=== PATIENT | female | born 1950 | race Caucasian/White ===

== ENCOUNTER → 2017-08-06 | Outpatient (CLI) | payer OTHER ==
--- NOTE | 2017-08-07 09:08 | ECHOF ---
Referral Reason:Tachycardia R00.0 MEASUREMENTS -------- HEIGHT: 165.1 cm WEIGHT: 35.4 kg BP: RVIDd: 1.5 cm (< 3.3) IVSd: 1.0 cm (0.6 - 1.1) LVIDd: 2.8 cm (3.9 - 5.3) LVPWd: 1.1 cm (0.6 - 1.1) IVSs: 1.4 cm LVIDs: 1.8 cm LVPWs: 1.4 cm LAESV Index (A-L): 9.01 ml/m Ao Diam: 2.6 cm (2.0 - 3.7) AV Cusp: 1.4 cm (1.5 - 2.6) LA Diam: 1.8 cm (2.7 - 3.8) MV E Sreekanth: 0.56 m/s MV DecT: 282 ms MV A Sreekanth: 0.84 m/s MV E/A Ratio: 0.67 RAP: 5.00 mmHg RVSP: 8.72 mmHg FINDINGS -------- Resting tachycardia (HR>100bpm). This was a technically adequate study. The left ventricular size is normal. Left ventricular wall thickness is normal. Overall left vent ricular systolic function is normal with, an EF between 55 - 60 %. The right ventricle is normal in size and function. Normal LA size by volume 22+/-6 ml/m2. The right atrium is normal in size. There is mild aortic valve sclerosis. There is no evidence of aortic regurgitation. There is no e vidence of aortic stenosis. The mitral valve leaflets are mildly thickened. There is trace to mild mitral regurgitation. Trace tricuspid regurgitation present. Right ventricular systolic pressure is normal at < 35 mmHg. There is no evidence of pulmonary hypertension. The pulmonic valve was not well visualized. The aortic root size is normal. Normal inferior vena cava with normal inspiratory collapse consistent with estimated right atrial pre ssure of 5 mmHg. There is a small pericardial effusion is located near the right ventricle. CONCLUSIONS -------- 1. Resting tachycardia (HR>100bpm). 2. This was a technically adequate study. 3. The left ventricular size is normal. 4. Left ventricular wall thickness is normal. 5. Overall left ventricular systolic function is normal with, an EF between 55 - 60 %. 6. Normal LA size by volume 22+/-6 ml/m2. 7. There is mild aortic valve sclerosis. 8. The mitral valve leaflets are mildly thickened. 9. There is trace to mild mitral regurgitation. 10. Trace tricuspid regurgitation present. 11. Right ventricular systolic pressure is normal at < 35 mmHg. 12. There is no evidence of pulmonary hypertension. 13. The pulmonic valve was not well visualized. 14. The aortic root size is normal. 15. There is a small pericardial effusion is located near the right ventricle. ROTARY DRIER FEEDER: Matthew Aguiar RDCS
== END ==
LOC: RADECHMAIN 15:23
DX: I35.8 Other nonrheumatic aortic valve disorders (principal)
CPT/HCPCS: 93306

== ENCOUNTER → 2017-08-31 | Outpatient (CLI) | payer OTHER ==
--- NOTE | 2017-09-01 07:14 | MM ---
Reason for exam: screening (asymptomatic). History: Patient is postmenopausal. Took hormonal contraceptives for 15 years. Physical Findings: A clinical breast exam by your physician is recommended on an annual basis and results should be correlated with mammographic findings. MG Screening Mammo w CAD Bilateral CC and MLO view(s) were taken. No prior studies available for comparison. The breast tissue is extremely dense which could obscure a lesion on mammography. Benign appearing bilateral calcifications. No suspicious abnormality. ASSESSMENT: Benign, BI-RAD 2 RECOMMENDATION: Routine screening mammogram of both breasts in 1 year.
== END | disposition home or self-care (01) ==
LOC: RADMAMWWP 08:44
DX: Z12.31 Encounter for screening mammogram for malignant neoplasm of breast (principal)
CPT/HCPCS: 77067

== ENCOUNTER → 2017-09-14 | Outpatient (CLI) | payer OTHER ==
--- NOTE | 2017-09-14 22:19 | MR ---
EXAMINATION TYPE: MR lumbar spine wo con DATE OF EXAM: 09/14/2017 COMPARISON: NONE HISTORY: Low back pain CONTRAST: 0 mL intravenous Gadavist. TECHNIQUE: Multiplanar, multisequence images of the lumbar spine were acquired. FINDINGS: L5-S1: No significant disc bulge or disc herniation. No spinal canal stenosis. No foraminal stenosi s. Mild facet hypertrophy is present without foraminal or spinal canal stenosis. L4-L5: Broad-based central disc bulge has mild to moderate anterior thecal sac compression. Neural fo ramen are patent. There is facet hypertrophy and ligamentum flavum laxity with posterior lateral thec al sac compression. Stenosis is not identified. The superior endplate of L5 has a compression deform ity with approximately 20% loss of mid vertebral body height... L3-L4: Mild disc bulge has anterior thecal sac contact. No spinal canal stenosis. No foraminal sten osis. Facet hypertrophy and ligamentum flavum laxity has posterior lateral thecal sac compression.. L2-L3: Broad-based disc bulge is mild anterior thecal sac compression. No AP spinal canal stenosis pr esent. Neural foramen are patent. Mild ligamentum flavum laxity is posterior lateral thecal sac compr ession. L1-L2: No significant disc bulge or disc herniation. No spinal canal stenosis. No foraminal stenosi s. . T12-L1: No significant disc bulge or disc herniation. No spinal canal stenosis. No foraminal stenos is. There is a superior endplate compression deformity. This may be slightly greater posteriorly. Po sterior wall displacement is evident estimated at 3 mm. This has moderate anterior thecal sac kristen mark. No cord contact is evident. No spinal canal stenosis is present. Neural foramen are patent. Oss eous signal appears normal suggesting the compression deformities are normal. IMPRESSION: 1. Compression deformity superior endplate L1 with posterior superior wall displacement causing moder ate anterior thecal sac compression. No cord contact is evident. 2. Superior endplate compression deformity L5. 3. Broad-based central disc bulging L4-5 with mild to moderate anterior thecal sac compression and mi ld disc bulging at L3-4. Mild disc bulge is present L2-L3
== END | disposition home or self-care (01) ==
LOC: RADMRIMAIN 07:35
DX: M51.26 Other intervertebral disc displacement, lumbar region (principal); M43.8X6 Other specified deforming dorsopathies, lumbar region
CPT/HCPCS: 72148

== ENCOUNTER → 2018-08-23 | Outpatient (CLI) | payer OTHER ==
--- NOTE | 2018-08-29 09:11 | CT ---
EXAMINATION TYPE: CT chest w con DATE OF EXAM: 08/23/2018 COMPARISON: Outside CT 06/25/2017 HISTORY: 68-year-old female Solitary pulmonary nodule TECHNIQUE: Contiguous axial scanning of the chest after the administration of 100 ml mL of Isovue 300 . Coronal/sagittal reconstructions performed. CT DLP: 105.20mGycm. Automatic exposure control utilized for a dose reduction. FINDINGS: Heart normal size without pericardial effusion. Coronary vessel calcifications are present. Aorta normal caliber with conventional arch vessel branching anatomy. No thoracic lymphadenopathy. There is some focal 2.4 x 1.3 cm soft tissue thickening along the anterior margin of the heart near t he level of the aortic root, refer to axial image 31. This density appears increased from prior exam but may represent adjacent atelectasis or scarring. This prominent biapical pleural parenchymal scarring which appears relatively similar. Multiple linear areas of scarring is demonstrated especially in the anterior mid lungs. Some endobron chial opacification within the distal inferior lingular bronchi persists. Some of the [place] cities seen previously show improvement in the interval. There is some dependent mottled density within the trachea and mild bibasilar bronchiectasis. No new consolidation and no pleural effusion. Questionable area of prior small cavitary change at the left apex seems to have resolved. Postsurgical changes at the GE junction few scattered renal hypodensities likely represent cysts sathish uring up to 1.5 cm. Dextroconvex scoliosis centered along the thoracolumbar junction. Mild superior endplate deformity of L1 is unchanged. Slight retropulsion into the ventral spinal canal is unchanged. Inferior endplate deformity of T6 in the interval without surrounding paravertebral hematoma. IMPRESSION: 1. Multifocal scattered tree-in-bud opacities as well as a small cavitary change at the left apex see n on the patient's outside 06/25/2017 CT have improved in the interval. 2. However, COPD with extensive bilateral scarring, some endobronchial mucoid plugging such as in the inferior lingula, and mild bibasilar bronchiectasis persist. There is also some retained secretions/ mucoid debris located dependently within the trachea. 3. Focal 2.4 x 1.3 cm soft tissue thickening within the anterior medial right midlung along the anter ior margin of the heart. This could represent a new area of subpleural atelectasis or scarring. An ar ea of developing pneumonia or early neoplasm are also in the differential. 3 month follow-up to reass ess after any potential treatment. 4. Inferior endplate deformity of T6. The lack of surrounding inflammation suggests a now chronic com pression deformity though new from 06/25/2017.
== END | disposition home or self-care (01) ==
LOC: RADCTMAIN 07:54
PROVIDERS: ATTEND Family Medicine
DX: J44.9 Chronic obstructive pulmonary disease, unspecified (principal); J98.4 Other disorders of lung
CPT/HCPCS: 82565; 84520; 71260; 36415; Q9967

== ENCOUNTER → 2018-09-01 | Outpatient (CLI) | payer OTHER ==
--- NOTE | 2018-09-05 09:25 | MM ---
Reason for exam: screening (asymptomatic). Last mammogram was performed 1 year ago. History: Patient is postmenopausal. Took hormonal contraceptives for 15 years. Physical Findings: A clinical breast exam by your physician is recommended on an annual basis and results should be correlated with mammographic findings. MG Screening Mammo w CAD Bilateral CC, MLO, and XCCL view(s) were taken. Prior study comparison: August 31, 2017, bilateral MG screening mammo w CAD. The breast tissue is extremely dense which could obscure a lesion on mammography. Bilateral vascular calcifications. No significant changes when compared with prior studies. ASSESSMENT: Negative, BI-RAD 1 RECOMMENDATION: Routine screening mammogram of both breasts in 1 year. Patient should continue monthly self breast exams. A negative report should not preclude additional follow up of suspicious palpable abnormalities.
== END | disposition home or self-care (01) ==
LOC: RADMAMWWP 10:44
PROVIDERS: ATTEND Family Medicine
DX: Z12.31 Encounter for screening mammogram for malignant neoplasm of breast (principal)
CPT/HCPCS: 77067

== ENCOUNTER → 2019-04-18 | Outpatient (CLI) | payer OTHER ==
[2019-04-18 11:03] LABS: Basophils # (A) 0.1 k/uL (0-0.2); Basophils % (A) 2 %; Eosinophils # (A) 0.3 k/uL (0-0.7); Eosinophils % (A) 4 %; HGB 16.7 gm/dL (11.4-16.0); Lymphocytes # (A) 1.1 k/uL (1.0-4.8); Lymphocytes % (A) 15 %; MCH 29.3 pg (25.0-35.0); MCHC 30.2 g/dL (31.0-37.0); MCV 97.1 fL (80.0-100.0); Mean Platelet Volume 8.5; Monocytes # (A) 0.2 k/uL (0-1.0); Monocytes % (A) 3 %; Neutrophils # (A) 5.8 k/uL (1.3-7.7); Neutrophils % (A) 73 %; Platelet Count 272 k/uL (150-450); RBC 5.68 m/uL (3.80-5.40); RDW 13.1 % (11.5-15.5); WBC 7.9 k/uL (3.8-10.6)
[2019-04-18 11:04] LABS: HCT 55.1 % (34.0-46.0)
[2019-04-18 11:36] LABS: Albumin 4.5 g/dL (3.5-5.0); Calcium 10.1 mg/dL (8.4-10.2); Potassium 4.2 mmol/L (3.5-5.1); Total Bilirubin 0.5 mg/dL (0.2-1.3); Total Protein 7.9 g/dL (6.3-8.2)
[2019-04-18 11:52] LABS: T4, Free (Free Thyroxine) 0.87 ng/dL (0.78-2.19)
--- NOTE | 2019-04-18 13:37 | CT ---
EXAMINATION TYPE: CT abdomen pelvis wo/w con DATE OF EXAM: 04/18/2019 COMPARISON: None HISTORY: Stomach pains CT DLP: 489.1 mGycm CONTRAST: CT scan of the abdomen and pelvis is performed with Oral Contrast and with IV Contrast, patient injec edgar with 78 mL of Isovue 300. FINDINGS: LUNG BASES-: No visible nodule. No infiltrate. LIVER/GB: No calcified gallstones. No space occupying hepatic lesion. Biliary tree is of normal ca liber. PANCREAS: No inflammation. No distinct mass. SPLEEN: No splenic enlargement. No lesion seen. ADRENALS: No nodule. No thickening. KIDNEYS/BLADDER: No hydronephrosis. Several tiny sub-3 mm calculi left kidney. No distinct renal mas s. Urinary bladder grossly unremarkable. BOWEL: Normal appendix. Normal bowel caliber. No inflammation. GENITAL ORGANS: No gross abnormality. LYMPH NODES: No greater than 1cm abdominal or pelvic lymph nodes are appreciated. AORTA: No significant abnormality. OSSEOUS STRUCTURES: Chronic mild compression fracture superior endplate of L5. OTHER: No significant additional abnormality is seen. IMPRESSION: 1. Nonobstructing nephrolithiasis. 2. Chronic mild superior endplate compression fracture of L5.
[2019-04-18 18:30] LABS: Gliadin AB IgA, Deaminated NEGATIVE (NEGATIVE); Gliadin AB IgA, Unit <0.2 U/mL; Gliadin AB IgG, Deaminated NEGATIVE (NEGATIVE)
== END | disposition home or self-care (01) ==
LOC: RADCTMAIN 10:12
PROVIDERS: ATTEND Internal Medicine
DX: N20.0 Calculus of kidney (principal); R10.9 Unspecified abdominal pain
CPT/HCPCS: 84439; 80053; 82150; 83690; 84443; 85025; 83516 ×4; 74178; Q9967 ×2

== ENCOUNTER → 2019-10-20 | Outpatient (CLI) | payer OTHER ==
--- NOTE | 2019-10-21 13:38 | CT ---
EXAMINATION TYPE: CT ChestAbdPelvis wo con DATE OF EXAM: 10/20/2019 INDICATION: Abnormal weight loss COMPARISON: 04/18/2019 CT DLP: 459 mGycm CONTRAST: Performed with Oral Contrast and no intravenous contrast due to elevated laboratory results. TECHNIQUE: Axial images at 5 mm thick sections. Reconstructed images in the coronal plane. Delayed images through the kidneys. FINDINGS: CT CHEST: Portion of the thyroid visualized is normal. There is a 1.5 x 1.8 cm lobular density at the posterior right apex. Workup for neoplasm is recommend ed. There is a 1.5 x 0.5 cm thickening along the superior left apex. Series 3 image 7. There is some mild thickening along the right major fissure. Small peripheral nodule is in the right middle lobe measuring 0.6 cm. Series 4 image 26. No enlarged mediastinal or hilar adenopathy is evident. The ascending aorta diameter at the level of the main pulmonary artery is 3.2 cm. The main pulmonary artery diameter at the bifurcation is 2.4 cm. Coronary artery calcification is present. CT ABDOMEN: Liver: Normal Spleen: Normal Pancreas: Normal Adrenal glands: The adrenal glands are normal. Gallbladder: Normal Kidneys: No masses are evident. No hydronephrosis is present. There is a 1.2 cm cyst measuring 6 Ho unsfield units at superior pole left kidney. There is a 0.6 cm cortical renal cyst within the anterio r right mid kidney measuring 8 Hounsfield units. Nonobstructing punctate renal stones are present wit hin the left kidney. The largest in the upper pole measures 0.2 cm. Series 3 image 58. A posterior la teral calcification measures 0.2 cm. Series image 60 inferior pole there is a 0.5 cm calcification. S eries 3 image 66. A punctate calcification superior pole right kidney is nonobstructing. Aorta: Vascular calcification is within the aorta. Inferior vena cava: Normal. CT PELVIS: Loops of bowel within the abdomen and pelvis are normal. There are loops of bowel which are incom pletely distended or lack oral contrast limiting their evaluation. Appendix: Not identified. No dilated tubular structures or inflammatory changes are evident. This is limited given lack of abdominal fat. Urinary bladder: Decompressed limiting evaluation. Genitourinary structures: Uterus appears unremarkable. Adnexal regions are clear. Osseous structures: No suspicious lytic or sclerotic lesions. IMPRESSIONS: 1. Apical lung masses larger on the posterior right. Additional workup for lung neoplasm is recommend ed. 2. Nonobstructing bilateral renal stones. A Yellow level critical message alert has been initiated for Arias Silva DO via the [employer] Critical Results System on 10/21/2019 1:36 PM. This message alert has been sent to Arias mcbride DO via the preferences provided by the clinician for the receipt of Radiology Critical Findings. Message ID [id number].
== END | disposition home or self-care (01) ==
LOC: RADCTMAIN 10:33
PROVIDERS: ATTEND Family Medicine
DX: N20.0 Calculus of kidney (principal); R91.8 Other nonspecific abnormal finding of lung field; R63.4 Abnormal weight loss
CPT/HCPCS: 71250; 74176; 82565; 84520

== ENCOUNTER 2019-12-28 12:30 | Day surgery (SDC) | payer MEDICARE, OTHER ==
[2019-12-26 16:16] VITALS: BMI 11.8
[~2019-12-28 12:30] MED LIST: LACTATED RINGERS 1,000 ML IV SCH; LIDOCAINE 1% (10MG/ML) FOR IV START INTRADERMA PRN
[2019-12-28 13:00] VITALS: TEMP 97.7
[2019-12-28] MEDS ORDERED: fentaNYL (PF) 50 MCG/ML 2 ML AMP IV ONE (13:28)
[2019-12-28] MEDS ORDERED: LIDOCAINE 1% INJ 10MG/ML (20 ML MDV) ONE (14:05)
[2019-12-28] MEDS ORDERED: PROPOFOL 10 MG/ML 20 ML VIAL IV ONE (14:05)
[2019-12-28 15:06] VITALS: RESP 16
--- NOTE | 2019-12-28 15:16 | P.PCN ---
Date of Procedure: 12/28/19 Description of Procedure: Brief history: Patient is a pleasant 69-year-old female presenting for outpatient EGD and colonoscopy for evaluation of GERD and rectal hemorrhage. Patient has been seen in the office reporting abdominal pain, reflux, and intermittent blood per rectum. Last EGD and colonoscopy in 2015. Patient had approximately 10 pounds of weight loss unintentionally. Procedure performed: Esophagogastroduodenoscopy with biopsy Colonoscopy Estimated blood loss: Minimal. Preoperative diagnosis: GERD, rectal hemorrhage, last colonoscopy 2015 Anesthesia: MAC Procedure: After informed consent was obtained from the patient was brought into the endoscopy unit and IV sedation was administered by anesthesia under continuous monitoring. Initially upper endoscopy was done. The Olympus GF 190 video endoscope was inserted into the mouth and esophagus intubated without any diffi culty and was gradually advanced into the gastric remnant and then into the small bowel. The patient's anatomy was consistent with prior gastric bypass surgery with anastomosis intact. Mild erythema in the gastric remnant with biopsies taken. The small bowel appeared normal with biopsies taken. The scope was then withdrawn back through the small bowel into the gastric remnant and into the esophagus which appeared normal with the GE junction located at 40 cm from the incisors. At this time the patient continued to remain sedation. Initial digital rectal examination was normal. Olympus CF 190 video colonoscope was then inserted into the rectum and gradually advanced to the cecum without any difficulty. Careful examination was performed as the scope was gradually being withdrawn. The prep was excellent. The cecum, ascending colon, transverse colon, descending colon, sigmoid colon and rectum appeared normal. Retroflexion was performed in the rectum and no lesions were noted, low-grade internal hemorrhoids seen. A few scattered diverticula noted in the left colon.. Patient tolerated the procedure well. Impression: 1. Mild gastritis. Prior gastric bypass noted. Biopsies taken of the small bowel and gastric remnant. 2. Mild left colonic diverticulosis. Low-grade internal hemorrhoids. Otherwise normal-appearing colon from rectum to cecum. Recommendations: Findings of this examination were discussed with the patient as well as her sister. Okay to resume diet. Okay to resume medications. Follow-up in [facility] as scheduled.
[2019-12-28 15:18] VITALS: BP 175/95; PULSE 97
== END 2019-12-28 15:38 | disposition home or self-care (01) ==
LOC: ORWHC2ENDO 12:30
PROVIDERS: ATTEND Internal Medicine
DX: K57.30 Diverticulosis of large intestine without perforation or abscess without bleeding (principal); K64.8 Other hemorrhoids; K21.9 Gastro-esophageal reflux disease without esophagitis; K62.5 Hemorrhage of anus and rectum; K29.70 Gastritis, unspecified, without bleeding; I10 Essential (primary) hypertension; E78.5 Hyperlipidemia, unspecified; J44.9 Chronic obstructive pulmonary disease, unspecified; Z98.49 Cataract extraction status, unspecified eye; Z98.84 Bariatric surgery status; Z98.890 Other specified postprocedural states; Z97.2 Presence of dental prosthetic device (complete) (partial); F17.210 Nicotine dependence, cigarettes, uncomplicated; Z79.82 Long term (current) use of aspirin; Z79.899 Other long term (current) drug therapy
CPT/HCPCS: 45378; 43239; J2001; J3010; J2704

== ENCOUNTER 2020-07-03 21:54 | Emergency (ER) | payer OTHER ==
[2020-07-03 22:51] LABS: Anisocytosis Slight; Basophils # (A) 0.1 k/uL (0-0.2); Basophils % (A) 1 %; Eosinophils # (A) 0.2 k/uL (0-0.7); Eosinophils % (A) 2 %; HCT 51.9 % (34.0-46.0); HGB 16.6 gm/dL (11.4-16.0); Hypochromasia Slight; Lymphocytes # (A) 0.8 k/uL (1.0-4.8); Lymphocytes % (A) 8 %; MCH 27.6 pg (25.0-35.0); MCHC 31.9 g/dL (31.0-37.0); MCV 86.6 fL (80.0-100.0); Mean Platelet Volume 8.2; Monocytes # (A) 0.4 k/uL (0-1.0); Monocytes % (A) 4 %; Neutrophils # (A) 7.3 k/uL (1.3-7.7); Neutrophils % (A) 82 %; Platelet Count 241 k/uL (150-450); RBC 5.99 m/uL (3.80-5.40); WBC 8.9 k/uL (3.8-10.6)
[2020-07-03 23:05] LABS: INR 1.1 (<1.2); Partial Thromboplastin Time 22.6 sec (22.0-30.0); Prothrombin Time 11.1 sec (9.0-12.0)
[2020-07-03 23:06] LABS: Albumin 4.1 g/dL (3.5-5.0); Magnesium 1.5 mg/dL (1.6-2.3); Total Bilirubin 0.5 mg/dL (0.2-1.3); Total Protein 7.2 g/dL (6.3-8.2)
[2020-07-03 23:14] LABS: D-Dimer 0.83 mg/L FEU (<0.60)
--- NOTE | 2020-07-03 23:31 | XR ---
EXAMINATION TYPE: XR chest 2V DATE OF EXAM: 07/03/2020 COMPARISON: 04/12/2020 HISTORY: Short of breath TECHNIQUE: FINDINGS: There is no heart failure nor confluent pneumonic infiltrate. There is pulmonary hyperinfla tion and flattening of the diaphragm. Thoracic aorta is atheromatous. There are no hilar masses. Ther e is some linear density in the left upper lobe consistent with pleural scarring and atelectasis karla g the major fissure. There is osteopenia. There is mild thoracic kyphosis and anterior wedging thoracic vertebra up to 35% . IMPRESSION: COPD. There is some linear density along the left major fissure consistent with scarring that is increased compared to old exam. No heart failure.
[2020-07-03] MEDS ORDERED: POTASSIUM CHLORIDE ER 20 MEQ TAB.ER PO STA (23:46)
[2020-07-03] MEDS ORDERED: MAGNESIUM SULFATE-D5W PMX 1 GM in DEXTROSE/WATER 1 100ML.BAG IVPB ONE (23:47)
[2020-07-04] MEDS: POTASSIUM CHLORIDE 10 MEQ in WATER FOR INJECTION 1 100ML.BAG IVPB SCH ×2 (00:16→01:21)
--- NOTE | 2020-07-04 00:31 | CT ---
EXAM: CT Angiography Chest With Intravenous Contrast CLINICAL HISTORY: ITS.REASON CT Reason: leg swelling, hypoxia TECHNIQUE: Axial computed tomographic angiography images of the chest with intravenous contrast. CTDI is 8.47 mGy and DLP is 161.2 mGy-cm. This CT exam was performed using one or more of the following dose reduction techniques: automated exposure control, adjustment of the mA and/or kV according to patient size, and/or use of iterative reconstruction technique. MIP reconstructed images were created and reviewed. COMPARISON: No relevant prior studies available. FINDINGS: Pulmonary arteries: Unremarkable. No pulmonary embolism. Aorta: No acute findings. No thoracic aortic aneurysm. Lungs: Mild right middle lobe and lingular bronchiectasis and tiny pulmonary nodules, to a lesser extent in the right base. Biapical scarring, right greater than left, unchanged from 10/20/2019. Pleural space: Unremarkable. No significant effusion. No pneumothorax. Heart: Unremarkable. No cardiomegaly. No significant pericardial effusion. No evidence of RV dysfunction. Bones/joints: No acute fracture. No dislocation. Soft tissues: Surgical clips in the epigastrium. Lymph nodes: Unremarkable. No enlarged lymph nodes. IMPRESSION: 1. No acute pulmonary embolism. 2. Mild right middle lobe and lingular bronchiectasis and tiny pulmonary nodules, to a lesser extent in the right base, which may be seen in the setting of chronic or recurrent infection. 3. Biapical scarring, right greater than left, unchanged from 10/20/2019.
[2020-07-04 00:57] VITALS: RESP 16
[2020-07-04] MEDS ORDERED: methylPREDNISolone SOD SUCCI 125 MG/2 ML VIAL IV STA (01:07)
[2020-07-04] MEDS ORDERED: IPRATROPIUM-ALBUTEROL 3 ML NEB INHALATION STA (01:07)
[2020-07-04 02:05] VITALS: BP 155/81; PULSE 111; TEMP 97.7
--- NOTE | 2020-07-04 02:33 | ED ---
General Adult HPI - General Chief complaint: Recheck/Abnormal Lab/Rx Stated complaint: low potassium Source: patient Mode of arrival: wheelchair Limitations: no limitations - History of Present Illness Initial comments: 69-year-old female with past medical history of chronic back pain, COPD who presents emergency room with reported low potassium levels. The patient is seen at the [place] clinic. Reports that she had laboratory studies done yesterday for routine blood work. She was called this evening to be notified that her potassium was 2.8 and she needed to go to the emergency department for replacement. She was recently placed on Lasix 2 weeks ago for lower extremity swelling. States that she was not placed on a potassium supplement. The patient does arrive tachycardic, hypoxic. She has no complaints at this time. She denies palpitations or shortness of breath. No fevers, chills or cough. She does not wear home oxygen. States she's been using her inhalers without difficulty. She denies any chest pain. No history of heart failure. No history of DVT or PE. 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 - Related Data Home Medications Medication Instructions Recorded Confirmed Albuterol Inhaler [Ventolin Hfa 2 puff INHALATION RT-Q4H PRN 12/27/19 07/03/20 Inhaler] Dicyclomine [Bentyl] 10 mg PO TID PRN 12/27/19 07/03/20 Famotidine [Pepcid] 20 mg PO BID PRN 12/27/19 07/03/20 Gabapentin [Neurontin] 100 mg PO DIRECTED 12/27/19 07/03/20 Metoprolol Tartrate [Lopressor] 25 mg PO BID 12/27/19 07/03/20 Mirtazapine 45 mg PO HS 12/27/19 07/03/20 Omeprazole 20 mg PO DAILY PRN 12/27/19 07/03/20 Verapamil [Isoptin] 40 mg PO BID 12/27/19 07/03/20 hydrOXYzine pamoate [hydrOXYzine 25 mg PO BID PRN 12/27/19 07/03/20 PAMOATE] traMADol HCL 50 mg PO BID PRN 12/27/19 07/03/20 Atorvastatin Calcium [Lipitor] 10 mg PO HS 07/03/20 07/03/20 Budesonide/Formoterol Fumarate 2 puff INHALATION RT-BID 07/03/20 07/03/20 [Symbicort 160-4.5 Mcg Inhaler] Cetirizine HCl 10 mg PO DAILY 07/03/20 07/03/20 Cholecalciferol [Vitamin D3 (25 50 mcg PO DAILY 07/03/20 07/03/20 Mcg = 1000 Iu)] Fluticasone Nasal [place] [Flonase 1 spray EA NOSTRIL BID PRN 07/03/20 07/03/20 Nasal [place]] Tiotropium 2.5 Mcg/Puff [Spiriva 1 puff INHALATION RT-DAILY 07/03/20 07/03/20 Respimat 2.5 Mcg] Previous Rx's Medication Instructions Recorded predniSONE [Deltasone] 20 mg PO BID #10 tab 07/04/20 Allergies Allergy/AdvReac Type Severity Reaction Status Date / Time No Known Allergies Allergy Verified 07/03/20 22:59 Review of Systems ROS Statement: Those systems with pertinent positive or pertinent negative responses have been documented in the HPI. ROS Other: All systems not noted in ROS Statement are negative. Past Medical History Past Medical History: COPD Additional Past Medical History / Comment(s): Recent weight loss, back pain, irreg heart rate, History of Any Multi-Drug Resistant Organisms: None Reported Past Surgical History: Tonsillectomy Additional Past Surgical History / Comment(s): Gastric bypass for an ulcer, cataract surgery both eyes. Past Anesthesia/Blood Transfusion Reactions: No Reported Reaction Past Psychological History: Depression Smoking Status: Current every day smoker Past Alcohol Use History: Rare Past Drug Use History: None Reported - Past Family History Mother Family Medical History: No Reported History Father Additional Family Medical History / Comment(s): Brain aneurysm General Exam Limitations: no limitations Course Vital Signs 07/03/20 07/03/20 07/04/20 22:01 23:21 00:56 Temperature 97.5 F L Pulse Rate 130 H 115 H 112 H Respiratory 26 H 18 16 Rate Blood Pressure 160/82 181/88 O2 Sat by Pulse 87 L 95 96 Oximetry 07/04/20 07/04/20 07/04/20 01:29 01:45 01:55 Temperature Pulse Rate 98 111 H 108 H Respiratory 16 Rate Blood Pressure 150/78 O2 Sat by Pulse 97 Oximetry 07/04/20 02:04 Temperature 97.7 F Pulse Rate 111 H Respiratory 16 Rate Blood Pressure 155/81 O2 Sat by Pulse 92 L Oximetry EKG Findings - EKG Comments: EKG Findings:: EKG demonstrates sinus tachycardia with PACs. Rate of 125. OR interval 124. QRS 68. QTC of 438. No acute ST segment elevations or depressions Medical Decision Making - Medical Decision Making Upon arrival the patient was placed into room 7. There are history and physical exam was performed. Patient does arrive and is saturating 87% on room air. She is placed on 3 L nasal cannula. I did recommend workup for her hypoxia even though she is asymptomatic for which the patient did agree to. Laboratory studies were conducted. Demonstrates a d-dimer 0.83. Lactic acid 4.1. Covid not detected. Potassium is 3. Magnesium is 1.5. I did replace the patient's magnesium and potassium. Chest x-ray was performed which demonstrates COPD. A linear density along the left major fissure consistent with scarring. Due to the elevated d-dimer, I did recommend CT of the chest which the patient did agree to. CT is performed which demonstrates no signs of pulmonary embolism. The results are discussed the patient. Did recommend admission for her hypoxia however the patient refused. She is requesting to go home. The patient is notified of the risks of leaving against my advice for which she understood and is able to recite these risks on her own. The patient was given a DuoNeb breathing treatment and 125 mg of Solu-Medrol. I did monitor her in the emergency department and she does have improvement in her oxygenation. Patient is titrated off the oxygen and does continue to maintain saturations of 92%. Heart rate did improve. I did request a place the patient on steroids for the next 5 days for which she did agree to. She is to use her nebulizer every 4 hours. Return to the emergency department for any new or worsening symptoms. She must see her primary care physician and have repeat magnesium and potassium levels drawn. If the patient's continues on Lasix she may require potassium replacement daily. Patient understood this. Given written and verbal discharge instructions and discharged home in stable condition - Lab Data Result diagrams: 07/03/20 22:34 07/03/20 22:34 Lab Results 07/03/20 07/03/20 07/03/20 Range/Units 22:34 22:34 22:34 WBC 8.9 (3.8-10.6) k/uL RBC 5.99 H (3.80-5.40) m/uL Hgb 16.6 H (11.4-16.0) gm/dL Hct 51.9 H (34.0-46.0) % MCV 86.6 (80.0-100.0) fL MCH 27.6 (25.0-35.0) pg MCHC 31.9 (31.0-37.0) g/dL RDW 17.0 H (11.5-15.5) % Plt Count 241 (150-450) k/uL MPV 8.2 Neutrophils % 82 % Lymphocytes % 8 % Monocytes % 4 % Eosinophils % 2 % Basophils % 1 % Neutrophils # 7.3 (1.3-7.7) k/uL Lymphocytes # 0.8 L (1.0-4.8) k/uL Monocytes # 0.4 (0-1.0) k/uL Eosinophils # 0.2 (0-0.7) k/uL Basophils # 0.1 (0-0.2) k/uL Hypochromasia Slight Anisocytosis Slight PT 11.1 (9.0-12.0) sec INR 1.1 (<1.2) APTT 22.6 (22.0-30.0) sec D-Dimer 0.83 H (<0.60) mg/L FEU Sodium (137-145) mmol/L Potassium (3.5-5.1) mmol/L Chloride (98-107) mmol/L Carbon Dioxide (22-30) mmol/L Anion Gap mmol/L BUN (7-17) mg/dL Creatinine (0.52-1.04) mg/dL Est GFR (CKD-EPI)AfAm (>60 ml/min/1.73 sqM) Est GFR (CKD-EPI)NonAf (>60 ml/min/1.73 sqM) Glucose (74-99) mg/dL Lactic Ac Sepsis Rflx Plasma Lactic Acid Shaw (0.7-2.0) mmol/L Calcium (8.4-10.2) mg/dL Magnesium (1.6-2.3) mg/dL Total Bilirubin (0.2-1.3) mg/dL AST (14-36) U/L ALT (4-34) U/L Alkaline Phosphatase (38-126) U/L Troponin I (0.000-0.034) ng/mL NT-Pro-B Natriuret Pep pg/mL Total Protein (6.3-8.2) g/dL Albumin (3.5-5.0) g/dL Coronavirus (PCR) Not Detected (Not Detectd) 07/03/20 07/03/20 07/03/20 Range/Units 22:34 22:34 22:34 WBC (3.8-10.6) k/uL RBC (3.80-5.40) m/uL Hgb (11.4-16.0) gm/dL Hct (34.0-46.0) % MCV (80.0-100.0) fL MCH (25.0-35.0) pg MCHC (31.0-37.0) g/dL RDW (11.5-15.5) % Plt Count (150-450) k/uL MPV Neutrophils % % Lymphocytes % % Monocytes % % Eosinophils % % Basophils % % Neutrophils # (1.3-7.7) k/uL Lymphocytes # (1.0-4.8) k/uL Monocytes # (0-1.0) k/uL Eosinophils # (0-0.7) k/uL Basophils # (0-0.2) k/uL Hypochromasia Anisocytosis PT (9.0-12.0) sec INR (<1.2) APTT (22.0-30.0) sec D-Dimer (<0.60) mg/L FEU Sodium 142 (137-145) mmol/L Potassium 3.0 L (3.5-5.1) mmol/L Chloride 99 (98-107) mmol/L Carbon Dioxide 31 H (22-30) mmol/L Anion Gap 12 mmol/L BUN 25 H (7-17) mg/dL Creatinine 0.92 (0.52-1.04) mg/dL Est GFR (CKD-EPI)AfAm 73 (>60 ml/min/1.73 sqM) Est GFR (CKD-EPI)NonAf 64 (>60 ml/min/1.73 sqM) Glucose 147 H (74-99) mg/dL Lactic Ac Sepsis Rflx Plasma Lactic Acid Shaw 4.1 H* (0.7-2.0) mmol/L Calcium 10.0 (8.4-10.2) mg/dL Magnesium 1.5 L (1.6-2.3) mg/dL Total Bilirubin 0.5 (0.2-1.3) mg/dL AST 27 (14-36) U/L ALT 16 (4-34) U/L Alkaline Phosphatase 181 H (38-126) U/L Troponin I 0.014 (0.000-0.034) ng/mL NT-Pro-B Natriuret Pep pg/mL Total Protein 7.2 (6.3-8.2) g/dL Albumin 4.1 (3.5-5.0) g/dL Coronavirus (PCR) (Not Detectd) 07/03/20 07/03/20 Range/Units 22:34 23:51 WBC (3.8-10.6) k/uL RBC (3.80-5.40) m/uL Hgb (11.4-16.0) gm/dL Hct (34.0-46.0) % MCV (80.0-100.0) fL MCH (25.0-35.0) pg MCHC (31.0-37.0) g/dL RDW (11.5-15.5) % Plt Count (150-450) k/uL MPV Neutrophils % % Lymphocytes % % Monocytes % % Eosinophils % % Basophils % % Neutrophils # (1.3-7.7) k/uL Lymphocytes # (1.0-4.8) k/uL Monocytes # (0-1.0) k/uL Eosinophils # (0-0.7) k/uL Basophils # (0-0.2) k/uL Hypochromasia Anisocytosis PT (9.0-12.0) sec INR (<1.2) APTT (22.0-30.0) sec D-Dimer (<0.60) mg/L FEU Sodium (137-145) mmol/L Potassium (3.5-5.1) mmol/L Chloride (98-107) mmol/L Carbon Dioxide (22-30) mmol/L Anion Gap mmol/L BUN (7-17) mg/dL Creatinine (0.52-1.04) mg/dL Est GFR (CKD-EPI)AfAm (>60 ml/min/1.73 sqM) Est GFR (CKD-EPI)NonAf (>60 ml/min/1.73 sqM) Glucose (74-99) mg/dL Lactic Ac Sepsis Rflx Y Plasma Lactic Acid Shaw (0.7-2.0) mmol/L Calcium (8.4-10.2) mg/dL Magnesium (1.6-2.3) mg/dL Total Bilirubin (0.2-1.3) mg/dL AST (14-36) U/L ALT (4-34) U/L Alkaline Phosphatase (38-126) U/L Troponin I (0.000-0.034) ng/mL NT-Pro-B Natriuret Pep 2920 pg/mL Total Protein (6.3-8.2) g/dL Albumin (3.5-5.0) g/dL Coronavirus (PCR) (Not Detectd) Disposition Clinical Impression: Hypokalemia, Hypoxia, Hypomagnesemia, COPD (chronic obstructive pulmonary disease) Disposition: HOME SELF-CARE Condition: Stable Instructions (If sedation given, give patient instructions): Hypokalemia (ED), COPD (Chronic Obstructive Pulmonary Disease) (ED) Additional Instructions: Please follow up with your PCP in 2-4 days. You need to have your magnesium and potassium levels redrawn. If you continue on the water pill, you may need to take potassium supplements daily. Talk to your doctor about this. Return to the ED for any new or worsening symptoms. Prescriptions: predniSONE [Deltasone] 20 mg PO BID #10 tab Is patient prescribed a controlled substance at d/c from ED?: No Referrals: [facility],Clinic [Primary Care Provider] - 1-2 days Time of Disposition: 02:33
== END 2020-07-04 02:50 | disposition home or self-care (01) ==
LOC: EC 21:54
DX: J44.9 Chronic obstructive pulmonary disease, unspecified (principal); E87.6 Hypokalemia; E83.42 Hypomagnesemia; Z20.822 Contact with and (suspected) exposure to COVID-19; F32.9 Major depressive disorder, single episode, unspecified; F17.200 Nicotine dependence, unspecified, uncomplicated
CPT/HCPCS: 36415; 94640; 93005; 85379; 83880; 80053; 83605; 83735; 84484; 85025; 85610; 85730; 87635; 71046; 71275; 99285; 96365; 96375; 96376; J2930; J3475; J3480; Q9967

== ENCOUNTER → 2020-08-07 | Outpatient (CLI) | payer OTHER ==
--- NOTE | 2020-08-07 11:52 | MR ---
EXAMINATION TYPE: MR tspine/lspine wo con DATE OF EXAM: 08/07/2020 COMPARISON: CT 07/04/2020, 10/20/2019 HISTORY: Low back pain, wedge compression fx T7-8 TECHNIQUE: Multiplanar, multisequence imaging of the thoracic and lumbar spine is performed without I V contrast. FINDINGS: Thoracic spine MRI: Thoracic vertebral bodies show multiple compression deformities to include superior endplate of T5, T 6, and T7, T8, T9 show more dramatic loss of vertebral body height. T7, T8, T9 shows intermediate sig nal on T1-weighted sequences, increased signal on T2-weighted sequences consistent with subacute comp ression fractures. Loss of height is approximately 50% at T9, between 25 and 50% at the superior endp late of T8 and T7, minimal at T5 and T6. Disc spaces are relatively maintained. Mild retropulsion present at T7-8, T8-9 causing minimal anterior mass effect on the thecal sac, suspe ct some neural foraminal encroachment present at T6-7, T7-8, T8-9 and T9-10 bilaterally. Graph impres mark: Osteoporotic compression fractures. Facet arthropathy changes are present at the lower thoracic spine. No sizable disc herniation. There may be some atelectatic changes within the lungs, probable scarring. Thoracic cord signal is maintained. Impression: Subacute osteoporotic compression fractures as described. Lumbar spine MRI: L1 shows a loss of height of approximately 50%. There is retropulsion of the superior endplate by salma roximately 5 to 6 mm. There is some increased signal on T2-weighted sequences along the inferior christy in of the vertebral body, intermediate signal on T1 suggesting subacute fracture. Inferior margin of L4 also shows similar findings, there is superior extension of the inferior endplate, depression of t he superior endplate of L5 with associated Schmorl's node formation. There is a spinal curvature. Loss of disc height signal is greatest at L2-3, minimal retrolisthesis grade 1 L2 on L3. The conus is at L1-2 and is unremarkable. L5-S1 shows a broad-based posterior disc bulge possibly contacting the proximal S1 nerve roots, circu mferential extension of broad-based disc bulge encroaches upon the foramina greater on the right. No significant spinal stenosis. L4-5: There is some posterior extension of superior endplate of L5, retropulsion with circumferential posterior extension endplate disc complex present causing anterior mass effect on the thecal sac. La teral extension endplate disc complex encroaches on the neural foramina. There is a trefoil appearanc e of the thecal sac. There is facet arthropathy with hypertrophy ligamentum flavum. Suspect some encr oachment on the lateral recesses greater on the left. L3-4: Posterior disc bulge causes mild anterior mass effect on the thecal sac. There is facet arthrop athy with hypertrophy ligamentum flavum causing some posterior lateral mass effect on the thecal sac. No significant spinal stenosis. L2-3: Posterior disc bulge causes mild anterior mass effect on the thecal sac. There is some facet ar thropathy change. No significant spinal stenosis or foraminal encroachment. L1-2: Posterior disc bulge causes minimal mass effect on the anterior thecal sac. No significant spin al stenosis or foraminal encroachment. T12-L1: Mild retropulsion of the superior endplate of L1. No significant spinal stenosis. IMPRESSION: Osteoporotic compression deformity inferior L4, inferior L1, acute on chronic at L1 suspe cted, superior aspect L5 appears chronic. There is degenerative disc disease, facet arthropathy as de scribed.
== END | disposition home or self-care (01) ==
LOC: RADMRIMAIN 08:24
PROVIDERS: ATTEND Nurse Practitioner Acute Care
DX: M48.54XA Collapsed vertebra, not elsewhere classified, thoracic region, initial encounter for fracture (principal); M51.36 Other intervertebral disc degeneration, lumbar region; M12.88 Other specific arthropathies, not elsewhere classified, other specified site; M51.26 Other intervertebral disc displacement, lumbar region
CPT/HCPCS: 72146; 72148

== ENCOUNTER 2020-08-21 17:20 | Inpatient (IN) | payer OTHER, MEDICARE ==
[2020-08-21] MEDS ORDERED: DILTIAZEM DRIP BOLUS FROM BAG 1 MG SOLN IV ONE (17:50)
[2020-08-21] MEDS ORDERED: SODIUM CHLORIDE 0.9% 500 ML 500 ML IV STA (17:50)
--- NOTE | 2020-08-21 17:50 | ED ---
Chest Pain HPI - General Chief Complaint: Chest Pain Stated Complaint: chest pain Time Seen by Provider: 08/21/20 17:43 Source: patient Mode of arrival: wheelchair Limitations: no limitations - History of Present Illness Initial Comments: This patient is a 70-year-old woman who presents with complaint of not feeling well. Also having intermittent chest pains and shortness of breath. She states that the pain is in the left side of her chest, aching, and intermittent. She is not having pain during the history and physical. MD Complaint: chest pain -: days(s) Pain Location: left chest Pain Radiation: none Severity scale (1-10): 0 Quality: aching Consistency: intermittent, now resolved Improves With: nothing Worsens With: exertion Anginal Symptoms: dyspnea Treatments Prior to Arrival: none - Related Data Home Medications Medication Instructions Recorded Confirmed Albuterol Inhaler [Ventolin Hfa 1 puff INHALATION RT-QID PRN 12/27/19 08/21/20 Inhaler] Famotidine [Pepcid] 20 mg PO BID PRN 12/27/19 08/21/20 Metoprolol Tartrate [Lopressor] 25 mg PO BID 12/27/19 08/21/20 Mirtazapine 45 mg PO HS 12/27/19 08/21/20 Omeprazole 20 mg PO DAILY PRN 12/27/19 08/21/20 Verapamil [Isoptin] 40 mg PO BID 12/27/19 08/21/20 hydrOXYzine pamoate [hydrOXYzine 25 mg PO BID PRN 12/27/19 08/21/20 PAMOATE] traMADol HCL 50 mg PO BID PRN 12/27/19 08/21/20 Budesonide/Formoterol Fumarate 2 puff INHALATION RT-BID 07/03/20 08/21/20 [Symbicort 160-4.5 Mcg Inhaler] Cetirizine HCl 10 mg PO DAILY PRN 07/03/20 08/21/20 Fluticasone Nasal [place] [Flonase 1 spray EA NOSTRIL BID PRN 07/03/20 08/21/20 Nasal [place]] Tiotropium 2.5 Mcg/Puff [Spiriva 2 puff INHALATION RT-DAILY 07/03/20 08/21/20 Respimat 2.5 Mcg] [id number] 1 tab PO Q4HR PRN 08/21/20 08/21/20 [Excedrin] Calcium Carbonate/Vitamin D3 3 tab PO DAILY 08/21/20 08/21/20 [Calcium 500 mg-Vit D3 5 mcg (200 Unit)] Cyclobenzaprine [Flexeril] 5 mg PO BID PRN 08/21/20 08/21/20 Lactose-Reduced Food [Ensure 1 dose PO TID 08/21/20 08/21/20 Original] Levothyroxine Sodium 25 mcg PO DAILY 08/21/20 08/21/20 Lidocaine 5% Patch [Lidoderm] 1 patch TOPICAL DAILY PRN 08/21/20 08/21/20 Potassium Chloride ER [K-Dur 10] 10 meq PO DIRECTED PRN 08/21/20 08/21/20 Allergies Allergy/AdvReac Type Severity Reaction Status Date / Time alendronate sodium Allergy Rash/Hives Verified 08/21/20 19:53 bupropion [From Wellbutrin] Allergy Unknown Verified 08/21/20 19:53 Review of Systems ROS Statement: Those systems with pertinent positive or pertinent negative responses have been documented in the HPI. ROS Other: All systems not noted in ROS Statement are negative. Constitutional: Denies: fever, chills Respiratory: Reports: as per HPI, dyspnea. Denies: cough, wheezes Cardiovascular: Reports: as per HPI, chest pain, palpitations, dyspnea on e xertion, orthopnea, edema. Denies: syncope Gastrointestinal: Reports: nausea. Denies: abdominal pain, vomiting, diarrhea Genitourinary: Denies: dysuria, hematuria Musculoskeletal: Denies: back pain Skin: Denies: rash Neurological: Denies: headache, weakness, numbness EKG Findings - EKG Results: EKG: sinus rhythm (With Jamilah cc) EKG shows: tachycardia (Rate 156) Past Medical History Past Medical History: COPD Additional Past Medical History / Comment(s): Recent weight loss, back pain, irreg heart rate, History of Any Multi-Drug Resistant Organisms: None Reported Past Surgical History: Tonsillectomy Additional Past Surgical History / Comment(s): Gastric bypass for an ulcer, cataract surgery both eyes. Past Anesthesia/Blood Transfusion Reactions: No Reported Reaction Past Psychological History: Depression Smoking Status: Current every day smoker Past Alcohol Use History: Rare Past Drug Use History: None Reported - Past Family History Mother Family Medical History: No Reported History Father Additional Family Medical History / Comment(s): Brain aneurysm General Exam Limitations: no limitations General appearance: alert, in no apparent distress, cachectic Head exam: Present: atraumatic, normocephalic Eye exam: Present: normal appearance. Absent: scleral icterus, conjunctival injection ENT exam: Present: normal oropharynx Neck exam: Present: normal inspection Respiratory exam: Present: wheezes. Absent: respiratory distress, rales, rhonchi, stridor, chest wall tenderness, accessory muscle use, decreased breath sounds Cardiovascular Exam: Present: normal rhythm, tachycardia, systolic murmur. Abs ent: diastolic murmur, rubs, gallop GI/Abdominal exam: Present: soft. Absent: distended, tenderness, guarding, rebound, rigid, mass Extremities exam: Present: normal inspection, normal capillary refill, pedal edema (Mild edema at the ankles bilaterally). Absent: calf tenderness Back exam: Present: normal inspection. Absent: CVA tenderness (R), CVA tenderness (L) Neurological exam: Present: alert Skin exam: Present: warm, dry, intact, normal color. Absent: rash Course Vital Signs 08/21/20 08/21/20 08/21/20 17:31 17:57 18:00 Temperature 98 F Pulse Rate 69 138 H Pulse Rate [ 144 H Pulse Oximetery ] Respiratory 18 20 Rate Blood Pressure 129/62 O2 Sat by Pulse 90 L 94 L Oximetry 08/21/20 08/21/20 20:00 21:48 Temperature Pulse Rate 140 H 125 H Pulse Rate [ Pulse Oximetery ] Respiratory 18 24 Rate Blood Pressure 112/84 O2 Sat by Pulse 91 L Oximetry Disposition Referrals: [facility],Clinic [Primary Care Provider] - 1-2 days
[2020-08-21] MEDS ORDERED: DILTIAZEM 125 MG in SODIUM CHLORIDE 0.9% 100 ML IV SCH (18:00)
[2020-08-21 18:34] LABS: Anisocytosis Slight; Basophils # (A) 0.1 k/uL (0-0.2); Basophils % (A) 1 %; Eosinophils % (A) 0 %; HCT 52.2 % (34.0-46.0); HGB 16.2 gm/dL (11.4-16.0); Hypochromasia Slight; Lymphocytes # (A) 0.7 k/uL (1.0-4.8); Lymphocytes % (A) 7 %; MCH 27.8 pg (25.0-35.0); MCV 89.6 fL (80.0-100.0); Mean Platelet Volume 8.1; Monocytes # (A) 0.6 k/uL (0-1.0); Monocytes % (A) 7 %; Neutrophils # (A) 7.3 k/uL (1.3-7.7); Neutrophils % (A) 83 %; Platelet Count 281 k/uL (150-450); RBC 5.83 m/uL (3.80-5.40); RDW 18.9 % (11.5-15.5); WBC 8.9 k/uL (3.8-10.6)
[2020-08-21 18:44] LABS: Albumin 3.9 g/dL (3.5-5.0); Calcium 10.1 mg/dL (8.4-10.2); Magnesium 1.5 mg/dL (1.6-2.3); Potassium 4.1 mmol/L (3.5-5.1); Total Bilirubin 0.5 mg/dL (0.2-1.3); Total Protein 6.7 g/dL (6.3-8.2)
--- NOTE | 2020-08-21 18:45 | XR ---
EXAMINATION TYPE: XR chest 1V portable DATE OF EXAM: 08/21/2020 Comparison: 07/03/2020 Clinical History: 70-year-old female dysrhythmia Findings: Heart is mildly moderately enlarged. Interstitial and vascular prominence. Trace left pleural effusio n. Hyperinflation. Impression: COPD with cardiomegaly and interstitial changes. Possible trace left effusion. Consider superimposed CHF with pulmonary vascular congestion.
[2020-08-21 18:52] LABS: INR 1.1 (<1.2); Prothrombin Time 11.6 sec (9.0-12.0)
[2020-08-21 18:57] LABS: Partial Thromboplastin Time 21.5 sec (22.0-30.0)
[2020-08-21] MEDS ORDERED: MORPHINE SULFATE 2 MG/ML SYRINGE IV STA (19:42)
[2020-08-21] MEDS ORDERED: MAGNESIUM SULFATE-D5W PMX 1 GM in DEXTROSE/WATER 1 100ML.BAG IVPB ONE (19:42)
[2020-08-21] MEDS ORDERED: ASPIRIN 81 MG PO STA (19:42)
[2020-08-21] MEDS ORDERED: NITROGLYCERIN OINT 1 INCH/GM PACKET TOPICAL STA (20:19)
[2020-08-21] MEDS ORDERED: FUROSEMIDE 10 MG/ML 2 ML VIAL IV STA (20:19)
[2020-08-21] MEDS ORDERED: CYCLOBENZAPRINE 5 MG TAB PO PRN (20:52)
[2020-08-21] MEDS ORDERED: FAMOTIDINE 20 MG TAB PO PRN (20:52)
[2020-08-21] MEDS ORDERED: traMADol 50 MG TAB PO PRN (20:52)
[2020-08-21] MEDS ORDERED: PANTOPRAZOLE 40 MG TABLET PO PRN (20:52)
[2020-08-21] MEDS ORDERED: ASPIRIN-ACET-CAFF 250-250-65MG 1 EACH TAB PO PRN (20:52)
[2020-08-21] MEDS ORDERED: POTASSIUM CHLORIDE ER 10 MEQ TAB.ER.PRT PO PRN (20:52)
[2020-08-21] MEDS ORDERED: FLUTICASONE 50MCG/SPRAY NASAL 16GM EA NOSTRIL PRN (20:52)
[2020-08-21] MEDS ORDERED: ALBUTEROL NEBULIZED 2.5 MG/3 ML INHALATION PRN (20:52)
[2020-08-21] MEDS ORDERED: hydrOXYzine pamoate 25 MG CAP PO PRN (20:52)
[2020-08-21] MEDS ORDERED: LIDOCAINE 5% PATCH TOPICAL PRN (20:52)
[2020-08-21] MEDS ORDERED: ENOXAPARIN 30 MG/0.3 ML SYRINGE SQ SCH (21:00)
[2020-08-21] MEDS: VERAPAMIL 40 MG TAB PO SCH ×2 (21:57→21:58)
[2020-08-21] MEDS: METOPROLOL TARTRATE 25 MG TAB PO SCH (21:58)
[2020-08-21] MEDS: MIRTAZAPINE 45 MG TABLET PO SCH (23:17)
[2020-08-22] MEDS: LEVOTHYROXINE 25 MCG TAB PO SCH (06:13)
[2020-08-22 06:53] LABS: Albumin 3.4 g/dL (3.5-5.0); Calcium 9.1 mg/dL (8.4-10.2); Magnesium 1.8 mg/dL (1.6-2.3); Total Bilirubin 0.6 mg/dL (0.2-1.3); Total Protein 6.2 g/dL (6.3-8.2)
[2020-08-22 07:00] LABS: Potassium 4.5 mmol/L (3.5-5.1)
[2020-08-22] MEDS: IPRATROPIUM 0.5 MG/2.5 ML NEBU INHALATION SCH ×4 (08:08→19:54)
[2020-08-22] MEDS: SYMBICORT 160-4.5 MCG INHALER INHALATION SCH ×2 (08:08→20:18)
--- NOTE | 2020-08-22 08:59 | P.CRDCN ---
History of Present Illness History of present illness: HISTORY OF PRESENTING ILLNESS This is a pleasant 70-year-old female past medical history significant for COPD, hypertension, nicotine dependence. She follows in the office with Dr. Andrews. We have been asked to see in consultation for chest pain. Patient is seen and examined in the emergency department. Patient states she started having midsternal chest pain yesterday. Pain is nonradiating. However she does endorse some back pain. She is unable to tell me the pain isn't exertional. She does not describe anything that makes the pain better or worse. She does endorse lower extremity edema. Associated symptoms include dizziness, shortness of breath, slight non-productive cough. She denies lightheadedness or syncope or palpitations. Patient smokes daily, when asked how much she states "enough". She denies orthopnea or PND symptoms. She is lying flat on her side, appears short of breath. Denies history of Diabetes, Stroke, [place], or coronary artery disease. She denies family history of heart disease. She denies alcohol use. She denies any weight loss. Current home medications include Excedrin when necessary, levothyroxine 25 g daily, potassium chloride 10 mEq when necessary, spur reviewed the daily, citrate to seen 10 mg daily, omeprazole 20 mg daily, verapamil 40 mg twice a day, metoprolol titrate 25 mg twice a day, Symbicort twice a day, albuterol when necessary, Flonase when necessary. On admission patient's blood pressure 120/62, 90% on room air, requiring BiPAP overnight, HR in the 140s, afebrile DIAGNOSTICS EKG reveals sinus tachycardia with PACs, HR 132, right axis deviation, no significant ST-T wave abnormalities Prior EKG in the office in 2019 sinus tachycardia HR 102, left ventricular hypertrophy Most recent Lexiscan 04/12/2019 in the office - Negative stress induced ischemia Most recent echocardiogram 04/12/2019 in the office- 60%, mild/regurgitation, mild tricuspid regurgitation, small circumflex in potential pericardial effusion 08/07/2020- Thoracic and Lumbar Spine MRI- ostial porotic compression deformity. L4,. Following acute chronic L1, superior aspect of L5 appears chronic. Degenerative disc disease Telemetry tracings indicate sinus tachycardia, atrial tachycardia Chest xray hyperinflation consistent with COPD with cardiomegaly interstitial changes. Trace left pleural effusion Laboratory reviewed, WBC 8.9, hemoglobin 16.2, platelets 281, sodium 142, potassium 4.5, serum creatinine 0.91, BUN/creatinine 23, magnesium 1.5 (replaced), repeat 1.8, Troponin trend 0.14-->0.14-->0.18, Pro-BNP 10,000, TSH within normal limits, Covid-19 negative, total protein 6.2, albumin 3.4 REVIEW OF SYSTEMS At the time of my exam: CONSTITUTIONAL: Denies fever or chills. CARDIOVASCULAR: + chest pain,+ shortness of breath, orthopnea, Denies PND or palpitations. RESPIRATORY: + cough. GASTROINTESTINAL: Denies abdominal pain, diarrhea, constipation, nausea or vomiting. MUSCULOSKELETAL: +back pain Denies myalgias. NEUROLOGIC: Denies numbness, tingling, headacbe or weakness. ENDOCRINE: Denies fatigue, weight change, polydipsia or polyurina. GENITOURINARY: Denies burning, hematuria or urgency with micturation. HEMATOLOGIC: Denies history of anemia or bleeding. PHYSICAL EXAMINATION Blood pressure 140/89 heart rate 121 afebrile and maintaining oxygen saturation 92% on 4 L nasal cannula CONSTITUTIONAL: Appears short of breath, frail. HEENT: Head is normocephalic. Pupils are equal, round. Sclerae anicteric. Mucous membranes of the mouth are moist. +JVD. No carotid bruit. CHEST EXAMINATION: Lungs with poor air exchange bilaterally. No chest wall tenderness is noted on palpation or with deep breathing. HEART EXAMINATION: Regular, tacyhcardic rate and rhythm. S1, S2 heard. ABDOMEN: Soft, nontender. Positive bowel sounds. EXTREMITIES: 2+ peripheral pulses, mild bilateral non-pitting lower extremity edema and no calf tenderness. SKIN: intact NEUROLOGIC EXAMINATION: Patient is awake, alert and oriented x3. ASSESSMENT Chest pain, atypical, no EKG evidence of ischemia Shortness of breath, with history of COPD, elevation of her proBNP 10,000. Possibly an element of heart failure Elevated troponin- possibly related to patient's COPD Sinus tachycardia COPD History of Hypertension Chronic Nicotine dependence Hypomagnesemia - replaced PLAN Obtain 2D echocardiogram and doppler study to assess cardiac structure and function. Start heparin drip Start statin, continue aspirin Continue Diuresis- Lasix 20mg IV BID Continue metoprolol tartrate 25mg BID and Verapamil 40mg BID Recommend pulmonary consult I/Os, daily weights Monitor renal function and electrolytes Smoking cessation discussed and highly recommended. Further recommendations to follow pending clinical course Nurse Practitioner note has been reviewed, I agree with a documented findings and plan of care. Patient was seen and examined. Past Medical History Past Medical History: COPD Additional Past Medical History / Comment(s): Recent weight loss, back pain, irreg heart rate, History of Any Multi-Drug Resistant Organisms: None Reported Past Surgical History: Tonsillectomy Additional Past Surgical History / Comment(s): Gastric bypass for an ulcer, cataract surgery both eyes. Past Anesthesia/Blood Transfusion Reactions: No Reported Reaction Past Psychological History: Depression Smoking Status: Current every day smoker Past Alcohol Use History: Rare Past Drug Use History: None Reported - Past Family History Mother Family Medical History: No Reported History Father Additional Family Medical History / Comment(s): Brain aneurysm Medications and Allergies Home Medications Medication Instructions Recorded Confirmed Type Albuterol Inhaler [Ventolin Hfa 1 puff INHALATION RT-QID PRN 12/27/19 08/21/20 History Inhaler] Famotidine [Pepcid] 20 mg PO BID PRN 12/27/19 08/21/20 History Metoprolol Tartrate [Lopressor] 25 mg PO BID 12/27/19 08/21/20 History Mirtazapine 45 mg PO HS 12/27/19 08/21/20 History Omeprazole 20 mg PO DAILY PRN 12/27/19 08/21/20 History Verapamil [Isoptin] 40 mg PO BID 12/27/19 08/21/20 History hydrOXYzine pamoate [hydrOXYzine 25 mg PO BID PRN 12/27/19 08/21/20 History PAMOATE] traMADol HCL 50 mg PO BID PRN 12/27/19 08/21/20 History Budesonide/Formoterol Fumarate 2 puff INHALATION RT-BID 07/03/20 08/21/20 History [Symbicort 160-4.5 Mcg Inhaler] Cetirizine HCl 10 mg PO DAILY PRN 07/03/20 08/21/20 History Fluticasone Nasal [place] [Flonase 1 spray EA NOSTRIL BID PRN 07/03/20 08/21/20 History Nasal [place]] Tiotropium 2.5 Mcg/Puff [Spiriva 2 puff INHALATION RT-DAILY 07/03/20 08/21/20 History Respimat 2.5 Mcg] [id number] 1 tab PO Q4HR PRN 08/21/20 08/21/20 History [Excedrin] Calcium Carbonate/Vitamin D3 3 tab PO DAILY 08/21/20 08/21/20 History [Calcium 500 mg-Vit D3 5 mcg (200 Unit)] Cyclobenzaprine [Flexeril] 5 mg PO BID PRN 08/21/20 08/21/20 History Lactose-Reduced Food [Ensure 1 dose PO TID 08/21/20 08/21/20 History Original] Levothyroxine Sodium 25 mcg PO DAILY 08/21/20 08/21/20 History Lidocaine 5% Patch [Lidoderm] 1 patch TOPICAL DAILY PRN 08/21/20 08/21/20 History Potassium Chloride ER [K-Dur 10] 10 meq PO DIRECTED PRN 08/21/20 08/21/20 History Allergies Allergy/AdvReac Type Severity Reaction Status Date / Time alendronate sodium Allergy Rash/Hives Verified 08/21/20 19:53 bupropion [From Wellbutrin] Allergy Unknown Verified 08/21/20 19:53 Physical Exam Vitals: Vital Signs Temp Pulse Pulse Resp BP Pulse Ox 08/22/20 08:18 136 H 08/22/20 08:12 140 H 08/22/20 06:21 92 L 08/22/20 06:00 121 H 14 140/89 08/22/20 04:00 98 F 84 14 122/60 08/22/20 02:00 89 20 08/21/20 23:18 66 22 125/88 08/21/20 21:48 125 H 24 112/84 91 L 08/21/20 20:00 140 H 18 08/21/20 18:00 138 H 20 94 L 08/21/20 17:57 144 H 08/21/20 17:31 98 F 69 18 129/62 90 L Intake and Output 08/21/20 08/22/20 08/22/20 22:59 06:59 14:59 Other: Weight 33.112 kg Results 08/21/20 17:57 08/22/20 06:14 Cardiac Enzymes 08/21/20 08/21/20 08/21/20 Range/Units 17:57 17:57 21:38 AST 36 (14-36) U/L Troponin I 0.144 H* 0.147 H* (0.000-0.034) ng/mL 08/22/20 08/22/20 Range/Units 00:57 06:14 AST 35 (14-36) U/L Troponin I 0.182 H* (0.000-0.034) ng/mL Coagulation 08/21/20 Range/Units 17:57 PT 11.6 (9.0-12.0) sec APTT 21.5 L (22.0-30.0) sec CBC 08/21/20 Range/Units 17:57 WBC 8.9 (3.8-10.6) k/uL RBC 5.83 H (3.80-5.40) m/uL Hgb 16.2 H (11.4-16.0) gm/dL Hct 52.2 H (34.0-46.0) % Plt Count 281 (150-450) k/uL Comprehensive Metabolic Panel 08/21/20 08/22/20 Range/Units 17:57 06:14 Sodium 142 142 (137-145) mmol/L Potassium 4.1 4.5 (3.5-5.1) mmol/L Chloride 107 109 H (98-107) mmol/L Carbon Dioxide 25 31 H (22-30) mmol/L BUN 26 H 23 H (7-17) mg/dL Creatinine 0.95 0.91 (0.52-1.04) mg/dL Glucose 138 H 98 (74-99) mg/dL Calcium 10.1 9.1 (8.4-10.2) mg/dL AST 36 35 (14-36) U/L ALT 21 19 (4-34) U/L Alkaline Phosphatase 196 H 157 H (38-126) U/L Total Protein 6.7 6.2 L (6.3-8.2) g/dL Albumin 3.9 3.4 L (3.5-5.0) g/dL Current Medications Generic Name Dose Route Start Last Admin Trade Name Freq PRN Reason Stop Dose Admin Acetaminophen/Aspirin/Caffeine 1 each 08/21/20 20:52 [id number] 1 Each Tab PO Q4HR PRN Pain Albuterol Sulfate 1 mg 08/21/20 20:52 Albuterol Nebulized 2.5 Mg/3 Ml INHALATION RT-QID PRN Shortness Of Breath Or Wheezing Aspirin 81 mg 08/23/20 09:00 Aspirin 81 Mg PO DAILY [facility] Atorvastatin Calcium 80 mg 08/22/20 09:00 Atorvastatin 80 Mg Tab PO DAILY [facility] Budesonide/Formoterol Fumarate 2 puff 08/22/20 08:00 08/22/20 08:08 Symbicort 160-4.5 Mcg Inhaler INHALATION 2 puff RT-BID [facility] Administration Cyclobenzaprine HCl 5 mg 08/21/20 20:52 Cyclobenzaprine 5 Mg Tab PO BID PRN Muscle Spasm Famotidine 20 mg 08/21/20 20:52 Famotidine 20 Mg Tab PO BID PRN Heartburn Fluticasone Propionate 1 spray 08/21/20 20:52 Fluticasone 50mcg/[place] Nasal 16gm EA NOSTRIL BID PRN Allergy Symptoms Furosemide 20 mg 08/22/20 09:00 Furosemide 10 Mg/Ml 2 Ml Vial IV Q12HR [facility] Heparin Sodium (Porcine) 0 unit 08/22/20 08:15 Heparin Sodium 1,000 Un/Ml (10ml Vl) IV PER PROTOCOL PRN Low PTT Protocol Hydroxyzine Pamoate 25 mg 08/21/20 20:52 Hydroxyzine Pamoate 25 Mg Cap PO BID PRN ANXIETY/SLEEP Heparin Sodium/Sodium Chloride 250 mls @ 3.973 mls/hr 08/22/20 08:15 25,000 unit/ Sodium Chloride IV .Q24H [facility] Protocol 12 UNITS/KG/HR Ipratropium [place] 0.5 mg 08/22/20 08:00 08/22/20 08:08 Ipratropium 0.5 Mg/2.5 Ml Nebu INHALATION 0.5 mg RT-QID [facility] Administration Levothyroxine Sodium 25 mcg 08/22/20 06:30 08/22/20 06:13 Levothyroxine 25 Mcg Tab PO 25 mcg DAILY@0630 [facility] Administration Lidocaine 1 patch 08/21/20 20:52 Lidocaine 5% Patch TOPICAL DAILY PRN Pain Metoprolol Tartrate 25 mg 08/21/20 21:30 08/21/20 21:58 Metoprolol Tartrate 25 Mg Tab PO 25 mg BID [facility] Administration Mirtazapine 45 mg 08/21/20 21:30 08/21/20 23:17 Mirtazapine 45 Mg Tablet PO 45 mg HS [facility] Administration Nitroglycerin 0.5 inch 08/22/20 09:00 Nitroglycerin Oint 1 Inch/Gm Packet TOPICAL QID [facility] Pantoprazole Sodium 40 mg 08/21/20 20:52 Pantoprazole 40 Mg Tablet PO DAILY PRN GERD Potassium Chloride 10 meq 08/21/20 20:52 Potassium Chloride Er 10 Meq Tab.Er.Prt PO DAILY PRN when taking lasix Sodium Chloride 10 ml 08/21/20 21:00 08/21/20 21:53 Sodium Chloride 0.9% Flush 10 Ml Syringe IV 10 ml BID [facility] Administration Tramadol HCl 50 mg 08/21/20 20:52 Tramadol 50 Mg Tab PO BID PRN Pain Verapamil HCl 40 mg 08/21/20 21:30 08/21/20 21:58 Verapamil 40 Mg Tab PO Not Given BID [facility] Intake and Output 08/21/20 08/22/20 08/22/20 22:59 06:59 14:59 Other: Weight 33.112 kg 08/21/20 17:57 08/22/20 06:14
[2020-08-22 09:37] LABS: Anisocytosis Slight; Basophils # (A) 0.1 k/uL (0-0.2); Basophils % (A) 1 %; Eosinophils # (A) 0.1 k/uL (0-0.7); Eosinophils % (A) 1 %; HCT 54.3 % (34.0-46.0); HGB 15.7 gm/dL (11.4-16.0); Hypochromasia Marked; Lymphocytes # (A) 0.5 k/uL (1.0-4.8); Lymphocytes % (A) 7 %; MCHC 28.8 g/dL (31.0-37.0); MCV 93.7 fL (80.0-100.0); Mean Platelet Volume 8.1; Monocytes # (A) 0.4 k/uL (0-1.0); Monocytes % (A) 5 %; Neutrophils % (A) 83 %; Platelet Count 243 k/uL (150-450); RDW 18.6 % (11.5-15.5); WBC 7.2 k/uL (3.8-10.6)
[2020-08-22] MEDS: FUROSEMIDE 10 MG/ML 2 ML VIAL IV SCH ×2 (09:47→20:29)
[2020-08-22] MEDS: NITROGLYCERIN OINT 1 INCH/GM PACKET TOPICAL SCH ×4 (09:48→20:30)
[2020-08-22 09:49] LABS: Partial Thromboplastin Time 23.7 sec (22.0-30.0)
[2020-08-22] MEDS: METOPROLOL TARTRATE 25 MG TAB PO SCH ×2 (09:49→20:29)
[2020-08-22] MEDS: VERAPAMIL 40 MG TAB PO SCH ×2 (09:50→21:04)
[2020-08-22] MEDS: ATORVASTATIN 80 MG TAB PO SCH (09:50)
[2020-08-22] MEDS: HEPARIN SOD,PORK IN 0.45% NACL 25,000 UNIT in 0.45% NACL 1 250ML.BAG IV SCH (09:50)
[2020-08-22] MEDS: methylPREDNISolone SOD SUCCI 40 MG/ML 1 ML VIAL IV SCH ×2 (12:35→17:59)
--- NOTE | 2020-08-22 12:51 | ECHOF ---
Referral Reason:Heart Failure MEASUREMENTS -------- HEIGHT: 165.1 cm WEIGHT: 33.1 kg BP: RVIDd: 3.0 cm (< 3.3) IVSd: 1.1 cm (0.6 - 1.1) LVIDd: 3.3 cm (3.9 - 5.3) LVPWd: 1.2 cm (0.6 - 1.1) IVSs: 1.2 cm LVIDs: 2.8 cm LVPWs: 1.4 cm LA Diam: 4.2 cm (2.7 - 3.8) Ao Diam: 2.3 cm (2.0 - 3.7) AV Cusp: 1.6 cm (1.5 - 2.6) MV EXCURSION: 12.690 mm (> 18.000) MV EF SLOPE: 51 mm/s (70 - 150) EPSS: 0.3 cm RAP: 10.00 mmHg RVSP: 49.75 mmHg FINDINGS -------- Atrial fibrillation. This was a technically good study. Overall left ventricular systolic function is low-normal with, an EF between 50 - 55 %. The right ventricle is normal in size. The left atrium is mildly dilated. LA is midly dilated 29-33ml/m2. The right atrial size is normal. There is mild aortic valve sclerosis. There is no evidence of aortic regurgitation. Mild mitral regurgitation is present. Mild tricuspid regurgitation present. There is moderate pulmonary hypertension. The right ventric ular systolic pressure, as measured by Doppler, is 49.75mmHg. Trace/mild (physiologic) pulmonic regurgitation. The aortic root size is normal. There is a small, generalized pericardial effusion present. Small Pleural Effusion. CONCLUSIONS -------- 1. Overall left ventricular systolic function is low-normal with, an EF between 50 - 55 %. 2. The right ventricle is normal in size. 3. The left atrium is mildly dilated. 4. The right atrial size is normal. 5. There is mild aortic valve sclerosis. 6. Mild mitral regurgitation is present. 7. Mild tricuspid regurgitation present. 8. There is moderate pulmonary hypertension. 9. The right ventricular systolic pressure, as measured by Doppler, is 49.75mmHg. 10. Trace/mild (physiologic) pulmonic regurgitation. 11. The aortic root size is normal. 12. There is a small, generalized pericardial effusion present. 13. Small Pleural Effusion. PIPED [employer]TON[employer] MACHINE OPERATOR: Parul Lubin RDCS
--- NOTE | 2020-08-22 13:09 | CT ---
CT CHEST FOR PULMONARY EMBOLISM. EXAMINATION TYPE: CT chest angio for PE DATE OF EXAM: 08/22/2020 INDICATION: difficulty breathing, elevated dimer CT DLP: 155 mGycm, Automated exposure control for dose reduction was used. CONTRAST: Patient injected with 80 mL of Isovue 370. COMPARISON: 07/04/2020 TECHNIQUE: CT of the chest is performed on a spiral scan at 2 mm thick sections. Study is performed with intravenous contrast timed for evaluation for pulmonary embolism. This will limit additional po rtions of the evaluation. 3-D MIP images reconstructed by the technologist are reviewed on the compu ter in the coronal and sagittal planes. FINDINGS: No persistent filling defects are evident to suggest an acute pulmonary embolism. No mediastinal or hilar adenopathy enlarged by CT criteria is evident. The ascending aorta diameter at the level of the main pulmonary artery is 3.0 cm. The main pulmonary artery diameter at the bifur cation is 3.1 cm. Minimal bilateral pleural effusions are present. There is some right apical thickening which appears stable. Thickening is along the right major fissure which is nonspecific. This is present previously. Some pleural-based thickening adjacent to the major fissure within the right midlung periphery was p resent previously. There is a 1.2 cm rounded area within the posterior left lung base could be some rounded atelectasis or infiltrate. Mass is not excluded. This is an interval finding. Follow-up is recommended. Limited CT section through the upper abdomen are unremarkable. IMPRESSIONS: 1. No acute pulmonary embolism. 2. New 1.2 cm density posterior left lung base adjacent to the pleural margin. This is nonspecific. M ass, pneumonia, round atelectasis could be considered. Follow-up is recommended. 3. Additional stable appearing lung findings discussed above
[2020-08-22] MEDS ORDERED: FAMOTIDINE 20 MG TAB PO PRN (13:39)
--- NOTE | 2020-08-22 14:41 | P.CNPUL ---
History of Present Illness Consult date: 08/22/20 Reason for consult: dyspnea, chest pain Chief complaint: Shortness of breath, intermittent chest pains History of present illness: This is a 70-year-old white female patient with past medical history of COPD, not on home oxygen usually, chronic and ongoing history of smoking, patient carries [id number] smoking history, hypertension, chronic dysphagia, malnutrition, depression. She follows with Dr. Levine in the pulmonary clinic. Her outpatient PFT showed FEV1 of 0.67 L or 20% of predicted, FEV1/FVC is 54%, consistent with stage IV COPD. She is being monitored on an outpatient basis in regards to nodular changes in her lungs bilaterally especially in the apices of both lungs mostly in the right posterior aspect of the right lung. Her most recent CT of the chest with IV contrast was completed on 07/04/2020 showing no acute pulmonary embolism, mild right middle lobe and lingular bronchiectasis, tiny pulmonary nodules and to a lesser degree at the right base, possibly related to chronic or recurrent infection. There was biapical scarring in the right lung greater than left, which was unchanged compared to her previous computed tomography scan from 10/20/2019. The patient was not a candidate for any intervention or for any surgery or a CT-guided needle biopsy considering her severe COPD and overall clinical status. Patient has had no hemoptysis, no fever, she is extremely frail and underweight, her BMI is only 12.1 kg/m. Patient continues to smoke despite her poor lung function. On 08/21/2020 patient presents emergency department for evaluation of intermittent chest pain, shortness of breath, not feeling well. She states her and her sister had not been feeling well for last several days and she was having increased difficulty breathing. Denies any fever or chills, only occasional cough, no hemoptysis, she does report chest discomfort in the left side of her chest, which is achy and intermittent in nature. Chest x-ray shows COPD with cardiomegaly, and interstitial changes, possible trace left pleural effusion, with consideration for superimposed CHF and pulmonary vascular con gestion. EKG showed sinus tachycardia with PACs, and nonspecific ST abnormality. Patient did have troponin elevation of 0.147, and 0.182, and cardiology consultation was requested and patient was seen by cardiology and placed on heparin infusion. She was tested for COVID-19 and was negative, she states she has completed her Covid vaccination. Her proBNP was elevated at 10,000, the patient has been started on IV diuretics by cardiology, she does report some mild swelling in her lower extremities, and there is positive JVD on physical exam. Her white blood cell count is 8.9, hemoglobin is 16.2, electrolytes and renal profile were unremarkable. Magnesium level is 1.5, alkaline phosphatase is 196, AST and ALT were within normal limits, TSH was within normal limits. Doing our evaluation patient is still being in bed on selective care unit, she is currently in the emergency department, she is awake and alert, appears to be in no acute distress, she is currently on 3 L of oxygen pulse ox is 92%, however she is still tachycardic, and she is and what appears to be sinus tachycardia, blood pressure stable, she is afebrile. Review of Systems All systems: negative Constitutional: Denies chills, Denies fever Eyes: denies blurred vision, denies pain Ears, nose, mouth and throat: Denies headache, Denies sore throat Cardiovascular: Denies chest pain, Denies shortness of breath Respiratory: Reports dyspnea, Denies cough Gastrointestinal: Denies abdominal pain, Denies diarrhea, Denies nausea, Denies vomiting Genitourinary: Denies dysuria, Denies hematuria Musculoskeletal: Denies myalgias Integumentary: Denies pruritus, Denies rash Neurological: Denies numbness, Denies weakness Psychiatric: Denies anxiety, Denies depression Endocrine: Denies fatigue, Denies weight change Past Medical History Past Medical History: COPD Additional Past Medical History / Comment(s): back pain, irreg heart rate, History of Any Multi-Drug Resistant Organisms: None Reported Past Surgical History: Tonsillectomy Additional Past Surgical History / Comment(s): Gastric bypass for an ulcer, cataract surgery both eyes. Past Anesthesia/Blood Transfusion Reactions: No Reported Reaction Past Psychological History: Depression Smoking Status: Current every day smoker Past Alcohol Use History: Rare Additional Past Alcohol Use History / Comment(s): Smokes less than a pack per day. Has recently smoked more in the last 2 weeks. Past Drug Use History: None Reported - Past Family History Mother Family Medical History: No Reported History Father Additional Family Medical History / Comment(s): Brain aneurysm Medications and Allergies Home Medications Medication Instructions Recorded Confirmed Type Albuterol Inhaler [Ventolin Hfa 1 puff INHALATION RT-QID PRN 12/27/19 08/21/20 History Inhaler] Famotidine [Pepcid] 20 mg PO BID PRN 12/27/19 08/21/20 History Metoprolol Tartrate [Lopressor] 25 mg PO BID 12/27/19 08/21/20 History Mirtazapine 45 mg PO HS 12/27/19 08/21/20 History Omeprazole 20 mg PO DAILY PRN 12/27/19 08/21/20 History Verapamil [Isoptin] 40 mg PO BID 12/27/19 08/21/20 History hydrOXYzine pamoate [hydrOXYzine 25 mg PO BID PRN 12/27/19 08/21/20 History PAMOATE] traMADol HCL 50 mg PO BID PRN 12/27/19 08/21/20 History Budesonide/Formoterol Fumarate 2 puff INHALATION RT-BID 07/03/20 08/21/20 His tory [Symbicort 160-4.5 Mcg Inhaler] Cetirizine HCl 10 mg PO DAILY PRN 07/03/20 08/21/20 History Fluticasone Nasal [place] [Flonase 1 spray EA NOSTRIL BID PRN 07/03/20 08/21/20 History Nasal [place]] Tiotropium 2.5 Mcg/Puff [Spiriva 2 puff INHALATION RT-DAILY 07/03/20 08/21/20 History Respimat 2.5 Mcg] [id number] 1 tab PO Q4HR PRN 08/21/20 08/21/20 History [Excedrin] Calcium Carbonate/Vitamin D3 3 tab PO DAILY 08/21/20 08/21/20 History [Calcium 500 mg-Vit D3 5 mcg (200 Unit)] Cyclobenzaprine [Flexeril] 5 mg PO BID PRN 08/21/20 08/21/20 History Lactose-Reduced Food [Ensure 1 dose PO TID 08/21/20 08/21/20 History Original] Levothyroxine Sodium 25 mcg PO DAILY 08/21/20 08/21/20 History Lidocaine 5% Patch [Lidoderm] 1 patch TOPICAL DAILY PRN 08/21/20 08/21/20 History Potassium Chloride ER [K-Dur 10] 10 meq PO DIRECTED PRN 08/21/20 08/21/20 History Allergies Allergy/AdvReac Type Severity Reaction Status Date / Time alendronate sodium Allergy Rash/Hives Verified 08/21/20 19:53 bupropion [From Wellbutrin] Allergy Unknown Verified 08/21/20 19:53 Physical Exam Vitals: Vital Signs Temp Pulse Pulse Resp BP BP Pulse Ox 08/22/20 13:00 97.7 F 87 20 146/80 95 08/22/20 12:41 98 F 102 H 20 144/88 98 08/22/20 12:03 97.9 F 101 H 16 112/91 95 08/22/20 08:18 136 H 08/22/20 08:12 140 H 08/22/20 06:21 92 L 08/22/20 06:00 121 H 14 140/89 08/22/20 04:00 98 F 84 14 122/60 08/22/20 02:00 89 20 08/21/20 23:18 66 22 125/88 08/21/20 21:48 125 H 24 112/84 91 L 08/21/20 20:00 140 H 18 08/21/20 18:00 138 H 20 94 L 08/21/20 17:57 144 H 08/21/20 17:31 98 F 69 18 129/62 90 L Intake and Output 08/21/20 08/22/20 08/22/20 22:59 06:59 14:59 Other: Weight 33.112 kg 33.112 kg GENERAL EXAM: Alert, very frail looking, 70-year-old white female on 3 L of ox ygen, resting on the gurney in the emergency department, with a pulse ox of 92%, comfortable in no apparent distress. HEAD: Normocephalic/atraumatic. EYES: Normal reaction of pupils, equal size. Conjunctiva pink, sclera white. NOSE: Clear with pink turbinates. THROAT: No erythema or exudates. NECK: No masses, +JVD, no thyroid enlargement, no adenopathy. CHEST: No chest wall deformity. Symmetrical expansion. LUNGS: Equal air entry with no crackles, wheeze, rhonchi or dullness. CVS: Regular rate and rhythm, normal S1 and S2, no gallops, no murmurs, no rubs, patient is currently tachycardic with a heart rate between 120-140 BPM, in sinus mechanism ABDOMEN: Soft, nontender. No hepatosplenomegaly, normal bowel sounds, no guarding or rigidity. EXTREMITIES: No clubbing, mild 1+ lower extremity pretibial edema, no cyanosis, 2+ pulses and upper and lower extremities. MUSCULOSKELETAL: Muscle strength and tone normal. SPINE: No scoliosis or deformity SKIN: No rashes CENTRAL NERVOUS SYSTEM: Alert and oriented -3. No focal deficits, tone is normal in all 4 extremities. PSYCHIATRIC: Alert and oriented -3. Appropriate affect. Intact judgment and insight. Results - Laboratory Findings CBC and BMP: 08/22/20 09:06 08/22/20 06:14 PT/INR, D-dimer PT 11.0 sec (9.0-12.0) 08/22/20 09:06 INR 1.0 (<1.2) 08/22/20 09:06 D-Dimer 1.07 mg/L FEU (<0.60) H 08/22/20 09:06 Abnormal lab findings: Abnormal Labs 08/21/20 08/21/20 08/21/20 17:57 17:57 17:57 RBC 5.83 H Hgb 16.2 H Hct 52.2 H MCHC RDW 18.9 H Lymphocytes # 0.7 L APTT 21.5 L D-Dimer Chloride Carbon Dioxide BUN 26 H Glucose 138 H Magnesium 1.5 L Alkaline Phosphatase 196 H Troponin I Total Protein Albumin 08/21/20 08/21/20 08/22/20 17:57 21:38 00:57 RBC Hgb Hct MCHC RDW Lymphocytes # APTT D-Dimer Chloride Carbon Dioxide BUN Glucose Magnesium Alkaline Phosphatase Troponin I 0.144 H* 0.147 H* 0.182 H* Total Protein Albumin 08/22/20 08/22/20 08/22/20 06:14 09:06 09:06 RBC 5.80 H Hgb Hct 54.3 H MCHC 28.8 L RDW 18.6 H Lymphocytes # 0.5 L APTT D-Dimer 1.07 H Chloride 109 H Carbon Dioxide 31 H BUN 23 H Glucose Magnesium Alkaline Phosphatase 157 H Troponin I Total Protein 6.2 L Albumin 3.4 L - Diagnostic Findings Chest x-ray: report reviewed, image reviewed CT scan - chest: report reviewed, image reviewed Assessment and Plan Plan: Assessment: #1. Intermittent chest pain, atypical, mildly elevated troponins, cardiology is following #2. Acute exacerbation of COPD #3. Acute CHF with diastolic dysfunction, echocardiogram showed EF of 50-55%, mild MR, mild TR, moderate pulmonary hypertension with right-sided pressure of 49.7 mmHg #4. Elevated d-dimer with no CT evidence of pulmonary embolism #5. Severe COPD, with baseline FEV1 of 0.67 L or 28% of predicted consistent with stage IV COPD. Not oxygen or prednisone dependent at baseline #6. [id number] smoking history, and patient continues to smoke #7. Poor nutritional status, patient is underweight, her BMI is 12.1 kg/m #8. Chronic dysphagia #9. Depression #10. Lung nodules that are being followed on an outpatient basis by Dr. Levine #11. Osteoporosis Plan: We'll add IV steroids CT chest did not show evidence of pulmonary embolism There was a new 1.2 cm density in the posterior left lung base, which is nonspecific Chest x-ray echocardiogram have been reviewed Continue bronchodilators, continue steroids, patient is also on diuretics No need for antibiotics right now Rate control medications cardiology Continue to follow and make further recommendations based on the clinical course Patient was strongly encouraged to quit smoking I performed a history & physical examination of the patient and discussed their management with my nurse practitioner, Kristine Teixeira. I reviewed the nurse practitioner's note and agree with the documented findings and plan of care. Lung sounds are positive for diminished breath sounds. The findings and the impression was discussed with the patient. I attest to the documentation by the nurse practitioner. Time with Patient: Greater than 30
--- NOTE | 2020-08-22 14:53 | P.HPIM ---
History of Present Illness 70-year-old the female has seen the her primary care physician for not feeling well and generalized tiredness and weakness in the a chest x-ray was obtained which showed findings consistent with CHF because of which patient was sent to ER. Does have history of COPD continues to smoke thin built with the significant emphysema on the chest x-ray. Patient did admit to increased the shortness of breath. Occasional cough. Patient any significant orthopnea or paroxysmal nocturnal dyspnea although chest x-ray did show some pulmonary vascular congestion and elevated BNP and can't clearly appreciate JVD troponin is minimally elevated to 0.147 0.182 cardiology evaluated the patient and patient was started on IV heparin infusion patient's Covid 19 is negative patient was also started on IV diuretics patient's magnesium level is only 1.5 which will be replaced patient has mildly elevated d-dimer and pulmonology is obtaining a CT angios the chest to rule out any pulmonary embolism. Patient is significantly tachycardic which is sinus tachycardia patient is on hydroxyzine which may be contributing to her tachycardia this will be held. Patient is on verapamil and metoprolol which will be continued. Patient was also apparently complaining of intermittent chest pain Review of Systems REVIEW OF SYSTEMS: CONSTITUTIONAL: As mentioned in HPI HEENT: No recent visual problems or hearing problems. Denied any sore throat. CARDIOVASCULAR: No chest pain, orthopnea, PND, no palpitations, no syncope. PULMONARY: As mentioned in HPI GASTROINTESTINAL: No diarrhea, no nausea, no vomiting, no abdominal pain. NEUROLOGICAL: No headaches, no weakness, no numbness. HEMATOLOGICAL: Denies any bleeding or petechiae. GENITOURINARY: Denies any burning micturition, frequency, or urgency. MUSCULOSKELETAL/RHEUMATOLOGICAL: Denies any joint pain, swelling, or any muscle pain. ENDOCRINE: Denies any polyuria or polydipsia. The rest of the 14-point review of systems is negative. Past Medical History Past Medical History: COPD Additional Past Medical History / Comment(s): back pain, irreg heart rate, History of Any Multi-Drug Resistant Organisms: None Reported Past Surgical History: Tonsillectomy Additional Past Surgical History / Comment(s): Gastric bypass for an ulcer, cataract surgery both eyes. Past Anesthesia/Blood Transfusion Reactions: No Reported Reaction Past Psychological History: Depression Smoking Status: Current every day smoker Past Alcohol Use History: Rare Additional Past Alcohol Use History / Comment(s): Smokes less than a pack per day. Has recently smoked more in the last 2 weeks. Past Drug Use History: None Reported - Past Family History Mother Family Medical History: No Reported History Father Additional Family Medical History / Comment(s): Brain aneurysm Medications and Allergies Home Medications Medication Instructions Recorded Confirmed Type Albuterol Inhaler [Ventolin Hfa 1 puff INHALATION RT-QID PRN 12/27/19 08/21/20 History Inhaler] Famotidine [Pepcid] 20 mg PO BID PRN 12/27/19 08/21/20 History Metoprolol Tartrate [Lopressor] 25 mg PO BID 12/27/19 08/21/20 History Mirtazapine 45 mg PO HS 12/27/19 08/21/20 History Omeprazole 20 mg PO DAILY PRN 12/27/19 08/21/20 History Verapamil [Isoptin] 40 mg PO BID 12/27/19 08/21/20 History hydrOXYzine pamoate [hydrOXYzine 25 mg PO BID PRN 12/27/19 08/21/20 History PAMOATE] traMADol HCL 50 mg PO BID PRN 12/27/19 08/21/20 History Budesonide/Formoterol Fumarate 2 puff INHALATION RT-BID 07/03/20 08/21/20 History [Symbicort 160-4.5 Mcg Inhaler] Cetirizine HCl 10 mg PO DAILY PRN 07/03/20 08/21/20 History Fluticasone Nasal [place] [Flonase 1 spray EA NOSTRIL BID PRN 07/03/20 08/21/20 History Nasal [place]] Tiotropium 2.5 Mcg/Puff [Spiriva 2 puff INHALATION RT-DAILY 07/03/20 08/21/20 History Respimat 2.5 Mcg] [id number]-Xoue-Pjot [id number] 1 tab PO Q4HR PRN 08/21/20 08/21/20 History [Excedrin] Calcium Carbonate/Vitamin D3 3 tab PO DAILY 08/21/20 08/21/20 History [Calcium 500 mg-Vit D3 5 mcg (200 Unit)] Cyclobenzaprine [Flexeril] 5 mg PO BID PRN 08/21/20 08/21/20 History Lactose-Reduced Food [Ensure 1 dose PO TID 08/21/20 08/21/20 History Original] Levothyroxine Sodium 25 mcg PO DAILY 08/21/20 08/21/20 History Lidocaine 5% Patch [Lidoderm] 1 patch TOPICAL DAILY PRN 08/21/20 08/21/20 History Potassium Chloride ER [K-Dur 10] 10 meq PO DIRECTED PRN 08/21/20 08/21/20 History Allergies Allergy/AdvReac Type Severity Reaction Status Date / Time alendronate sodium Allergy Rash/Hives Verified 08/21/20 19:53 bupropion [From Wellbutrin] Allergy Unknown Verified 08/21/20 19:53 Physical Exam Vitals: Vital Signs Temp Pulse Pulse Resp BP BP Pulse Ox 08/22/20 13:00 97.7 F 87 20 146/80 95 08/22/20 12:41 98 F 102 H 20 144/88 98 08/22/20 12:03 97.9 F 101 H 16 112/91 95 08/22/20 08:18 136 H 08/22/20 08:12 140 H 08/22/20 06:21 92 L 08/22/20 06:00 121 H 14 140/89 08/22/20 04:00 98 F 84 14 122/60 08/22/20 02:00 89 20 08/21/20 23:18 66 22 125/88 08/21/20 21:48 125 H 24 112/84 91 L 08/21/20 20:00 140 H 18 08/21/20 18:00 138 H 20 94 L 08/21/20 17:57 144 H 08/21/20 17:31 98 F 69 18 129/62 90 L Intake and Output 08/21/20 08/22/20 08/22/20 22:59 06:59 14:59 Other: Voiding Method Bedside Commode Weight 33.112 kg 33.112 kg PHYSICAL EXAMINATION: GENERAL: The patient is alert and oriented x3, not in any acute distress. Thin built female cachectic is not in respiratory distress on 3 L of oxygen HEENT: Pupils are round and equally reacting to light. EOMI. No scleral icterus. No conjunctival pallor. Normocephalic, atraumatic. No pharyngeal erythema. No thyromegaly. CARDIOVASCULAR: S1 and S2 present. No murmurs, rubs, or gallops. PULMONARY: Decreased air entry did not appreciate any wheeze or crackles ABDOMEN: Soft, nontender, nondistended, normoactive bowel sounds. No palpable organomegaly. MUSCULOSKELETAL: No joint swelling or deformity. EXTREMITIES: No cyanosis, clubbing, does have 1+ pitting pedal edema in bilateral lower extremities NEUROLOGICAL: Gross neurological examination did not reveal any focal deficits. SKIN: No rashes. Results CBC & Chem 7: 08/22/20 09:06 08/22/20 06:14 Labs: Abnormal Lab Results - Last 24 Hours (Table) 08/21/20 08/21/20 08/21/20 Range/Units 17:57 17:57 17:57 RBC 5.83 H (3.80-5.40) m/uL Hgb 16.2 H (11.4-16.0) gm/dL Hct 52.2 H (34.0-46.0) % MCHC (31.0-37.0) g/dL RDW 18.9 H (11.5-15.5) % Lymphocytes # 0.7 L (1.0-4.8) k/uL APTT 21.5 L (22.0-30.0) sec D-Dimer (<0.60) mg/L FEU Chloride (98-107) mmol/L Carbon Dioxide (22-30) mmol/L BUN 26 H (7-17) mg/dL Glucose 138 H (74-99) mg/dL Magnesium 1.5 L (1.6-2.3) mg/dL Alkaline Phosphatase 196 H (38-126) U/L Troponin I (0.000-0.034) ng/mL Total Protein (6.3-8.2) g/dL Albumin (3.5-5.0) g/dL 08/21/20 08/21/20 08/22/20 Range/Units 17:57 21:38 00:57 RBC (3.80-5.40) m/uL Hgb (11.4-16.0) gm/dL Hct (34.0-46.0) % MCHC (31.0-37.0) g/dL RDW (11.5-15.5) % Lymphocytes # (1.0-4.8) k/uL APTT (22.0-30.0) sec D-Dimer (<0.60) mg/L FEU Chloride (98-107) mmol/L Carbon Dioxide (22-30) mmol/L BUN (7-17) mg/dL Glucose (74-99) mg/dL Magnesium (1.6-2.3) mg/dL Alkaline Phosphatase (38-126) U/L Troponin I 0.144 H* 0.147 H* 0.182 H* (0.000-0.034) ng/mL Total Protein (6.3-8.2) g/dL Albumin (3.5-5.0) g/dL 08/22/20 08/22/20 08/22/20 Range/Units 06:14 09:06 09:06 RBC 5.80 H (3.80-5.40) m/uL Hgb (11.4-16.0) gm/dL Hct 54.3 H (34.0-46.0) % MCHC 28.8 L (31.0-37.0) g/dL RDW 18.6 H (11.5-15.5) % Lymphocytes # 0.5 L (1.0-4.8) k/uL APTT (22.0-30.0) sec D-Dimer 1.07 H (<0.60) mg/L FEU Chloride 109 H (98-107) mmol/L Carbon Dioxide 31 H (22-30) mmol/L BUN 23 H (7-17) mg/dL Glucose (74-99) mg/dL Magnesium (1.6-2.3) mg/dL Alkaline Phosphatase 157 H (38-126) U/L Troponin I (0.000-0.034) ng/mL Total Protein 6.2 L (6.3-8.2) g/dL Albumin 3.4 L (3.5-5.0) g/dL Thrombosis Risk Factor Assmnt - Choose All That Apply Any of the Below Risk Factors Present?: No Each Risk Factor Represents 2 Points: Age 61-74 years Other congenital or acquired thrombophilia - If yes, enter type in comment: No Thrombosis Risk Factor Assessment Total Risk Factor Score: 2 Thrombosis Risk Factor Assessment Level: Low Risk Assessment and Plan Plan: -Shortness of breath and hypoxemia: Secondary to COPD exacerbation as well as a competent of congestive heart failure, patient had normal ejection fraction the past patient is being treated for diastolic dysfunction is and he is on IV Lasix patient has moderate pulmonary hypertension which is only contributing to her shortness of breath and peripheral edema -COPD with acute exacerbation: Patient is on inhalational treatments and inhaled steroids as well as systemic steroids Congestive heart failure chronic diastolic dysfunction with acute exacerbation -Elevated d-dimer for which CT angios the chest is being obtained -Elevated troponins as acute non-ST elevation myocardial infarction cannot be ruled out patient was started on IV heparin by cardiology -Patient is underweight with very low BMI, due to chronic smoking and COPD -Depression -sinus tachycardia but is secondary to hypoxemia and anticholinergic medications anticholinergic medications are being held and resumed on metoprolol and verapamil -Depression -Pulmonary nodules for which patient will follow as an outpatient -Dvt to prophylaxis patient is on IV heparin for possibility of non-ST elevation myocardial infarction
[2020-08-22] MEDS: HEPARIN SODIUM 1,000 UN/ML (10ML VL) IV PRN (17:59)
[2020-08-22] MEDS ORDERED: IPRATROPIUM-ALBUTEROL 3 ML NEB INHALATION PRN (19:54)
[2020-08-22] MEDS: MIRTAZAPINE 45 MG TABLET PO SCH (21:04)
[2020-08-23] MEDS: methylPREDNISolone SOD SUCCI 40 MG/ML 1 ML VIAL IV SCH ×5 (00:08→22:37)
[2020-08-23] MEDS: HEPARIN SODIUM 1,000 UN/ML (10ML VL) IV PRN ×2 (01:23→09:53)
[2020-08-23] MEDS: LEVOTHYROXINE 25 MCG TAB PO SCH (06:12)
[2020-08-23 06:32] LABS: Chol/HDL Ratio 3.95; LDL Cholesterol,Calculated 155.8 mg/dL (0.0-131.0); VLDL Calculation 33.2 mg/dL (5.00-40.00)
[2020-08-23 08:04] LABS: Anisocytosis Slight; Basophils % (A) 0 %; Eosinophils % (A) 0 %; HCT 51.4 % (34.0-46.0); HGB 15.7 gm/dL (11.4-16.0); Hypochromasia Moderate; Lymphocytes # (A) 0.3 k/uL (1.0-4.8); Lymphocytes % (A) 4 %; MCHC 30.6 g/dL (31.0-37.0); MCV 91.6 fL (80.0-100.0); Mean Platelet Volume 7.8; Monocytes # (A) 0.4 k/uL (0-1.0); Monocytes % (A) 4 %; Neutrophils # (A) 8.1 k/uL (1.3-7.7); Neutrophils % (A) 92 %; Platelet Count 292 k/uL (150-450); RBC 5.61 m/uL (3.80-5.40); RDW 18.7 % (11.5-15.5); WBC 8.8 k/uL (3.8-10.6)
[2020-08-23 08:15] LABS: Partial Thromboplastin Time 30.3 sec (22.0-30.0)
[2020-08-23 08:22] LABS: Calcium 9.4 mg/dL (8.4-10.2); Magnesium 1.8 mg/dL (1.6-2.3); Potassium 4.3 mmol/L (3.5-5.1)
[2020-08-23] MEDS: SYMBICORT 160-4.5 MCG INHALER INHALATION SCH ×2 (08:22→20:03)
[2020-08-23] MEDS: IPRATROPIUM-ALBUTEROL 3 ML NEB INHALATION SCH ×4 (08:22→20:03)
[2020-08-23] MEDS ORDERED: ASPIRIN 325 MG TAB PO SCH (09:00)
[2020-08-23] MEDS: ATORVASTATIN 80 MG TAB PO SCH (09:29)
[2020-08-23] MEDS: ASPIRIN 81 MG PO SCH (09:29)
[2020-08-23] MEDS: FUROSEMIDE 10 MG/ML 2 ML VIAL IV SCH (09:30)
[2020-08-23] MEDS: NITROGLYCERIN OINT 1 INCH/GM PACKET TOPICAL SCH ×2 (09:30→16:48)
[2020-08-23] MEDS: VERAPAMIL 40 MG TAB PO SCH ×2 (09:32→20:28)
[2020-08-23] MEDS: METOPROLOL TARTRATE 25 MG TAB PO SCH ×2 (09:35→20:29)
[2020-08-23] MEDS: HEPARIN SOD,PORK IN 0.45% NACL 25,000 UNIT in 0.45% NACL 1 250ML.BAG IV SCH (11:42)
--- NOTE | 2020-08-23 12:38 | P.PN ---
Subjective Progress Note Date: 08/23/20 Principal diagnosis: Shortness of breath, acute exacerbation of COPD, chest pain This is a 70-year-old white female patient with past medical history of COPD, not on home oxygen usually, chronic and ongoing history of smoking, patient carries [id number] smoking history, hypertension, chronic dysphagia, malnutrition, depression. She follows with Dr. Levine in the pulmonary clinic. Her outpatient PFT showed FEV1 of 0.67 L or 20% of predicted, FEV1/FVC is 54%, consistent with stage IV COPD. She is being monitored on an outpatient basis in regards to nodular changes in her lungs bilaterally especially in the apices of both lungs mostly in the right posterior aspect of the right lung. Her most recent CT of the chest with IV contrast was completed on 07/04/2020 showing no acute pulmonary embolism, mild right middle lobe and lingular bronchiectasis, tiny pulmonary nodules and to a lesser degree at the right base, possibly related to chronic or recurrent infection. There was biapical scarring in the right lung greater than left, which was unchanged compared to her previous computed tomography scan from 10/20/2019. The patient was not a candidate for any intervention or for any surgery or a CT-guided needle biopsy considering her severe COPD and overall clinical status. Patient has had no hemoptysis, no fever, she is extremely frail and underweight, her BMI is only 12.1 kg/m. Patient continues to smoke despite her poor lung function. On 08/21/2020 patient presents emergency department for evaluation of intermittent chest pain, shortness of breath, not feeling well. She states her and her sister had not been feeling well for last several days and she was having increased difficulty breathing. Denies any fever or chills, only occasional cough, no hemoptysis, she does report chest discomfort in the left side of her chest, which is achy and intermittent in nature. Chest x-ray shows COPD with cardiomegaly, and interstitial changes, possible trace left pleural effusion, with consideration for superimposed CHF and pulmonary vascular congestion. EKG showed sinus tachycardia with PACs, and nonspecific ST abnormality. Patient did have troponin elevation of 0.147, and 0.182, and cardiology consultation was requested and patient was seen by cardiology and placed on heparin infusion. She was tested for COVID-19 and was negative, she states she has completed her Covid vaccination. Her proBNP was elevated at 10,000, the patient has been started on IV diuretics by cardiology, she does report some mild swelling in her lower extremities, and there is positive JVD on physical exam. Her white blood cell count is 8.9, hemoglobin is 16.2, darron ctrolytes and renal profile were unremarkable. Magnesium level is 1.5, alkaline phosphatase is 196, AST and ALT were within normal limits, TSH was within normal limits. Doing our evaluation patient is still being in bed on selective care unit, she is currently in the emergency department, she is awake and alert, appears to be in no acute distress, she is currently on 3 L of oxygen pulse ox is 92%, however she is still tachycardic, and she is and what appears to be sinus tachycardia, blood pressure stable, she is afebrile. On 08/23/2020 patient seen in follow-up on selective care unit. She states her breathing has improved, denies any chest pain right now, she is on 2 L of oxygen pulse ox is 91%, she is afebrile, hemodynamically she has been stable, she remains on heparin infusion for elevated troponins, cardiology following the patient, echocardiogram showed low normal EF of 50-55%, moderate pulmonary hypertension. We obtained CTA chest which showed no evidence of acute pulmonary embolism, and a new 1.2 cm density in the posterior left lung base adjacent to the pleural margin which was felt to be nonspecific. This could be related to a rounded atelectasis. Patient's denies any chest discomfort, no cough, lung sounds are diminished, she is on IV steroids, breathing treatments, and IV Lasix 20 mg every 12 hours. She is mildly in negative net fluid balance, -228 over the last 24 hours, lower extremity edema improved. Objective - Vital Signs Vital signs: Vital Signs Temp 97.4 F L 08/23/20 11:18 Pulse 99 08/23/20 11:32 Resp 20 08/23/20 11:18 BP 117/60 08/23/20 11:18 Pulse Ox 91 L 08/23/20 11:18 Intake & Output 08/22/20 08/23/20 08/23/20 18:59 06:59 18:59 Intake Total 32.38 256.342 271.653 Output Total 800 500 Balance 32.38 -543.658 -228.347 Weight 33.112 kg 33.7 kg Intake: Intake, IV Titration 32.38 36.342 51.653 Amount Heparin Sod,Pork in 0.45% 32.38 36.342 51.653 NaCl 25,000 unit In 0.45 % NaCl 1 250ml.bag @ 12 UNITS/KG/HR 3.973 mls/hr IV .Q24H [facility] Rx#: [id number] Oral 220 220 Output: Urine 800 500 Other: Voiding Method Bedside Commode Bedside Commode # Voids 1 # Bowel Movements 1 - Exam GENERAL EXAM: Alert, very frail looking, 70-year-old white female on 2 L of oxygen, resting on the gurney in the emergency department, with a pulse ox of 92%, comfortable in no apparent distress. HEAD: Normocephalic/atraumatic. EYES: Normal reaction of pupils, equal size. Conjunctiva pink, sclera white. NOSE: Clear with pink turbinates. THROAT: No erythema or exudates. NECK: No masses, +JVD, no thyroid enlargement, no adenopathy. CHEST: No chest wall deformity. Symmetrical expansion. LUNGS: Equal air entry with no crackles, wheeze, rhonchi or dullness. CVS: Regular rate and rhythm, normal S1 and S2, no gallops, no murmurs, no rubs, patient is currently tachycardic with a heart rate between 120-140 BPM, in sinus mechanism ABDOMEN: Soft, nontender. No hepatosplenomegaly, normal bowel sounds, no guarding or rigidity. EXTREMITIES: No clubbing, mild 1+ lower extremity pretibial edema, no cyanosis, 2+ pulses and upper and lower extremities. MUSCULOSKELETAL: Muscle strength and tone normal. SPINE: No scoliosis or deformity SKIN: No rashes CENTRAL NERVOUS SYSTEM: Alert and oriented -3. No focal deficits, tone is norm al in all 4 extremities. PSYCHIATRIC: Alert and oriented -3. Appropriate affect. Intact judgment and insight. - Labs CBC & Chem 7: 08/23/20 07:49 08/23/20 07:49 Labs: Abnormal Lab Results - Last 24 Hours (Table) 08/22/20 08/23/20 08/23/20 Range/Units 09:06 07:49 07:49 RBC 5.61 H (3.80-5.40) m/uL Hct 51.4 H (34.0-46.0) % MCHC 30.6 L (31.0-37.0) g/dL RDW 18.7 H (11.5-15.5) % Neutrophils # 8.1 H (1.3-7.7) k/uL Lymphocytes # 0.3 L (1.0-4.8) k/uL APTT (22.0-30.0) sec Carbon Dioxide 34 H (22-30) mmol/L BUN 32 H (7-17) mg/dL Glucose 170 H (74-99) mg/dL Triglycerides 166.0 H (0.0-149.0) mg/dL Cholesterol 253 H (0-200) mg/dL LDL Cholesterol, Calc 155.8 H (0.0-131.0) mg/dL HDL Cholesterol 64.0 H (40.0-60.0) mg/dL 08/23/20 Range/Units 07:49 RBC (3.80-5.40) m/uL Hct (34.0-46.0) % MCHC (31.0-37.0) g/dL RDW (11.5-15.5) % Neutrophils # (1.3-7.7) k/uL Lymphocytes # (1.0-4.8) k/uL APTT 30.3 H (22.0-30.0) sec Carbon Dioxide (22-30) mmol/L BUN (7-17) mg/dL Glucose (74-99) mg/dL Triglycerides (0.0-149.0) mg/dL Cholesterol (0-200) mg/dL LDL Cholesterol, Calc (0.0-131.0) mg/dL HDL Cholesterol (40.0-60.0) mg/dL Assessment and Plan Plan: Assessment: #1. Intermittent chest pain, atypical, mildly elevated troponins, cardiology is following #2. Acute exacerbation of COPD #3. Acute CHF with diastolic dysfunction, echocardiogram showed EF of 50-55%, mild MR, mild TR, moderate pulmonary hypertension with right-sided pressure of 49.7 mmHg #4. Elevated d-dimer with no CT evidence of pulmonary embolism #5. Severe COPD, with baseline FEV1 of 0.67 L or 28% of predicted consistent with stage IV COPD. Not oxygen or prednisone dependent at baseline #6. [id number] smoking history, and patient continues to smoke #7. Poor nutritional status, patient is underweight, her BMI is 12.1 kg/m #8. Chronic dysphagia #9. Depression #10. Lung nodules that are being followed on an outpatient basis by Dr. Levine #11. Osteoporosis Plan: Continue IV steroids History of ischemic switched to oral prednisone upon discharge No complaints of chest pain, no worsening dyspnea CTA chest showed no pulmonary embolism, Cardiology is following the patient in regards to positive troponins and chest pain From pulmonary perspective she can be considered for discharge home if cleared by cardiology She can follow up with Dr. Levine in the office in 7-10 days I performed a history & physical examination of the patient and discussed their management with my nurse practitioner, Kristine Teixeira. I reviewed the nurse practitioner's note and agree with the documented findings and plan of care. Lacy ng sounds are positive for diminished breath sounds. The findings and the impression was discussed with the patient. I attest to the documentation by the nurse practitioner. Time with Patient: Less than 30
--- NOTE | 2020-08-23 14:31 | P.PN ---
Subjective Progress Note Date: 08/23/20 HISTORY OF PRESENT ILLNESS: This is a pleasant 70-year-old female past medical history significant for COPD, hypertension, nicotine dependence. She follows in the office with Dr. Andrews. We have been asked to see in consultation for chest pain. Patient is seen and examined in the emergency department. Patient states she started having midsternal chest pain yesterday. Pain is nonradiating. However she does endorse some back pain. She is unable to tell me the pain isn't exertional. She does not describe anything that makes the pain better or worse. She does endorse lower extremity edema. Associated symptoms include dizziness, shortness of breath, slight non-productive cough. She denies lightheadedness or syncope or palpitations. Patient smokes daily, when asked how much she states "enough". She denies orthopnea or PND symptoms. She is lying flat on her side, appears short of breath. Denies history of Diabetes, Stroke, ID, or coronary artery disease. She denies family history of heart disease. She denies alcohol use. She denies any weight loss. Current home medications include Excedrin when necessary, levothyroxine 25 g daily, potassium chloride 10 mEq when necessary, spur reviewed the daily, citrate to seen 10 mg daily, omeprazole 20 mg daily, v erapamil 40 mg twice a day, metoprolol titrate 25 mg twice a day, Symbicort twice a day, albuterol when necessary, Flonase when necessary. On admission patient's blood pressure 120/62, 90% on room air, requiring BiPAP overnight, HR in the 140s, afebrile DIAGNOSTICS EKG reveals sinus tachycardia with PACs, HR 132, right axis deviation, no significant ST-T wave abnormalities Prior EKG in the office in 2019 sinus tachycardia HR 102, left ventricular hypertrophy Most recent Lexiscan 04/12/2019 in the office - Negative stress induced ischemia Most recent echocardiogram 04/12/2019 in the office- 60%, mild/regurgitation, mild tricuspid regurgitation, small circumflex in potential pericardial effusion 08/07/2020- Thoracic and Lumbar Spine MRI- ostial porotic compression deformity. L4,. Following acute chronic L1, superior aspect of L5 appears chronic. Degenerative disc disease Telemetry tracings indicate sinus tachycardia, atrial tachycardia Chest xray hyperinflation consistent with COPD with cardiomegaly interstitial changes. Trace left pleural effusion Laboratory reviewed, WBC 8.9, hemoglobin 16.2, platelets 281, sodium 142, potassium 4.5, serum creatinine 0.91, BUN/creatinine 23, magnesium 1.5 (replaced), repeat 1.8, Troponin trend 0.14-->0.14-->0.18, Pro-BNP 10,000, TSH within normal limits, Covid-19 negative, total protein 6.2, albumin 3.4 08/23/2020 Patient examined this morning at the bedside. Patient states she is feeling well this morning. She denies chest pain or pressure. She denies shortness of breath. She remains on IV lasix. BUN 32. Creatinine 0.93. Fluid balance over the last 24 hours is -511cc. echocardiogram completed reveals ejection fraction 50-55%, mild mitral regurgitation, mild tricuspid regurgitation, moderate pulmonary hypertension, small generalized pericardial effusion, and small pleural effusion. PHYSICAL EXAM: VITAL SIGNS: Reviewed. GENERAL: Well-developed in no acute distress. NECK: Supple. No JVD or thyromegaly LUNGS: Respirations even and unlabored. Lungs diminished bilaterally. HEART: Regular rate and rhythm. S1 and S2 heard. EXTREMITIES: Normal range of motion. No clubbing or cyanosis. Peripheral pulses intact. No lower extremity edema ASSESSMENT: Chest pain, atypical, no EKG evidence of ischemia Shortness of breath, with history of COPD Acute diastolic heart failure Elevated troponin- possibly related to patient's COPD Sinus tachycardia COPD History of Hypertension Chronic Nicotine dependence Hypomagnesemia PLAN: Discontinue IV heparin Discontinue IV Lasix. Begin oral Lasix 20 mg twice a day Continue additional cardiac medications Further recommendations pending patient course Nurse practitioner note has been reviewed by physician. Signing provider agrees with the documented findings, assessment, and plan of care. Objective - Vital Signs Vital signs: Vital Signs Temp 97.4 F L 08/23/20 11:18 Pulse 99 08/23/20 11:32 Resp 20 08/23/20 11:18 BP 117/60 08/23/20 11:18 Pulse Ox 91 L 08/23/20 11:18 Intake & Output 08/22/20 08/23/20 08/23/20 18:59 06:59 18:59 Intake Total 32.38 256.342 271.653 Output Total 800 500 Balance 32.38 -543.658 -228.347 Weight 33.112 kg 33.7 kg Intake: Intake, IV Titration 32.38 36.342 51.653 Amount Heparin Sod,Pork in 0.45% 32.38 36.342 51.653 NaCl 25,000 unit In 0.45 % NaCl 1 250ml.bag @ 12 UNITS/KG/HR 3.973 mls/hr IV .Q24H [facility] Rx#: [id number] Oral 220 220 Output: Urine 800 500 Other: Voiding Method Bedside Commode Bedside Commode # Voids 1 # Bowel Movements 1 - Labs CBC & Chem 7: 08/23/20 07:49 08/23/20 07:49 Labs: Abnormal Lab Results - Last 24 Hours (Table) 08/22/20 08/23/20 08/23/20 Range/Units 09:06 07:49 07:49 RBC 5.61 H (3.80-5.40) m/uL Hct 51.4 H (34.0-46.0) % MCHC 30.6 L (31.0-37.0) g/dL RDW 18.7 H (11.5-15.5) % Neutrophils # 8.1 H (1.3-7.7) k/uL Lymphocytes # 0.3 L (1.0-4.8) k/uL APTT (22.0-30.0) sec Carbon Dioxide 34 H (22-30) mmol/L BUN 32 H (7-17) mg/dL Glucose 170 H (74-99) mg/dL Triglycerides 166.0 H (0.0-149.0) mg/dL Cholesterol 253 H (0-200) mg/dL LDL Cholesterol, Calc 155.8 H (0.0-131.0) mg/dL HDL Cholesterol 64.0 H (40.0-60.0) mg/dL 08/23/20 Range/Units 07:49 RBC (3.80-5.40) m/uL Hct (34.0-46.0) % MCHC (31.0-37.0) g/dL RDW (11.5-15.5) % Neutrophils # (1.3-7.7) k/uL Lymphocytes # (1.0-4.8) k/uL APTT 30.3 H (22.0-30.0) sec Carbon Dioxide (22-30) mmol/L BUN (7-17) mg/dL Glucose (74-99) mg/dL Triglycerides (0.0-149.0) mg/dL Cholesterol (0-200) mg/dL LDL Cholesterol, Calc (0.0-131.0) mg/dL HDL Cholesterol (40.0-60.0) mg/dL
--- NOTE | 2020-08-23 15:31 | P.PN ---
Subjective 70-year-old the female has seen the her primary care physician for not feeling well and generalized tiredness and weakness in the a chest x-ray was obtained which showed findings consistent with CHF because of which patient was sent to ER. Does have history of COPD continues to smoke thin built with the significant emphysema on the chest x-ray. Patient did admit to increased the shortness of breath. Occasional cough. Patient any significant orthopnea or paroxysmal nocturnal dyspnea although chest x-ray did show some pulmonary vascular congestion and elevated BNP and can't clearly appreciate JVD troponin is minimally elevated to 0.147 0.182 cardiology evaluated the patient and patient was started on IV heparin infusion patient's Covid 19 is negative patient was also started on IV diuretics patient's magnesium level is only 1.5 which will be replaced patient has mildly elevated d-dimer and pulmonology is obtaining a CT angios the chest to rule out any pulmonary embolism. Patient is significantly tachycardic which is sinus tachycardia patient is on hydroxyzine which may be contributing to her tachycardia this will be held. Patient is on verapamil and metoprolol which will be continued. Patient was also apparently complaining of intermittent chest pain 08/23/2020 and patient feels much better her pedal edema improved patient had a CT angios the chest which showed 1.0 cm density in the posterior left lung. Pulmonology is following the patient. Patient still has bibasilar crackles was evaluated by cardiology patient remains on Lasix but was transitioned to oral Lasix. Patient had normal ejection fraction has moderate to pulmonary hypertension on the echocardiogram which is probably secondary to COPD. Objective - Vital Signs Vital signs: Vital Signs Temp 97.4 F L 08/23/20 11:18 Pulse 99 08/23/20 11:32 Resp 20 08/23/20 11:18 BP 117/60 08/23/20 11:18 Pulse Ox 91 L 08/23/20 11:18 Intake & Output 08/22/20 08/23/20 08/23/20 18:59 06:59 18:59 Intake Total 32.38 256.342 545.496 Output Total 800 800 Balance 32.38 -543.658 -254.504 Weight 33.112 kg 33.7 kg Intake: Intake, IV Titration 32.38 36.342 85.496 Amount Heparin Sod,Pork in 0.45% 32.38 36.342 85.496 NaCl 25,000 unit In 0.45 % NaCl 1 250ml.bag @ 12 UNITS/KG/HR 3.973 mls/hr IV .Q24H [facility] Rx#: [id number] Oral 220 460 Output: Urine 800 800 Other: Voiding Method Bedside Commode Bedside Commode # Voids 1 # Bowel Movements 1 - Exam PHYSICAL EXAMINATION: GENERAL: The patient is alert and oriented x3, not in any acute distress. Thin built female cachectic is not in respiratory distress on 2 L of oxygen HEENT: Pupils are round and equally reacting to light. EOMI. No scleral icterus. No conjunctival pallor. Normocephalic, atraumatic. No pharyngeal erythema. No thyromegaly. CARDIOVASCULAR: S1 and S2 present. No murmurs, rubs, or gallops. PULMONARY: Bibasilar crackles are appreciated good air entry bilateral lung f ields ABDOMEN: Soft, nontender, nondistended, normoactive bowel sounds. No palpable organomegaly. MUSCULOSKELETAL: No joint swelling or deformity. EXTREMITIES: No cyanosis, clubbing, or pedal edema resolved NEUROLOGICAL: Gross neurological examination did not reveal any focal deficits. SKIN: No rashes. - Labs CBC & Chem 7: 08/23/20 07:49 08/23/20 07:49 Labs: Abnormal Lab Results - Last 24 Hours (Table) 08/22/20 08/23/20 08/23/20 Range/Units 09:06 07:49 07:49 RBC 5.61 H (3.80-5.40) m/uL Hct 51.4 H (34.0-46.0) % MCHC 30.6 L (31.0-37.0) g/dL RDW 18.7 H (11.5-15.5) % Neutrophils # 8.1 H (1.3-7.7) k/uL Lymphocytes # 0.3 L (1.0-4.8) k/uL APTT (22.0-30.0) sec Carbon Dioxide 34 H (22-30) mmol/L BUN 32 H (7-17) mg/dL Glucose 170 H (74-99) mg/dL Triglycerides 166.0 H (0.0-149.0) mg/dL Cholesterol 253 H (0-200) mg/dL LDL Cholesterol, Calc 155.8 H (0.0-131.0) mg/dL HDL Cholesterol 64.0 H (40.0-60.0) mg/dL 08/23/20 Range/Units 07:49 RBC (3.80-5.40) m/uL Hct (34.0-46.0) % MCHC (31.0-37.0) g/dL RDW (11.5-15.5) % Neutrophils # (1.3-7.7) k/uL Lymphocytes # (1.0-4.8) k/uL APTT 30.3 H (22.0-30.0) sec Carbon Dioxide (22-30) mmol/L BUN (7-17) mg/dL Glucose (74-99) mg/dL Triglycerides (0.0-149.0) mg/dL Cholesterol (0-200) mg/dL LDL Cholesterol, Calc (0.0-131.0) mg/dL HDL Cholesterol (40.0-60.0) mg/dL Assessment and Plan Plan: -Shortness of breath and hypoxemia: Secondary to COPD exacerbation as well as a competent of congestive heart failure, patient had normal ejection fraction the past patient is being treated for diastolic dysfunction .patient has moderate pulmonary hypertension which is probably contributing to her shortness of breath and peripheral edema -COPD with acute exacerbation: Patient is on inhalational treatments and inhaled steroids as well as systemic steroids -Masslike consolidation in the lung management as per pulmonary Congestive heart failure chronic diastolic dysfunction with acute exacerbation, patient is presently on oral Lasix -Elevated d-dimer for which CT angios the chest is being obtained -Elevated troponins as acute non-ST elevation myocardial infarction cannot be ruled out cardiology evaluated the patient IV heparin is being discontinued -Patient is underweight with very low BMI, due to chronic smoking and COPD -Depression -sinus tachycardia but is secondary to hypoxemia and anticholinergic medications anticholinergic medications are being held and resumed on metoprolol and verapamil. Heart rate is well controlled -Depression -Pulmonary nodules for which patient will follow as an outpatient -Dvt to prophylaxis patient is on IV heparin for possibility of non-ST elevation myocardial infarction
[2020-08-23] MEDS: FUROSEMIDE 20 MG TAB PO SCH (18:08)
[2020-08-23] MEDS: MIRTAZAPINE 45 MG TABLET PO SCH (20:28)
[2020-08-24] MEDS: methylPREDNISolone SOD SUCCI 40 MG/ML 1 ML VIAL IV SCH ×3 (06:25→18:18)
[2020-08-24] MEDS: LEVOTHYROXINE 25 MCG TAB PO SCH (06:25)
[2020-08-24] MEDS: IPRATROPIUM-ALBUTEROL 3 ML NEB INHALATION SCH ×4 (07:37→19:06)
[2020-08-24] MEDS: SYMBICORT 160-4.5 MCG INHALER INHALATION SCH ×2 (07:37→19:06)
[2020-08-24] MEDS: VERAPAMIL 40 MG TAB PO SCH ×2 (08:42→20:11)
[2020-08-24] MEDS: ASPIRIN 81 MG PO SCH (08:42)
[2020-08-24] MEDS: FUROSEMIDE 20 MG TAB PO SCH (08:42)
[2020-08-24] MEDS: ATORVASTATIN 80 MG TAB PO SCH (08:42)
[2020-08-24] MEDS: METOPROLOL TARTRATE 25 MG TAB PO SCH ×2 (08:42→20:11)
[2020-08-24 10:29] LABS: Calcium 8.8 mg/dL (8.4-10.2); Potassium 4.7 mmol/L (3.5-5.1)
--- NOTE | 2020-08-24 13:13 | PN ---
PROGRESS NOTE HISTORY: Ms. Arauz is a 70-year-old female who presented with symptoms of progressive dyspnea and symptoms of chest discomfort, not activity related. She is feeling better today. Her breathing is better. She denies any dizziness. She denies any palpitations. No nausea. She continues to be at this time on aspirin once a day, Lipitor 80 mg daily, furosemide 20 mg twice a day, methyl prednisolone, metoprolol tartrate 25 mg twice a day, and verapamil 40 mg twice a day. PHYSICAL EXAMINATION: Blood pressure running in the 140s with a heart rate in the 70s. Lungs with decreased air exchange no wheezes. Heart regular rhythm S1, S2. No S3 with a systolic murmur no diastolic murmur. Abdomen is soft nontender. Extremities trace to 1+ edema. IMPRESSION: 1. Progressive dyspnea with exacerbation of chronic obstructive pulmonary disease. 2. Chest discomfort atypical for ischemic heart disease with troponin elevation with no evidence to suggest acute ischemic event. 3. History of diastolic dysfunction heart failure. 4. History of chronic tobacco use. RECOMMENDATIONS: From the cardiac standpoint, will continue present therapy. Continue to follow her renal function. Increase her level activity gradually. I will cut down the dose of her diuretic at this time. Her BUN and creatinine are increasing. Her edema has improved. Some of the elevation could be related to the steroids. Depending on her progress, further recommendation will be made. MMODL / IJN: [id number] /
--- NOTE | 2020-08-24 14:09 | P.DS ---
Providers Date of admission: 08/21/20 20:49 Attending physician: Joseluis Nichole Consults: 08/21/20 20:49 Consult Physician Routine Consulting Provider: Brian Nicolas Consult Reason/Comments: NSTEMI Do you want consulting provider notified?: Yes 08/22/20 08:27 Consult Physician Routine Consulting Provider: Kacey Armenta Consult Reason/Comments: COPD, hypoxia requiring BiPAP Do you want consulting provider notified?: Yes Primary care physician: [facility] Hospital Course: 70-year-old the female has seen the her primary care physician for not feeling well and generalized tiredness and weakness in the a chest x-ray was obtained which showed findings consistent with CHF because of which patient was sent to ER. Does have history of COPD continues to smoke thin built with the significant emphysema on the chest x-ray. Patient did admit to increased the shortness of breath. Occasional cough. Patient any significant orthopnea or paroxysmal nocturnal dyspnea although chest x-ray did show some pulmonary vascular congestion and elevated BNP and can't clearly appreciate JVD troponin is minimally elevated to 0.147 0.182 cardiology evaluated the patient and patient was started on IV heparin infusion patient's Covid 19 is negative patient was also started on IV diuretics patient's magnesium level is only 1.5 which will be replaced patient has mildly elevated d-dimer and pulmonology is obtaining a CT angios the chest to rule out any pulmonary embolism. Patient is significantly tachycardic which is sinus tachycardia patient is on hydroxyzine which may be contributing to her tachycardia this will be held. Patient is on verapamil and metoprolol which will be continued. Patient was also apparently complaining of intermittent chest pain 08/23/2020 and patient feels much better her pedal edema improved patient had a CT angios the chest which showed 1.0 cm density in the posterior left lung. Pulmonology is following the patient. Patient still has bibasilar crackles was evaluated by cardiology patient remains on Lasix but was transitioned to oral Lasix. Patient had normal ejection fraction has moderate to pulmonary hypertension on the echocardiogram which is probably secondary to COPD. 08/24/2020 Patient was extensive counseling regarding smoking cessation. She continues to smoke patient will get readmitted. Same thing was counseled to the patient. Patient respiratory status improved and patient doesn't have any crackles today patient will be discharged on oral Lasix 20 mg daily patient will need basic metabolic profile tested in about 3 days when she follows up with her primary care physician. Patient probably will not need any potassium supplementation as her potassium remained stable despite of IV Lasix here. Patient creatinine is worsened a bit. PHYSICAL EXAMINATION: GENERAL: The patient is alert and oriented x3, not in any acute distress. Thin built female cachectic is not in respiratory distress on 2 L of oxygen HEENT: Pupils are round and equally reacting to light. EOMI. No scleral icterus. No conjunctival pallor. Normocephalic, atraumatic. No pharyngeal erythema. No thyromegaly. CARDIOVASCULAR: S1 and S2 present. No murmurs, rubs, or gallops. PULMONARY: Good air entry into bilateral lung gordon, no crackles today. ABDOMEN: Soft, nontender, nondistended, normoactive bowel sounds. No palpable organomegaly. MUSCULOSKELETAL: No joint swelling or deformity. EXTREMITIES: No cyanosis, clubbing, or pedal edema resolved NEUROLOGICAL: Gross neurological examination did not reveal any focal deficits. SKIN: No rashes. Assessment and Plan Plan: -Shortness of breath and hypoxemia: Secondary to COPD exacerbation as well as a competent of congestive heart failure, patient had normal ejection fraction the past patient is being treated for diastolic dysfunction .patient has moderate pulmonary hypertension which is probably contributing to her shortness of breath and peripheral edema -COPD with acute exacerbation: Patient is on inhalational treatments and inhaled steroids as well as systemic steroids -Masslike consolidation in the lung management as per pulmonary as outpatient Congestive heart failure chronic diastolic dysfunction with acute exacerbation. -Elevated d-dimer for which CT angios did not show any pulmonary embolism -Elevated troponins as acute non-ST elevation myocardial infarction cannot be ruled out cardiology evaluated the patient IV heparin is being discontinued -Patient is underweight with very low BMI, due to chronic smoking and COPD -Depression -sinus tachycardia but is secondary to hypoxemia and anticholinergic medications anticholinergic medications are being held and resumed on metoprolol and verapamil. Heart rate is well controlled now -Depression -Pulmonary nodules for which patient will follow as an outpatient Plan - Discharge Summary Discharge Rx Participant: No New Discharge Prescriptions: New Furosemide [Lasix] 20 mg PO DAILY #30 tab predniSONE 10 mg PO DAILY #30 tab Atorvastatin [Lipitor] 80 mg PO DAILY #30 tab Continue Albuterol Inhaler [Ventolin Hfa Inhaler] 1 puff INHALATION RT-QID PRN PRN Reason: Shortness Of Breath Or Wheezing Metoprolol Tartrate [Lopressor] 25 mg PO BID Mirtazapine 45 mg PO HS Omeprazole 20 mg PO DAILY PRN PRN Reason: GERD traMADol HCL 50 mg PO BID PRN PRN Reason: Pain Verapamil [Isoptin] 40 mg PO BID Tiotropium 2.5 Mcg/Puff [Spiriva Respimat 2.5 Mcg] 2 puff INHALATION RT-DAILY Fluticasone Nasal [place] [Flonase Nasal [place]] 1 spray EA NOSTRIL BID PRN PRN Reason: Allergy Symptoms Cetirizine HCl 10 mg PO DAILY PRN PRN Reason: Allergy Symptoms Calcium Carbonate/Vitamin D3 [Calcium 500 mg-Vit D3 5 mcg (200 Unit)] 3 tab PO DAILY Lactose-Reduced Food [Ensure Original] 1 dose PO TID Budesonide/Formoterol Fumarate [Symbicort 160-4.5 Mcg Inhaler] 2 puff INHALATION RT-BID Cyclobenzaprine [Flexeril] 5 mg PO BID PRN PRN Reason: Muscle Spasm Lidocaine 5% Patch [Lidoderm 5% Patch] 1 patch TOPICAL DAILY PRN PRN Reason: Pain Levothyroxine Sodium 25 mcg PO DAILY [id number] [Excedrin] 1 tab PO Q4HR PRN PRN Reason: Pain Discontinued Famotidine [Pepcid] 20 mg PO BID PRN PRN Reason: Heartburn hydrOXYzine pamoate [hydrOXYzine PAMOATE] 25 mg PO BID PRN PRN Reason: ANXIETY/SLEEP Potassium Chloride ER [K-Dur 10] 10 meq PO DIRECTED PRN PRN Reason: when taking lasix Discharge Medication List Albuterol Inhaler [Ventolin Hfa Inhaler] 1 puff INHALATION RT-QID PRN 12/27/19 [History] Metoprolol Tartrate [Lopressor] 25 mg PO BID 12/27/19 [History] Mirtazapine 45 mg PO HS 12/27/19 [History] Omeprazole 20 mg PO DAILY PRN 12/27/19 [History] Verapamil [Isoptin] 40 mg PO BID 12/27/19 [History] traMADol HCL 50 mg PO BID PRN 12/27/19 [History] Budesonide/Formoterol Fumarate [Symbicort 160-4.5 Mcg Inhaler] 2 puff INHALATION RT-BID 07/03/20 [History] Cetirizine HCl 10 mg PO DAILY PRN 07/03/20 [History] Fluticasone Nasal [place] [Flonase Nasal [place]] 1 spray EA NOSTRIL BID PRN 07/03/20 [History] Tiotropium 2.5 Mcg/Puff [Spiriva Respimat 2.5 Mcg] 2 puff INHALATION RT-DAILY 07/03/20 [History] Hulzhez-Oaaq-Ppzs [id number] [Excedrin] 1 tab PO Q4HR PRN 08/21/20 [History] Calcium Carbonate/Vitamin D3 [Calcium 500 mg-Vit D3 5 mcg (200 Unit)] 3 tab PO DAILY 08/21/20 [History] Cyclobenzaprine [Flexeril] 5 mg PO BID PRN 08/21/20 [History] Lactose-Reduced Food [Ensure Original] 1 dose PO TID 08/21/20 [History] Levothyroxine Sodium 25 mcg PO DAILY 08/21/20 [History] Lidocaine 5% Patch [Lidoderm 5% Patch] 1 patch TOPICAL DAILY PRN 08/21/20 [ History] Atorvastatin [Lipitor] 80 mg PO DAILY #30 tab 08/24/20 [Rx] Furosemide [Lasix] 20 mg PO DAILY #30 tab 08/24/20 [Rx] predniSONE 10 mg PO DAILY #30 tab 08/24/20 [Rx] Follow up Appointment(s)/Referral(s): Nurse,[facility] [NON-STAFF] - 3 Days [facility],Clinic [Primary Care Provider] - 3 Days
[2020-08-24 20:03] LABS: Glucose,Whole Blood 147 mg/dL (75-99)
[2020-08-24] MEDS: INSULIN ASPART (NovoLOG) 100 UNIT/ML VIAL SQ SCH (20:07)
[2020-08-24] MEDS: MIRTAZAPINE 45 MG TABLET PO SCH (20:11)
[2020-08-25] MEDS: methylPREDNISolone SOD SUCCI 40 MG/ML 1 ML VIAL IV SCH ×2 (00:01→06:16)
[2020-08-25 06:06] LABS: Glucose,Whole Blood 113 mg/dL (75-99)
[2020-08-25] MEDS: INSULIN ASPART (NovoLOG) 100 UNIT/ML VIAL SQ SCH ×4 (06:11→20:26)
[2020-08-25] MEDS: LEVOTHYROXINE 25 MCG TAB PO SCH (06:16)
[2020-08-25] MEDS: SYMBICORT 160-4.5 MCG INHALER INHALATION SCH ×2 (07:36→21:04)
[2020-08-25] MEDS: IPRATROPIUM-ALBUTEROL 3 ML NEB INHALATION SCH ×4 (07:36→21:04)
[2020-08-25] MEDS: METOPROLOL TARTRATE 25 MG TAB PO SCH ×2 (08:21→20:25)
[2020-08-25] MEDS: FUROSEMIDE 20 MG TAB PO SCH (08:21)
[2020-08-25] MEDS: ATORVASTATIN 80 MG TAB PO SCH (08:21)
[2020-08-25] MEDS: ASPIRIN 81 MG PO SCH (08:21)
[2020-08-25] MEDS: VERAPAMIL 40 MG TAB PO SCH ×2 (08:21→20:25)
[2020-08-25 09:25] LABS: Calcium 9.5 mg/dL (8.4-10.2); Potassium 4.7 mmol/L (3.5-5.1)
--- NOTE | 2020-08-25 10:40 | P.PN ---
Subjective 70-year-old the female has seen the her primary care physician for not feeling well and generalized tiredness and weakness in the a chest x-ray was obtained which showed findings consistent with CHF because of which patient was sent to ER. Does have history of COPD continues to smoke thin built with the significant emphysema on the chest x-ray. Patient did admit to increased the shortness of breath. Occasional cough. Patient any significant orthopnea or paroxysmal nocturnal dyspnea although chest x-ray did show some pulmonary vascular congestion and elevated BNP and can't clearly appreciate JVD troponin is minimally elevated to 0.147 0.182 cardiology evaluated the patient and patient was started on IV heparin infusion patient's Covid 19 is negative patient was also started on IV diuretics patient's magnesium level is only 1.5 which will be replaced patient has mildly elevated d-dimer and pulmonology is obtaining a CT angios the chest to rule out any pulmonary embolism. Patient is significantly tachycardic which is sinus tachycardia patient is on hydroxyzine which may be contributing to her tachycardia this will be held. Patient is on verapamil and metoprolol which will be continued. Patient was also apparently complaining of intermittent chest pain 08/23/2020 and patient feels much better her pedal edema improved patient had a CT angios the chest which showed 1.0 cm density in the posterior left lung. Pulmonology is following the patient. Patient still has bibasilar crackles was evaluated by cardiology patient remains on Lasix but was transitioned to oral Lasix. Patient had normal ejection fraction has moderate to pulmonary hypertension on the echocardiogram which is probably secondary to COPD. 08/24/2020 Patient was extensive counseling regarding smoking cessation. She continues to smoke patient will get readmitted. Same thing was counseled to the patient. Patient respiratory status improved and patient doesn't have any crackles today patient will be discharged on oral Lasix 20 mg daily patient will need basic metabolic profile tested in about 3 days when she follows up with her primary care physician. Patient probably will not need any potassium supplementation as her potassium remained stable despite of IV Lasix here. Patient creatinine is worsened a bit. 08/25/2020 Patient remained hypoxic unable to arrange oxygen because of her insurance. Patient probably can be discharged tomorrow once we're able to get her on home O2. Patient has mildly diminished air entry with mild bibasilar crackles. Patient was transitioned to oral prednisone Constitutional: Denied any fatigue denied any fever. Cardio vascular: denied any chest pain, palpitations Gastrointestinal denied any nausea vomiting Pulmonary: Denied any shortness of breath cough Neurologic denied any new focal deficits All inpatient medications were reviewed and appropriate changes in these medications as dictated in the interval history and assessment and plan. Objective - Vital Signs Vital signs: Vital Signs Temp 97.5 F L 08/25/20 08:00 Pulse 78 08/25/20 08:00 Resp 16 08/25/20 08:00 BP 158/80 08/25/20 08:00 Pulse Ox 94 L 08/25/20 08:00 Intake & Output 08/24/20 08/25/20 08/25/20 18:59 06:59 18:59 Intake Total 720 Output Total 1050 293 800 Balance -330 -293 -800 Weight 40.5 kg 39.5 kg 39.5 kg Intake: Oral 720 Output: Urine 1050 293 800 Other: Voiding Method Bedside Commode # Voids 2 1 - Exam PHYSICAL EXAMINATION: GENERAL: The patient is alert and oriented x3, not in any acute distress. Thin built female cachectic is not in respiratory distress on 2 L of oxygen HEENT: Pupils are round and equally reacting to light. EOMI. No scleral icterus. No conjunctival pallor. Normocephalic, atraumatic. No pharyngeal erythema. No thyromegaly. CARDIOVASCULAR: S1 and S2 present. No murmurs, rubs, or gallops. PULMONARY: Bibasilar crackles are appreciated good air entry bilateral lung gordon ABDOMEN: Soft, nontender, nondistended, normoactive bowel sounds. No palpable organomegaly. MUSCULOSKELETAL: No joint swelling or deformity. EXTREMITIES: No cyanosis, clubbing, or pedal edema resolved NEUROLOGICAL: Gross neurological examination did not reveal any focal deficits. SKIN: No rashes. - Labs CBC & Chem 7: 08/23/20 07:49 08/25/20 08:24 Labs: Abnormal Lab Results - Last 24 Hours (Table) 08/24/20 08/25/20 08/25/20 Range/Units 20:02 06:05 08:24 Carbon Dioxide 32 H (22-30) mmol/L BUN 54 H (7-17) mg/dL Glucose 148 H (74-99) mg/dL POC Glucose (mg/dL) 147 H 113 H (75-99) mg/dL Assessment and Plan Plan: -Shortness of breath and hypoxemia: Secondary to COPD exacerbation as well as a competent of congestive heart failure, patient had normal ejection fraction the past patient is being treated for diastolic dysfunction .patient has moderate pulmonary hypertension which is probably contributing to her shortness of breath and peripheral edema. Patient is desaturating will require home oxygen at room air patient is saturating only at 80% -COPD with acute exacerbation: Patient is on inhalational treatments and inhaled steroids as well as systemic steroids -Masslike consolidation in the lung management as per pulmonary Congestive heart failure chronic diastolic dysfunction with acute exacerbation, patient is presently on oral Lasix -Elevated d-dimer for which CT angios the chest is being obtained -Elevated troponins as acute non-ST elevation myocardial infarction cannot be ruled out cardiology evaluated the patient IV heparin is being discontinued -Patient is underweight with very low BMI, due to chronic smoking and COPD -Depression -sinus tachycardia but is secondary to hypoxemia and anticholinergic medications anticholinergic medications are being held and resumed on metoprolol and verapamil. Heart rate is well controlled -Depression -Pulmonary nodules for which patient will follow as an outpatient -Dvt to prophylaxis patient is on IV heparin for possibility of non-ST elevation myocardial infarction
[2020-08-25 11:29] LABS: Glucose,Whole Blood 102 mg/dL (75-99)
[2020-08-25 16:59] LABS: Glucose,Whole Blood 124 mg/dL (75-99)
[2020-08-25 20:19] LABS: Glucose,Whole Blood 139 mg/dL (75-99)
[2020-08-25] MEDS: MIRTAZAPINE 45 MG TABLET PO SCH (20:36)
[2020-08-26] MEDS: LEVOTHYROXINE 25 MCG TAB PO SCH (05:44)
[2020-08-26 06:56] LABS: Glucose,Whole Blood 95 mg/dL (75-99)
[2020-08-26] MEDS: INSULIN ASPART (NovoLOG) 100 UNIT/ML VIAL SQ SCH (07:04)
[2020-08-26] MEDS: METOPROLOL TARTRATE 25 MG TAB PO SCH (08:19)
[2020-08-26] MEDS: VERAPAMIL 40 MG TAB PO SCH (08:19)
[2020-08-26] MEDS: ASPIRIN 81 MG PO SCH (08:19)
[2020-08-26] MEDS: ATORVASTATIN 80 MG TAB PO SCH (08:19)
[2020-08-26] MEDS: FUROSEMIDE 20 MG TAB PO SCH (08:19)
[2020-08-26] MEDS ORDERED: predniSONE 20 MG TAB PO SCH (09:00)
[2020-08-26 09:01] VITALS: BP 132/86; RESP 18; TEMP 98.3
[2020-08-26] MEDS: SYMBICORT 160-4.5 MCG INHALER INHALATION SCH (09:07)
[2020-08-26] MEDS: IPRATROPIUM-ALBUTEROL 3 ML NEB INHALATION SCH ×3 (09:07→16:34)
[2020-08-26 09:22] VITALS: PULSE 74
[2020-08-26 10:22] LABS: African American GFR (CKD) 64 (>60 ml/min/1.73 sqM); Anion Gap 3 mmol/L; Blood Urea Nitrogen 60 mg/dL (7-17); Calcium 9.5 mg/dL (8.4-10.2); Carbon Dioxide 37 mmol/L (22-30); Chloride 99 mmol/L (98-107); Glucose 94 mg/dL (74-99); Non-African American GFR(CKD) 56 (>60 ml/min/1.73 sqM); Potassium 5.1 mmol/L (3.5-5.1); Sodium 139 mmol/L (137-145)
--- NOTE | 2020-08-26 10:50 | P.PN ---
Progress Note - Text Progress Note Date: 08/26/20 This is a very pleasant 70-year-old female patient with a past medical history significant for COPD as well as hypertension who was admitted to the hospital with shortness of breath and we consulted for chest discomfort we felt to be atypical and medical treatment only was advised. The patient was seen this morning which is chest pain-free beach she stated that the shortness of breath has improved. From a cardiovascular standpoint of view, the patient can be discharged home. No need for any further cardiac workup at this point. Please note that the patient underwent an echocardiogram and that revealed normal left ventricular systolic function.
[2020-08-26 14:39] VITALS: BMI 12.7
--- NOTE | 2020-08-27 14:20 | P.DS ---
Providers Date of admission: 08/21/20 20:49 Expected date of discharge: 08/26/20 Attending physician: Joseluis Nichole Consults: 08/21/20 20:49 Consult Physician Routine Consulting Provider: Brian Nicolas Consult Reason/Comments: NSTEMI Do you want consulting provider notified?: Yes 08/22/20 08:27 Consult Physician Routine Consulting Provider: Kacey Armenta Reason/Comments: COPD, hypoxia requiring BiPAP Do you want consulting provider notified?: Yes Primary care physician: [facility] Hospital Course: Final diagnosis -Shortness of breath and hypoxemia: Secondary to COPD exacerbation as well as a component of acute on chronic congestive heart failure with diastolic dysfunction -COPD with acute exacerbation -Mass-like consolidation in the lung management as per pulmonary -Congestive heart failure chronic diastolic dysfunction with acute exacerbation -Elevated d-dimer negative for pulmonary embolism on CT angiogram -Elevated troponins as acute non-ST elevation myocardial infarction cannot be ruled out -Patient is underweight with very low BMI, due to chronic smoking and COPD -Depression -sinus tachycardia secondary to hypoxemia and anticholinergic medications -Depression -Pulmonary nodules for which patient will follow as an outpatient -Dvt prophylaxis Discharge disposition Patient is being discharged in a stable condition with guarded prognosis to home. Patient will follow-up with Dr. [facility] in the outpatient setting upon discharge. Patient will also follow-up with pulmonary Dr. Armenta or along with cardiology Dr. Gonzalez. Patient to continue with the prednisone taper upon discharge. Total time taken is greater than 35 minutes. Hospital course This is a 70-year-old female who was recently admitted with generalized weakness and fatigue along with some increasing shortness of breath and COPD acute exacerbation and was being closely monitored. Pulmonary along with cardiology following the patient. She was treated with IV Lasix and diuresed well and has been transitioned oral Lasix and will continue in the outpatient setting. Patient instructed to follow-up with Dr. Armenta pulmonary along with Dr. Gonzalez cardiology as discussed and scheduled. Patient will require oxygen secondary to COPD upon discharge. Case management was unable to arrange for delivery of oxygen and supplies on Wednesday and is being discharged today. Patient is requesting to go home today. Currently no reports of chest pain, worsening shortness of breath, or palpitations. Patient is afebrile. No reports of nausea or vomiting and patient is tolerating diet. Patient will be discharged home today. On exam vital signs are stable. Cardio S1, S2 are muffled. Respiratory system shows diminished breath sounds at the bases with no wheezing or rhonchi noted. Abdomen is soft and nontender. Nervous system shows focal deficits. Please refer to medication reconciliation sheet for a list of medications. Patient Condition at Discharge: Fair Plan - Discharge Summary Discharge Rx Participant: No New Discharge Prescriptions: New Furosemide [Lasix] 20 mg PO DAILY #30 tab predniSONE 10 mg PO DAILY #30 tab Ipratropium-Albuterol Nebulize [Duoneb 0.5 mg-3 mg/3 ml Soln] 3 ml INHALATION RT-QID 30 Days #120 ml Multivitamins, Thera [Multivitamin] 1 tab PO DAILY #30 tablet Magic Cup 1 each PO TID BETWEEN MEALS #30 dose Atorvastatin [Lipitor] 80 mg PO DAILY #30 tab Aspirin 81 mg PO DAILY 30 Days #30 chew Ipratropium-Albuterol Nebulize [Duoneb 0.5 mg-3 mg/3 ml Soln] 3 ml INHALATION RT-Q2H PRN ml PRN Reason: Shortness Of Breath Or Wheezing Continue Albuterol Inhaler [Ventolin Hfa Inhaler] 1 puff INHALATION RT-QID PRN PRN Reason: Shortness Of Breath Or Wheezing Metoprolol Tartrate [Lopressor] 25 mg PO BID Mirtazapine 45 mg PO HS Omeprazole 20 mg PO DAILY PRN PRN Reason: GERD traMADol HCL 50 mg PO BID PRN PRN Reason: Pain Verapamil [Isoptin] 40 mg PO BID Tiotropium 2.5 Mcg/Puff [Spiriva Respimat 2.5 Mcg] 2 puff INHALATION RT-DAILY Fluticasone Nasal [place] [Flonase Nasal [place]] 1 spray EA NOSTRIL BID PRN PRN Reason: Allergy Symptoms Cetirizine HCl 10 mg PO DAILY PRN PRN Reason: Allergy Symptoms Calcium Carbonate/Vitamin D3 [Calcium 500 mg-Vit D3 5 mcg (200 Unit)] 3 tab PO DAILY Lactose-Reduced Food [Ensure Original] 1 dose PO TID Budesonide/Formoterol Fumarate [Symbicort 160-4.5 Mcg Inhaler] 2 puff INHALATION RT-BID Cyclobenzaprine [Flexeril] 5 mg PO BID PRN PRN Reason: Muscle Spasm Lidocaine 5% Patch [Lidoderm 5% Patch] 1 patch TOPICAL DAILY PRN PRN Reason: Pain Levothyroxine Sodium 25 mcg PO DAILY [id number]-[id number] [phone] [Excedrin] 1 tab PO Q4HR PRN PRN Reason: Pain Discontinued Famotidine [Pepcid] 20 mg PO BID PRN PRN Reason: Heartburn hydrOXYzine pamoate [hydrOXYzine PAMOATE] 25 mg PO BID PRN PRN Reason: ANXIETY/SLEEP Potassium Chloride ER [K-Dur 10] 10 meq PO DIRECTED PRN PRN Reason: when taking lasix No Action Nitrofurantoin Monohyd/M-Cryst [Macrobid] 100 mg PO Q12HR #14 cap Discharge Medication List Albuterol Inhaler [Ventolin Hfa Inhaler] 1 puff INHALATION RT-QID PRN 12/27/19 [History] Metoprolol Tartrate [Lopressor] 25 mg PO BID 12/27/19 [History] Mirtazapine 45 mg PO HS 12/27/19 [History] Omeprazole 20 mg PO DAILY PRN 12/27/19 [History] Verapamil [Isoptin] 40 mg PO BID 12/27/19 [History] traMADol HCL 50 mg PO BID PRN 12/27/19 [History] Budesonide/Formoterol Fumarate [Symbicort 160-4.5 Mcg Inhaler] 2 puff INHALATION RT-BID 07/03/20 [History] Cetirizine HCl 10 mg PO DAILY PRN 07/03/20 [History] Fluticasone Nasal [place] [Flonase Nasal [place]] 1 spray EA NOSTRIL BID PRN 07/03/20 [History] Tiotropium 2.5 Mcg/Puff [Spiriva Respimat 2.5 Mcg] 2 puff INHALATION RT-DAILY 07/03/20 [History] [id number] [phone] [Excedrin] 1 tab PO Q4HR PRN 08/21/20 [History] Calcium Carbonate/Vitamin D3 [Calcium 500 mg-Vit D3 5 mcg (200 Unit)] 3 tab PO DAILY 08/21/20 [History] Cyclobenzaprine [Flexeril] 5 mg PO BID PRN 08/21/20 [History] Lactose-Reduced Food [Ensure Original] 1 dose PO TID 08/21/20 [History] Levothyroxine Sodium 25 mcg PO DAILY 08/21/20 [History] Lidocaine 5% Patch [Lidoderm 5% Patch] 1 patch TOPICAL DAILY PRN 08/21/20 [History] Atorvastatin [Lipitor] 80 mg PO DAILY #30 tab 08/24/20 [Rx] Furosemide [Lasix] 20 mg PO DAILY #30 tab 08/24/20 [Rx] predniSONE 10 mg PO DAILY #30 tab 08/24/20 [Rx] Aspirin 81 mg PO DAILY 30 Days #30 chew 08/26/20 [Rx] Ipratropium-Albuterol Nebulize [Duoneb 0.5 mg-3 mg/3 ml Soln] 3 ml INHALATION RT-Q2H PRN ml 08/26/20 [Rx] Ipratropium-Albuterol Nebulize [Duoneb 0.5 mg-3 mg/3 ml Soln] 3 ml INHALATION RT-QID 30 Days #120 ml 08/26/20 [Rx] Magic Cup 1 each PO TID BETWEEN MEALS #30 dose 08/26/20 [Rx] Multivitamins, Thera [Multivitamin] 1 tab PO DAILY #30 tablet 08/26/20 [Rx] Nitrofurantoin Monohyd/M-Cryst [Macrobid] 100 mg PO Q12HR #14 cap 08/26/20 [Rx] Follow up Appointment(s)/Referral(s): Kacey Armenta MD [STAFF PHYSICIAN] - 09/03/20 1:00 pm (office cancelled 08/27/20 appointment to see patient on the ) Sonya Gonzalez MD [STAFF PHYSICIAN] - 1 Week (office didnt answer at this time, please call office to schedule follow up) Nurse,[facility]ach[facility] Visiting [NON-STAFF] - 3 Days Raeann Velazco [NON-STAFF] - As Needed (oxygen ) [facility] [Primary Care Provider] - 3 Days (office closed at this time - please call to arrange appointment ) Ambulatory/Diagnostic Orders: Basic Metabolic Panel [LAB.AMB] Time Frame: 2 Days, Location: None Selected Patient Instructions/Handouts: Heart Failure (DC), Using Oxygen at Home (DC) Activity/Diet/Wound Care/Special Instructions: Activity Limited until follow-up Follow up with primary care provider upon discharge Follow-up with pulmonary outpatient Follow-up cardiology outpatient Repeat labs to monitor kidney functions in 2-3 days Continue current medications Discharge Disposition: HOME WITH HOME HEALTH SERVICES
== END 2020-08-26 17:49 | disposition home health service (06) | DRG 281 ==
LOC: EC 17:20 → 3SCARD 20:49 → 4SSUR 08-25 10:53
PROVIDERS: ADMIT Hospitalist; ATTEND Hospitalist
DX: I11.0 Hypertensive heart disease with heart failure (principal); I21.4 Non-ST elevation (NSTEMI) myocardial infarction; J44.1 Chronic obstructive pulmonary disease with (acute) exacerbation; I31.3 Pericardial effusion (noninflammatory); I47.1 Supraventricular tachycardia; Z68.1 Body mass index [BMI] 19.9 or less, adult; I50.33 Acute on chronic diastolic (congestive) heart failure; F17.200 Nicotine dependence, unspecified, uncomplicated; I10 Essential (primary) hypertension; M54.9 Dorsalgia, unspecified; R60.0 Localized edema; Z79.899 Other long term (current) drug therapy; R00.0 Tachycardia, unspecified; R11.10 Vomiting, unspecified; R77.8 Other specified abnormalities of plasma proteins; E83.42 Hypomagnesemia; F32.9 Major depressive disorder, single episode, unspecified; R09.02 Hypoxemia; Z20.822 Contact with and (suspected) exposure to COVID-19; Z79.51 Long term (current) use of inhaled steroids; Z79.890 Hormone replacement therapy; J43.9 Emphysema, unspecified; I27.20 Pulmonary hypertension, unspecified; R63.6 Underweight; R13.10 Dysphagia, unspecified; M81.0 Age-related osteoporosis without current pathological fracture; Z98.84 Bariatric surgery status
CPT/HCPCS: 36415; 71045; 71275; 80048; 80053; 80061; 83735; 83880; 84443; 84484; 85025; 85379; 85610; 85730; 87635; 93005; 93306; 94640; 94660; 96361; 96365; 96375; 99285

== ENCOUNTER 2020-08-26 18:53 | Emergency (ER) | payer OTHER, MEDICARE ==
--- NOTE | 2020-08-26 19:31 | ED ---
General Adult HPI - General Stated complaint: swelling in abd Time Seen by Provider: 08/26/20 19:29 Source: patient, RN notes reviewed Mode of arrival: ambulatory Limitations: no limitations - History of Present Illness Initial comments: This is a 70-year-old female presents emergency Department with chief complaint abdominal swelling. Patient states this started when she was in the hospital. Patient was just discharged for CT exacerbation. Patient states she's had swelling in the past. Patient states started 2 days ago while she was in the hospital. She states it seemed to worsen when she was home. Patient states that she was placed on Lasix in the past for this. Patient states that she did receive some Lasix in emergency department. Patient offers no other complaints. - Related Data Home Medications Medication Instructions Recorded Confirmed Albuterol Inhaler [Ventolin Hfa 1 puff INHALATION RT-QID PRN 12/27/19 08/21/20 Inhaler] Metoprolol Tartrate [Lopressor] 25 mg PO BID 12/27/19 08/21/20 Mirtazapine 45 mg PO HS 12/27/19 08/21/20 Omeprazole 20 mg PO DAILY PRN 12/27/19 08/21/20 Verapamil [Isoptin] 40 mg PO BID 12/27/19 08/21/20 traMADol HCL 50 mg PO BID PRN 12/27/19 08/21/20 Budesonide/Formoterol Fumarate 2 puff INHALATION RT-BID 07/03/20 08/21/20 [Symbicort 160-4.5 Mcg Inhaler] Cetirizine HCl 10 mg PO DAILY PRN 07/03/20 08/21/20 Fluticasone Nasal [place] [Flonase 1 spray EA NOSTRIL BID PRN 07/03/20 08/21/20 Nasal [place]] Tiotropium 2.5 Mcg/Puff [Spiriva 2 puff INHALATION RT-DAILY 07/03/20 08/21/20 Respimat 2.5 Mcg] [id number] [id number] 1 tab PO Q4HR PRN 08/21/20 08/21/20 [Excedrin] Calcium Carbonate/Vitamin D3 3 tab PO DAILY 08/21/20 08/21/20 [Calcium 500 mg-Vit D3 5 mcg (200 Unit)] Cyclobenzaprine [Flexeril] 5 mg PO BID PRN 08/21/20 08/21/20 Lactose-Reduced Food [Ensure 1 dose PO TID 08/21/20 08/21/20 Original] Levothyroxine Sodium 25 mcg PO DAILY 08/21/20 08/21/20 Lidocaine 5% Patch [Lidoderm 5% 1 patch TOPICAL DAILY PRN 08/21/20 08/21/20 Patch] Previous Rx's Medication Instructions Recorded Atorvastatin [Lipitor] 80 mg PO DAILY #30 tab 08/24/20 Furosemide [Lasix] 20 mg PO DAILY #30 tab 08/24/20 predniSONE 10 mg PO DAILY #30 tab 08/24/20 Aspirin 81 mg PO DAILY 30 Days #30 chew 08/26/20 Ipratropium-Albuterol Nebulize 3 ml INHALATION RT-Q2H PRN ml 08/26/20 [Duoneb 0.5 mg-3 mg/3 ml Soln] Ipratropium-Albuterol Nebulize 3 ml INHALATION RT-QID 30 Days 08/26/20 [Duoneb 0.5 mg-3 mg/3 ml Soln] #120 ml Magic Cup 1 each PO TID BETWEEN MEALS #30 08/26/20 dose Multivitamins, Thera [Multivitamin] 1 tab PO DAILY #30 tablet 08/26/20 Nitrofurantoin Monohyd/M-Cryst 100 mg PO Q12HR #14 cap 08/26/20 [Macrobid] Allergies Allergy/AdvReac Type Severity Reaction Status Date / Time alendronate sodium Allergy Rash/Hives Verified 08/21/20 19:53 bupropion [From Wellbutrin] Allergy Unknown Verified 08/21/20 19:53 Review of Systems ROS Statement: Those systems with pertinent positive or pertinent negative responses have been documented in the HPI. ROS Other: All systems not noted in ROS Statement are negative. Past Medical History Past Medical History: COPD Additional Past Medical History / Comment(s): back pain, irreg heart rate, History of Any Multi-Drug Resistant Organisms: None Reported Past Surgical History: Tonsillectomy Additional Past Surgical History / Comment(s): Gastric bypass for an ulcer, cataract surgery both eyes. Past Anesthesia/Blood Transfusion Reactions: No Reported Reaction Past Psychological History: Depression Smoking Status: Current every day smoker Past Alcohol Use History: Rare Additional Past Alcohol Use History / Comment(s): Smokes less than a pack per day. Has recently smoked more in the last 2 weeks. Past Drug Use History: None Reported - Past Family History Mother Family Medical History: No Reported History Father Additional Family Medical History / Comment(s): Brain aneurysm General Exam General appearance: alert, in no apparent distress, cachectic Head exam: Present: atraumatic, normocephalic, normal inspection Eye exam: Present: normal appearance, PERRL, EOMI. Absent: scleral icterus, conjunctival injection, periorbital swelling ENT exam: Present: normal exam, mucous membranes moist Neck exam: Present: normal inspection. Absent: tenderness, meningismus, lymphadenopathy Respiratory exam: Present: normal lung sounds bilaterally. Absent: respiratory distress, wheezes, rales, rhonchi, stridor Cardiovascular Exam: Present: regular rate, normal rhythm, normal heart sounds. Absent: systolic murmur, diastolic murmur, rubs, gallop, clicks GI/Abdominal exam: Present: soft, normal bowel sounds. Absent: distended, tenderness, guarding, rebound, rigid Course Vital Signs 08/26/20 19:26 Temperature 98.3 F Pulse Rate 98 Respiratory 20 Rate Blood Pressure 129/92 O2 Sat by Pulse 93 L Oximetry Medical Decision Making - Medical Decision Making Patient was evaluated for which she reports abdominal swelling. There is no clear evidence of abdominal swelling the x-ray shows moderate constipation. Patient was given some mild fluid hydration and she did have slight elevation of kidney function. Patient has evidence of UTI was given Rocephin will be discharged in stable condition. - Lab Data Result diagrams: 08/26/20 21:25 08/26/20 21:25 Lab Results 08/26/20 08/26/20 08/26/20 Range/Units 21:25 21:25 21:25 WBC 12.1 H (3.8-10.6) k/uL RBC 4.79 (3.80-5.40) m/uL Hgb 13.7 (11.4-16.0) gm/dL Hct 42.6 (34.0-46.0) % MCV 88.9 (80.0-100.0) fL MCH 28.6 (25.0-35.0) pg MCHC 32.2 (31.0-37.0) g/dL RDW 18.6 H (11.5-15.5) % Plt Count 235 (150-450) k/uL MPV 8.1 Neutrophils % 93 % Lymphocytes % 2 % Monocytes % 3 % Eosinophils % 0 % Basophils % 0 % Neutrophils # 11.2 H (1.3-7.7) k/uL Lymphocytes # 0.2 L (1.0-4.8) k/uL Monocytes # 0.4 (0-1.0) k/uL Eosinophils # 0.0 (0-0.7) k/uL Basophils # 0.0 (0-0.2) k/uL Anisocytosis Slight PT 10.7 (9.0-12.0) sec INR 1.0 (<1.2) APTT 20.2 L (22.0-30.0) sec Sodium 138 (137-145) mmol/L Potassium 4.7 (3.5-5.1) mmol/L Chloride 100 (98-107) mmol/L Carbon Dioxide 33 H (22-30) mmol/L Anion Gap 5 mmol/L BUN 71 H (7-17) mg/dL Creatinine 1.40 H (0.52-1.04) mg/dL Est GFR (CKD-EPI)AfAm 44 (>60 ml/min/1.73 sqM) Est GFR (CKD-EPI)NonAf 38 (>60 ml/min/1.73 sqM) Glucose 129 H (74-99) mg/dL Calcium 9.2 (8.4-10.2) mg/dL Total Bilirubin 0.1 L (0.2-1.3) mg/dL AST 37 H (14-36) U/L ALT 32 (4-34) U/L Alkaline Phosphatase 138 H (38-126) U/L Total Protein 5.9 L (6.3-8.2) g/dL Albumin 3.4 L (3.5-5.0) g/dL Amylase 76 (30-110) U/L Lipase 56 (23-300) U/L Urine Color Urine Appearance (Clear) Urine pH (5.0-8.0) Ur Specific Goode (1.001-1.035) Urine Protein (Negative) Urine Glucose (UA) (Negative) Urine Ketones (Negative) Urine Blood (Negative) Urine Nitrite (Negative) Urine Bilirubin (Negative) Urine Urobilinogen (<2.0) mg/dL Ur Leukocyte Esterase (Negative) Urine RBC (0-5) /hpf Urine WBC (0-5) /hpf Ur Squamous Epith Cells (0-4) /hpf Urine Mucus (None) /hpf 08/26/20 Range/Units 21:49 WBC (3.8-10.6) k/uL RBC (3.80-5.40) m/uL Hgb (11.4-16.0) gm/dL Hct (34.0-46.0) % MCV (80.0-100.0) fL MCH (25.0-35.0) pg MCHC (31.0-37.0) g/dL RDW (11.5-15.5) % Plt Count (150-450) k/uL MPV Neutrophils % % Lymphocytes % % Monocytes % % Eosinophils % % Basophils % % Neutrophils # (1.3-7.7) k/uL Lymphocytes # (1.0-4.8) k/uL Monocytes # (0-1.0) k/uL Eosinophils # (0-0.7) k/uL Basophils # (0-0.2) k/uL Anisocytosis PT (9.0-12.0) sec INR (<1.2) APTT (22.0-30.0) sec Sodium (137-145) mmol/L Potassium (3.5-5.1) mmol/L Chloride (98-107) mmol/L Carbon Dioxide (22-30) mmol/L Anion Gap mmol/L BUN (7-17) mg/dL Creatinine (0.52-1.04) mg/dL Est GFR (CKD-EPI)AfAm (>60 ml/min/1.73 sqM) Est GFR (CKD-EPI)NonAf (>60 ml/min/1.73 sqM) Glucose (74-99) mg/dL Calcium (8.4-10.2) mg/dL Total Bilirubin (0.2-1.3) mg/dL AST (14-36) U/L ALT (4-34) U/L Alkaline Phosphatase (38-126) U/L Total Protein (6.3-8.2) g/dL Albumin (3.5-5.0) g/dL Amylase (30-110) U/L Lipase (23-300) U/L Urine Color Light Yellow Urine Appearance Clear (Clear) Urine pH 5.5 (5.0-8.0) Ur Specific Goode 1.020 (1.001-1.035) Urine Protein Trace H (Negative) Urine Glucose (UA) Negative (Negative) Urine Ketones Negative (Negative) Urine Blood Negative (Negative) Urine Nitrite Negative (Negative) Urine Bilirubin Negative (Negative) Urine Urobilinogen <2.0 (<2.0) mg/dL Ur Leukocyte Esterase Moderate H (Negative) Urine RBC 1 (0-5) /hpf Urine WBC 32 H (0-5) /hpf Ur Squamous Epith Cells <1 (0-4) /hpf Urine Mucus Rare H (None) /hpf Disposition Clinical Impression: UTI (urinary tract infection), Constipation Disposition: HOME SELF-CARE Condition: Stable Instructions (If sedation given, give patient instructions): Urinary Tract Infection in Women (ED), Constipation (ED) Additional Instructions: Please return to the Emergency Department if symptoms worsen or any other concerns. Prescriptions: Nitrofurantoin Monohyd/M-Cryst [Macrobid] 100 mg PO Q12HR #14 cap Is patient prescribed a controlled substance at d/c from ED?: No Referrals: [facility],Clinic [Primary Care Provider] - 1-2 days Time of Disposition: 22:46
[2020-08-26 19:32] VITALS: RESP 20; TEMP 98.3
[2020-08-26 21:34] LABS: Anisocytosis Slight; Basophils % (A) 0 %; Eosinophils % (A) 0 %; HCT 42.6 % (34.0-46.0); HGB 13.7 gm/dL (11.4-16.0); Lymphocytes # (A) 0.2 k/uL (1.0-4.8); Lymphocytes % (A) 2 %; MCH 28.6 pg (25.0-35.0); MCHC 32.2 g/dL (31.0-37.0); MCV 88.9 fL (80.0-100.0); Mean Platelet Volume 8.1; Monocytes # (A) 0.4 k/uL (0-1.0); Monocytes % (A) 3 %; Neutrophils # (A) 11.2 k/uL (1.3-7.7); Neutrophils % (A) 93 %; Platelet Count 235 k/uL (150-450); RBC 4.79 m/uL (3.80-5.40); RDW 18.6 % (11.5-15.5); WBC 12.1 k/uL (3.8-10.6)
[2020-08-26 21:51] LABS: Albumin 3.4 g/dL (3.5-5.0); Calcium 9.2 mg/dL (8.4-10.2); Potassium 4.7 mmol/L (3.5-5.1); Total Bilirubin 0.1 mg/dL (0.2-1.3); Total Protein 5.9 g/dL (6.3-8.2)
[2020-08-26 21:55] LABS: Partial Thromboplastin Time 20.2 sec (22.0-30.0); Prothrombin Time 10.7 sec (9.0-12.0)
[2020-08-26 22:07] LABS: Appearance,Urine Clear (Clear); Bilirubin,Urine Negative (Negative); Blood,Urine Negative (Negative); Color,Urine Light Yellow; Glucose,Urine (UA) Negative (Negative); Ketones,Urine Negative (Negative); Leukocyte Esterase,Urine Moderate (Negative); Mucus,Urine Rare /hpf; Nitrite,Urine Negative (Negative); PH, Urine 5.5 (5.0-8.0); Protein,Urine Trace (Negative); RBC,Urine 1 /hpf (0-5); Squamous Epithelial Cell,Urine <1 /hpf (0-4); Urobilinogen,Urine <2.0 mg/dL (<2.0); WBC,Urine 32 /hpf (0-5)
--- NOTE | 2020-08-26 22:30 | XR ---
EXAMINATION TYPE: XR KUB DATE OF EXAM: 08/26/2020 COMPARISON: NONE HISTORY: Abdominal pain TECHNIQUE: 2 views upright FINDINGS: There is some retained fecal material in the large bowel. There is no evidence of free air. There is blunting of the costophrenic angles. There are surgical clips in the upper abdomen. There i s gas down to the rectum. IMPRESSION: Mild constipation. Small pleural effusions appear increased compared to chest x-ray of 08/21/2020. No free air.
[2020-08-26] MEDS ORDERED: SODIUM CHLORIDE 0.9% 500 ML 500 ML IV ONE (22:43)
[2020-08-26] MEDS ORDERED: cefTRIAXone IN SWFI 1,000 MG/10 ML SYRINGE IVP STA (22:43)
[2020-08-26] MEDS ORDERED: MAGNESIUM CITRATE 296 ML BOTTLE PO ONE (22:56)
[2020-08-27 00:28] VITALS: BP 130/93; PULSE 60
== END 2020-08-26 23:58 | disposition home or self-care (01) ==
LOC: EC 18:53
DX: N39.0 Urinary tract infection, site not specified (principal); K59.00 Constipation, unspecified; R19.00 Intra-abdominal and pelvic swelling, mass and lump, unspecified site; J44.9 Chronic obstructive pulmonary disease, unspecified; F17.210 Nicotine dependence, cigarettes, uncomplicated; Z79.51 Long term (current) use of inhaled steroids; Z79.52 Long term (current) use of systemic steroids; Z79.82 Long term (current) use of aspirin; Z79.899 Other long term (current) drug therapy; Z98.84 Bariatric surgery status
CPT/HCPCS: 36415; 80053; 82150; 83690; 85025; 85610; 85730; 81001; 87086; 74018; 99283; 96374; 96361; J0696

== ENCOUNTER 2020-09-05 09:56 | Inpatient (IN) | payer OTHER, MEDICARE ==
[2020-09-05] MEDS ORDERED: IPRATROPIUM-ALBUTEROL 3 ML NEB INHALATION STA (10:06)
--- NOTE | 2020-09-05 10:12 | ED ---
Weakness HPI - General Stated complaint: weakness/dehydration Time Seen by Provider: 09/05/20 09:56 Source: patient, EMS, RN notes reviewed, old records reviewed Mode of arrival: EMS - History of Present Illness Initial comments: This is a 70-year-old female with a history of COPD with a recent admission for the same as well as CHF and NSTEMI who presents by EMS today with complaints of generalized weakness decreased oral intake and failure to thrive. Patient also states she does use home oxygen but is running out of it. No reports of fevers chills nausea vomiting sweats she was brought in for evaluation currently adult protective services are also involved in this patient's care. No reports of nausea vomiting fevers chills sweats no chest pain she denies shortness of breath though she did seem he has multiple wheezing upon evaluation. MD Complaint: generalized weakness - Related Data Home Medications Medication Instructions Recorded Confirmed Albuterol Inhaler [Ventolin Hfa 1 puff INHALATION RT-QID PRN 12/27/19 09/05/20 Inhaler] Metoprolol Tartrate [Lopressor] 25 mg PO BID 12/27/19 09/05/20 Mirtazapine 45 mg PO HS 12/27/19 09/05/20 Omeprazole 20 mg PO DAILY 12/27/19 09/05/20 Verapamil [Isoptin] 40 mg PO BID 12/27/19 09/05/20 Budesonide/Formoterol Fumarate 2 puff INHALATION RT-BID 07/03/20 09/05/20 [Symbicort 160-4.5 Mcg Inhaler] Fluticasone Nasal [place] [Flonase 1 spray EA NOSTRIL BID PRN 07/03/20 09/05/20 Nasal [place]] Tiotropium 2.5 Mcg/Puff [Spiriva 2 puff INHALATION RT-DAILY 07/03/20 09/05/20 Respimat 2.5 Mcg] [id number]-Hjgf-Sznj [phone] 1 tab PO Q4HR PRN 08/21/20 09/05/20 [Excedrin] Calcium Carbonate/Vitamin D3 3 tab PO DAILY 08/21/20 09/05/20 [Calcium 500 mg-Vit D3 5 mcg (200 Unit)] Cyclobenzaprine [Flexeril] 5 mg PO BID PRN 08/21/20 09/05/20 Lactose-Reduced Food [Ensure 1 can PO TID 08/21/20 09/05/20 Original] Levothyroxine Sodium 25 mcg PO DAILY 08/21/20 09/05/20 Lidocaine 5% Patch [Lidoderm 5% 1 patch TOPICAL DAILY PRN 08/21/20 09/05/20 Patch] Atorvastatin [Lipitor] 80 mg PO HS 09/05/20 09/05/20 Famotidine [Pepcid] 20 mg PO HS PRN 09/05/20 09/05/20 Potassium Chloride ER [K-Dur 10] 10 meq PO DAILY PRN 09/05/20 09/05/20 Varenicline [Chantix Starter Pack] 0.5 mg PO BID 09/05/20 09/05/20 hydrOXYzine pamoate [hydrOXYzine 25 mg PO BID PRN 09/05/20 09/05/20 PAMOATE] Previous Rx's Medication Instructions Recorded Furosemide [Lasix] 20 mg PO DAILY #30 tab 08/24/20 Allergies Allergy/AdvReac Type Severity Reaction Status Date / Time alendronate sodium Allergy Rash/Hives Verified 09/05/20 11:19 bupropion [From Wellbutrin] Allergy Unknown Verified 09/05/20 11:19 Review of Systems ROS Statement: Those systems with pertinent positive or pertinent negative responses have been documented in the HPI. ROS Other: All systems not noted in ROS Statement are negative. Past Medical History Past Medical History: COPD Additional Past Medical History / Comment(s): back pain, irreg heart rate, History of Any Multi-Drug Resistant Organisms: None Reported Past Surgical History: Tonsillectomy Additional Past Surgical History / Comment(s): Gastric bypass for an ulcer, cataract surgery both eyes. Past Anesthesia/Blood Transfusion Reactions: No Reported Reaction Past Psychological History: Depression Smoking Status: Current every day smoker Past Alcohol Use History: Rare Past Drug Use History: None Reported - Past Family History Mother Family Medical History: No Reported History Father Additional Family Medical History / Comment(s): Brain aneurysm General Exam - General Exam Comments Initial Comments: This a well-developed emaciated appearing female who is awake alert oriented 3 General appearance: alert, lethargic Head exam: Present: atraumatic, normocephalic, normal inspection Eye exam: Present: normal appearance, PERRL, EOMI. Absent: scleral icterus, conjunctival injection, periorbital swelling ENT exam: Present: mucous membranes dry Neck exam: Present: normal inspection. Absent: tenderness, meningismus, lymphadenopathy Respiratory exam: Present: wheezes, decreased breath sounds. Absent: respiratory distress, rales, rhonchi, stridor Cardiovascular Exam: Present: regular rate, normal rhythm, normal heart sounds. Absent: systolic murmur, diastolic murmur, rubs, gallop, clicks GI/Abdominal exam: Present: soft, normal bowel sounds. Absent: distended, tenderness, guarding, rebound, rigid Extremities exam: Present: normal inspection, full ROM, normal capillary refill. Absent: tenderness, pedal edema, joint swelling, calf tenderness Back exam: Present: normal inspection Neurological exam: Present: alert, oriented X3, CN II-XII intact Psychiatric exam: Present: normal affect, normal mood Skin exam: Present: warm, dry, intact, normal color. Absent: rash Course Vital Signs 09/05/20 09/05/20 09/05/20 09:59 10:55 11:06 Temperature 98.0 F Pulse Rate 58 L 104 H 101 H Respiratory 18 Rate Blood Pressure 116/79 O2 Sat by Pulse 100 Oximetry - Reevaluation(s) Reevaluation #1: 09/05/20 13:03 The patient did develop some retrosternal chest discomfort she was rubbing her chest make it go away EKG was done and showed evidence of ST elevation in leads II, III, and F aVF with evidence of anteroseptal injury 09/05/20 13:05 A STEMI alert is called Medical Decision Making - Medical Decision Making A STEMI alert was called as the patient started developing chest pain he has EKG evidence of acute SC. Dr. Mejia will be admitting physician. Patient will go to [facility]. - Lab Data Result diagrams: 09/05/20 10:56 09/05/20 10:56 Lab Results 09/05/20 09/05/20 Range/Units 10:56 10:56 WBC 17.6 H (3.8-10.6) k/uL RBC 4.44 (3.80-5.40) m/uL Hgb 12.9 (11.4-16.0) gm/dL Hct 40.2 (34.0-46.0) % MCV 90.5 (80.0-100.0) fL MCH 29.1 (25.0-35.0) pg MCHC 32.2 (31.0-37.0) g/dL RDW 17.9 H (11.5-15.5) % Plt Count 313 (150-450) k/uL MPV 8.0 Neutrophils % 95 % Lymphocytes % 1 % Monocytes % 4 % Eosinophils % 0 % Basophils % 0 % Neutrophils # 16.7 H (1.3-7.7) k/uL Lymphocytes # 0.1 L (1.0-4.8) k/uL Monocytes # 0.7 (0-1.0) k/uL Eosinophils # 0.0 (0-0.7) k/uL Basophils # 0.0 (0-0.2) k/uL Hypochromasia Slight Anisocytosis Slight Sodium 139 (137-145) mmol/L Potassium 4.3 (3.5-5.1) mmol/L Chloride 92 L (98-107) mmol/L Carbon Dioxide 32 H (22-30) mmol/L Anion Gap 15 mmol/L BUN 75 H (7-17) mg/dL Creatinine 1.71 H (0.52-1.04) mg/dL Est GFR (CKD-EPI)AfAm 34 (>60 ml/min/1.73 sqM) Est GFR (CKD-EPI)NonAf 30 (>60 ml/min/1.73 sqM) Glucose 199 H (74-99) mg/dL Calcium 9.9 (8.4-10.2) mg/dL Magnesium 2.2 (1.6-2.3) mg/dL Total Bilirubin 0.6 (0.2-1.3) mg/dL AST 40 H (14-36) U/L ALT 30 (4-34) U/L Alkaline Phosphatase 126 (38-126) U/L Creatine Kinase 62 (30-135) U/L Total Protein 6.3 (6.3-8.2) g/dL Albumin 3.8 (3.5-5.0) g/dL Lipase 32 (23-300) U/L TSH 4.570 (0.465-4.680) mIU/L - EKG Data -: EKG Interpreted by Nm EKG shows normal: sinus rhythm EKG Comments: EKG shows sinus tachycardia rate of 112. Interval 112 QRS 76 QT since QTC 3:30/461 right atrial enlargement PACs ST elevation in the inferior leads with anteroseptal endocardial injury pattern noted. Is different than 08/21/20 - Radiology Data Radiology results: report reviewed (Imaging reviewed evidence of chronic changes), image reviewed Critical Care Time Critical Care Time: Yes Total Critical Care Time: 37 Critical Care Time: Critical care time includes initial presentation with history physical. Paramedics upon arrival review of old charts available the PE evaluation the patient discussed with patient regarding the new findings discussion with marketing automation specialist with Dr. Mejia. Initial admission orders documentation of the above. Disposition Clinical Impression: AMI inferior wall, COPD exacerbation, Failure to thrive, Acute kidney injury Disposition: ADMITTED IP TO THIS HOSP Condition: Serious Referrals: [facility],Clinic [Primary Care Provider] - 1-2 days
[2020-09-05 11:31] LABS: Anisocytosis Slight; Basophils % (A) 0 %; Eosinophils % (A) 0 %; HCT 40.2 % (34.0-46.0); HGB 12.9 gm/dL (11.4-16.0); Hypochromasia Slight; Lymphocytes # (A) 0.1 k/uL (1.0-4.8); Lymphocytes % (A) 1 %; MCH 29.1 pg (25.0-35.0); MCHC 32.2 g/dL (31.0-37.0); MCV 90.5 fL (80.0-100.0); Monocytes # (A) 0.7 k/uL (0-1.0); Monocytes % (A) 4 %; Neutrophils # (A) 16.7 k/uL (1.3-7.7); Neutrophils % (A) 95 %; Platelet Count 313 k/uL (150-450); RBC 4.44 m/uL (3.80-5.40); RDW 17.9 % (11.5-15.5); WBC 17.6 k/uL (3.8-10.6)
[2020-09-05 11:46] LABS: Albumin 3.8 g/dL (3.5-5.0); Calcium 9.9 mg/dL (8.4-10.2); Magnesium 2.2 mg/dL (1.6-2.3); Potassium 4.3 mmol/L (3.5-5.1); Total Bilirubin 0.6 mg/dL (0.2-1.3); Total Protein 6.3 g/dL (6.3-8.2)
--- NOTE | 2020-09-05 11:59 | XR ---
EXAMINATION TYPE: XR chest 2V DATE OF EXAM: 09/05/2020 COMPARISON: 09-09 TECHNIQUE: PA and lateral views submitted. HISTORY: Chest pain FINDINGS: The lungs are clear and there is no pneumothorax, pleural effusion, or focal pneumonia. Hyperinflat ion compatible COPD there is multilevel degenerative disc disease. Coarsened interstitium is suggesti ve of chronic interstitial lung disease and stable. Biapical pleural thickening. No pleural effusion. Scoliosis and degenerative changes of the spine with a chronic appearing compression deformity in th e midthoracic region. Surgical changes in the epigastrium. IMPRESSION: 1. COPD correlate for chronic interstitial lung disease..
[2020-09-05] MEDS ORDERED: LIDOCAINE 1% INJ 10MG/ML (20 ML MDV) ONE (13:08)
[2020-09-05] MEDS ORDERED: VERAPAMIL 2.5 MG/ML 2 ML AMP ONE (13:08)
[2020-09-05] MEDS ORDERED: ASPIRIN 81 MG PO STA (13:11)
[2020-09-05] MEDS ORDERED: HEPARIN SODIUM 1,000 UN/ML (10ML VL) IV ONE ×3 (13:11→13:42)
[2020-09-05] MEDS ORDERED: NITROGLYCERIN SL TABS 0.4 MG TAB SUBLINGUAL PRN (13:16)
[2020-09-05] MEDS ORDERED: HEPARIN SODIUM 1,000 UN/ML (10ML VL) ONE (13:31)
[2020-09-05] MEDS ORDERED: fentaNYL (PF) 50 MCG/ML 2 ML AMP ONE (13:31)
[2020-09-05] MEDS ORDERED: MIDAZOLAM 2 MG/2 ML VIAL IVP ONE (13:35)
[2020-09-05] MEDS ORDERED: LIDOCAINE 1% INJ 10MG/ML (20 ML MDV) SQ ONE (13:35)
[2020-09-05] MEDS ORDERED: CLOPIDOGREL 75 MG TAB ONE (13:43)
[2020-09-05] MEDS ORDERED: hydrOXYzine pamoate 25 MG CAP PO PRN (13:46)
[2020-09-05] MEDS ORDERED: FAMOTIDINE 20 MG TAB PO PRN (13:46)
[2020-09-05] MEDS ORDERED: CYCLOBENZAPRINE 5 MG TAB PO PRN (13:46)
[2020-09-05] MEDS ORDERED: IV FLUID CONTINUATION 1,000 ML IV ONE (13:47)
--- NOTE | 2020-09-05 13:47 | P.CRDCN ---
History of Present Illness History of present illness: HISTORY OF PRESENTING ILLNESS This is a pleasant 70-year-old female past medical history significant for COPD, hypertension and chronic nicotine dependence. She follows in the off ice with Dr. Andrews. She was sent into the hospital by home health care nurse for concerns about on safe living environment. On arrival to the emergency department an EKG was obtained revealing ST elevation inferiorly with diffuse ST depression noted in the precordial leads heart rate of 112. She initially was not complaining of chest discomfort however once prompted after EKG if she is having chest pain and she said "oh yeah" she denies shortness of breath, dizziness or palpitations. Chest x-ray reveals underlying COPD. Laboratory data reviewed, WBC 17.6, hemoglobin 12.9, platelets 313, sodium 139, potassium 4.3, creatinine 1.71, magnesium 2.2 and TSH 4.57. Current daily cardiac medica tions include verapamil 40 mg twice a day, Lopressor 25 mg twice a day, Lasix 20 mg daily, atorvastatin 80 mg daily. She was here earlier this month and evaluated by us for symptoms of chest discomfort. At that time she was also having an acute exacerbation of COPD. Echocardiogram obtained revealed preserved LV systolic function with ejection fraction 50-55%, mild MR, mild TR and moderate pulmonary hypertension with an RVSP of 49 mmHg. REVIEW OF SYSTEMS At the time of my exam: CONSTITUTIONAL: Denies fever or chills. CARDIOVASCULAR: Complains of chest pain. Denies shortness of breath, orthopnea, PND or palpitations. RESPIRATORY: Denies cough. GASTROINTESTINAL: Denies abdominal pain, diarrhea, constipation, nausea or vomiting. MUSCULOSKELETAL: Denies myalgias. NEUROLOGIC: Denies numbness, tingling, headacbe or weakness. ENDOCRINE: Denies fatigue, weight change, polydipsia or polyurina. GENITOURINARY: Denies burning, hematuria or urgency with micturation. HEMATOLOGIC: Denies history of anemia or bleeding. PHYSICAL EXAMINATION Blood pressure 116/79 heart rate 101 afebrile and maintaining oxygen saturation on nasal cannula. CONSTITUTIONAL: No apparent distress. Frail. HEENT: Head is normocephalic. Pupils are equal, round. Sclerae anicteric. Mucous membranes of the mouth are moist. No JVD. No carotid bruit. CHEST EXAMINATION: Lungs are clear to auscultation. No chest wall tenderness is noted on palpation or with deep breathing. HEART EXAMINATION: Regular rate and rhythm. S1, S2 heard. No murmurs, gallops or rub. ABDOMEN: Soft, nontender. Positive bowel sounds. EXTREMITIES: Faint bilateral pedal peripheral pulses, no lower extremity edema and no calf tenderness. NEUROLOGIC EXAMINATION: Patient is awake, alert and oriented. ASSESSMENT STEMI Leuckocytosis Acute kidney injury COPD Hypertension Frail, BMI 12 PLAN Proceed with cardiac catheterization. Give heparin bolus and aspirin 324 mg. I have discussed the risks, benefits and alternative therapies for the above- mentioned procedure and for both sedation/analgesia as well as necessary blood product administration, if indicated, as they pertain to this patient. The patient has indicated understanding and acceptance of the risks and procedures discussed. Questions have been answered properly and she is agreeable to move forward with the above stated procedure. Her niece has been contacted and updated as to the plan of care. Further recommendations to follow based upon clinical course. Thank you kindly for this consultation. Nurse Practitioner note has been reviewed, I agree with a documented findings and plan of care. Patient was seen and examined. Past Medical History Past Medical History: COPD Additional Past Medical History / Comment(s): back pain, irreg heart rate, History of Any Multi-Drug Resistant Organisms: None Reported Past Surgical History: Tonsillectomy Additional Past Surgical History / Comment(s): Gastric bypass for an ulcer, cataract surgery both eyes. Past Anesthesia/Blood Transfusion Reactions: No Reported Reaction Past Psychological History: Depression Smoking Status: Current every day smoker Past Alcohol Use History: Rare Past Drug Use History: None Reported - Past Family History Mother Family Medical History: No Reported History Father Additional Family Medical History / Comment(s): Brain aneurysm Medications and Allergies Home Medications Medication Instructions Recorded Confirmed Type Albuterol Inhaler [Ventolin Hfa 1 puff INHALATION RT-QID PRN 12/27/19 09/05/20 History Inhaler] Metoprolol Tartrate [Lopressor] 25 mg PO BID 12/27/19 09/05/20 History Mirtazapine 45 mg PO HS 12/27/19 09/05/20 History Omeprazole 20 mg PO DAILY 12/27/19 09/05/20 History Verapamil [Isoptin] 40 mg PO BID 12/27/19 09/05/20 History Budesonide/Formoterol Fumarate 2 puff INHALATION RT-BID 07/03/20 09/05/20 History [Symbicort 160-4.5 Mcg Inhaler] Fluticasone Nasal Ferdinand [Flonase 1 spray EA NOSTRIL BID PRN 07/03/20 09/05/20 History Nasal Ferdinand] Tiotropium 2.5 Mcg/Puff [Spiriva 2 puff INHALATION RT-DAILY 07/03/20 09/05/20 History Respimat 2.5 Mcg] [id number] 1 tab PO Q4HR PRN 08/21/20 09/05/20 History [Excedrin] Calcium Carbonate/Vitamin D3 3 tab PO DAILY 08/21/20 09/05/20 History [Calcium 500 mg-Vit D3 5 mcg (200 Unit)] Cyclobenzaprine [Flexeril] 5 mg PO BID PRN 08/21/20 09/05/20 History Lactose-Reduced Food [Ensure 1 can PO TID 08/21/20 09/05/20 History Original] Levothyroxine Sodium 25 mcg PO DAILY 08/21/20 09/05/20 History Lidocaine 5% Patch [Lidoderm 5% 1 patch TOPICAL DAILY PRN 08/21/20 09/05/20 History Patch] Furosemide [Lasix] 20 mg PO DAILY #30 tab 08/24/20 09/05/20 Rx Atorvastatin [Lipitor] 80 mg PO HS 09/05/20 09/05/20 History Famotidine [Pepcid] 20 mg PO HS PRN 09/05/20 09/05/20 History Potassium Chloride ER [K-Dur 10] 10 meq PO DAILY PRN 09/05/20 09/05/20 History Varenicline [Chantix Starter Pack] 0.5 mg PO BID 09/05/20 09/05/20 History hydrOXYzine pamoate [hydrOXYzine 25 mg PO BID PRN 09/05/20 09/05/20 History PAMOATE] Allergies Allergy/AdvReac Type Severity Reaction Status Date / Time alendronate sodium Allergy Rash/Hives Verified 09/05/20 11:19 bupropion [From Wellbutrin] Allergy Unknown Verified 09/05/20 11:19 Physical Exam Vitals: Vital Signs Temp Pulse Resp BP Pulse Ox 09/05/20 11:06 101 H 09/05/20 10:55 104 H 09/05/20 09:59 98.0 F 58 L 18 116/79 100 Intake and Output 09/04/20 09/05/20 09/05/20 22:59 06:59 14:59 Other: Weight 31.298 kg Results 09/05/20 10:56 09/05/20 10:56 Cardiac Enzymes 09/05/20 Range/Units 10:56 AST 40 H (14-36) U/L CBC 09/05/20 Range/Units 10:56 WBC 17.6 H (3.8-10.6) k/uL RBC 4.44 (3.80-5.40) m/uL Hgb 12.9 (11.4-16.0) gm/dL Hct 40.2 (34.0-46.0) % Plt Count 313 (150-450) k/uL Comprehensive Metabolic Panel 09/05/20 Range/Units 10:56 Sodium 139 (137-145) mmol/L Potassium 4.3 (3.5-5.1) mmol/L Chloride 92 L (98-107) mmol/L Carbon Dioxide 32 H (22-30) mmol/L BUN 75 H (7-17) mg/dL Creatinine 1.71 H (0.52-1.04) mg/dL Glucose 199 H (74-99) mg/dL Calcium 9.9 (8.4-10.2) mg/dL AST 40 H (14-36) U/L ALT 30 (4-34) U/L Alkaline Phosphatase 126 (38-126) U/L Total Protein 6.3 (6.3-8.2) g/dL Albumin 3.8 (3.5-5.0) g/dL Current Medications Generic Name Dose Route Start Last Admin Trade Name Freq PRN Reason Stop Dose Admin Aspirin 325 mg 09/06/20 09:00 Aspirin 325 Mg Tab PO DAILY DELROY Nitroglycerin 0.4 mg 09/05/20 13:16 Nitroglycerin Sl Tabs 0.4 Mg Tab SUBLINGUAL Q5M PRN Chest Pain Intake and Output 09/04/20 09/05/20 09/05/20 22:59 06:59 14:59 Other: Weight 31.298 kg Patient Weight 09/06/20 06:59 Weight 31.298 kg 09/05/20 10:56 09/05/20 10:56
[2020-09-05] MEDS ORDERED: LIDOCAINE 5% PATCH TOPICAL PRN (13:50)
[2020-09-05] MEDS ORDERED: IPRATROPIUM-ALBUTEROL 3 ML NEB INHALATION PRN (13:50)
[2020-09-05] MEDS ORDERED: ATROPINE SULFATE 0.1 MG/ML 10ML SYRINGE IV PRN (13:53)
[2020-09-05] MEDS ORDERED: MAG HYDROX/AL HYDROX/SIMETH 30 ML CUP PO PRN (13:53)
[2020-09-05] MEDS ORDERED: RX INFO: IV CONTRAST WAS GIVEN 1 EACH MISC MISCELLANE PRN (13:53)
[2020-09-05] MEDS ORDERED: CLOPIDOGREL 75 MG TAB PO ONE (13:55)
--- NOTE | 2020-09-05 13:55 | P.HPIM ---
History of Present Illness Patient is a pleasant 70-year-old female came in with the complaints of unsafe living environment was born in now by [facility], home health care nurse. Patient is found to have ST elevations in inferior leads patient denied any chest pain at this time denies any shortness of breath dizziness palpitations diaphoresis. Patient is going to Live at this time patient has significant ST elevations in the inferior leads. Chest x-ray showed COPD patient is wheezing on exam patient does have history of COPD does use 3 L of oxygen at home. Continues to smoke. Patient had normal ejection fraction in the past with the moderate pulmonary hypertension number right ventricular systolic pressure 49. Review of Systems REVIEW OF SYSTEMS: CONSTITUTIONAL: No fever, no malaise, no fatigue. HEENT: No recent visual problems or hearing problems. Denied any sore throat. CARDIOVASCULAR: No orthopnea, PND, no palpitations, no syncope. PULMONARY:no cough, no hemoptysis. GASTROINTESTINAL: No diarrhea, no nausea, no vomiting, no abdominal pain. NEUROLOGICAL: No headaches, no weakness, no numbness. HEMATOLOGICAL: Denies any bleeding or petechiae. GENITOURINARY: Denies any burning micturition, frequency, or urgency. MUSCULOSKELETAL/RHEUMATOLOGICAL: Denies any joint pain, swelling, or any muscle pain. ENDOCRINE: Denies any polyuria or polydipsia. The rest of the 14-point review of systems is negative. Past Medical History Past Medical History: COPD Additional Past Medical History / Comment(s): back pain, irreg heart rate, History of Any Multi-Drug Resistant Organisms: None Reported Past Surgical History: Tonsillectomy Additional Past Surgical History / Comment(s): Gastric bypass for an ulcer, cataract surgery both eyes. Past Anesthesia/Blood Transfusion Reactions: No Reported Reaction Past Psychological History: Depression Smoking Status: Current every day smoker Past Alcohol Use History: Rare Past Drug Use History: None Reported - Past Family History Mother Family Medical History: No Reported History Father Additional Family Medical History / Comment(s): Brain aneurysm Medications and Allergies Home Medications Medication Instructions Recorded Confirmed Type Albuterol Inhaler [Ventolin Hfa 1 puff INHALATION RT-QID PRN 12/27/19 09/05/20 History Inhaler] Metoprolol Tartrate [Lopressor] 25 mg PO BID 12/27/19 09/05/20 History Mirtazapine 45 mg PO HS 12/27/19 09/05/20 History Omeprazole 20 mg PO DAILY 12/27/19 09/05/20 History Verapamil [Isoptin] 40 mg PO BID 12/27/19 09/05/20 History Budesonide/Formoterol Fumarate 2 puff INHALATION RT-BID 07/03/20 09/05/20 History [Symbicort 160-4.5 Mcg Inhaler] Fluticasone Nasal [place] [Flonase 1 spray EA NOSTRIL BID PRN 07/03/20 09/05/20 History Nasal [place]] Tiotropium 2.5 Mcg/Puff [Spiriva 2 puff INHALATION RT-DAILY 07/03/20 09/05/20 History Respimat 2.5 Mcg] [id number] [id number] 1 tab PO Q4HR PRN 08/21/20 09/05/20 History [Excedrin] Calcium Carbonate/Vitamin D3 3 tab PO DAILY 08/21/20 09/05/20 History [Calcium 500 mg-Vit D3 5 mcg (200 Unit)] Cyclobenzaprine [Flexeril] 5 mg PO BID PRN 08/21/20 09/05/20 History Lactose-Reduced Food [Ensure 1 can PO TID 08/21/20 09/05/20 History Original] Levothyroxine Sodium 25 mcg PO DAILY 08/21/20 09/05/20 History Lidocaine 5% Patch [Lidoderm 5% 1 patch TOPICAL DAILY PRN 08/21/20 09/05/20 History Patch] Furosemide [Lasix] 20 mg PO DAILY #30 tab 08/24/20 09/05/20 Rx Atorvastatin [Lipitor] 80 mg PO HS 09/05/20 09/05/20 History Famotidine [Pepcid] 20 mg PO HS PRN 09/05/20 09/05/20 History Potassium Chloride ER [K-Dur 10] 10 meq PO DAILY PRN 09/05/20 09/05/20 History Varenicline [Chantix Starter Pack] 0.5 mg PO BID 09/05/20 09/05/20 History hydrOXYzine pamoate [hydrOXYzine 25 mg PO BID PRN 09/05/20 09/05/20 History PAMOATE] Allergies Allergy/AdvReac Type Severity Reaction Status Date / Time alendronate sodium Allergy Rash/Hives Verified 09/05/20 11:19 bupropion [From Wellbutrin] Allergy Unknown Verified 09/05/20 11:19 Physical Exam Vitals: Vital Signs Temp Pulse Resp BP Pulse Ox 09/05/20 11:06 101 H 09/05/20 10:55 104 H 09/05/20 09:59 98.0 F 58 L 18 116/79 100 Intake and Output 09/04/20 09/05/20 09/05/20 22:59 06:59 14:59 Other: Weight 31.298 kg PHYSICAL EXAMINATION: GENERAL: The patient is alert and oriented x3, not in any acute distress. Thin built cachectic female HEENT: Pupils are round and equally reacting to light. EOMI. No scleral icterus. No conjunctival pallor. Normocephalic, atraumatic. No pharyngeal erythema. No thyromegaly. CARDIOVASCULAR: S1 and S2 present. No murmurs, rubs, or gallops. PULMONARY: Expiratory wheezing on exam ABDOMEN: Soft, nontender, nondistended, normoactive bowel sounds. No palpable organomegaly. MUSCULOSKELETAL: No joint swelling or deformity. EXTREMITIES: No cyanosis, clubbing, or pedal edema. NEUROLOGICAL: Gross neurological examination did not reveal any focal deficits. SKIN: No rashes. Results CBC & Chem 7: 09/05/20 10:56 09/05/20 10:56 Labs: Abnormal Lab Results - Last 24 Hours (Table) 09/05/20 09/05/20 Range/Units 10:56 10:56 WBC 17.6 H (3.8-10.6) k/uL RDW 17.9 H (11.5-15.5) % Neutrophils # 16.7 H (1.3-7.7) k/uL Lymphocytes # 0.1 L (1.0-4.8) k/uL Chloride 92 L (98-107) mmol/L Carbon Dioxide 32 H (22-30) mmol/L BUN 75 H (7-17) mg/dL Creatinine 1.71 H (0.52-1.04) mg/dL Glucose 199 H (74-99) mg/dL AST 40 H (14-36) U/L Assessment and Plan Plan: -Acute inferior wall ST elevation myocardial infarction: Patient was started on heparin patient is going to Lab emergently at this time. I'll increase the beta sanjana to 50 twice a day and discontinue verapamil. -COPD with mild acute exacerbation patient will be started on inhalational treatments and the inhalational steroids -Acute renal failure renal azotemia patient will be started on IV fluids. Patient baseline creatinine is around 1.1 1.2 -Chronic kidney disease stage III from hypertensive nephrosclerosis -Hypertension -Mild protein calorie malnutrition thin built female. -Continued nicotine use: Counseling was provided 1 she comes back from [employer]\ -Gastroesophageal reflux disease continue Pepcid
[2020-09-05] MEDS ORDERED: IOPAMIDOL-370 125ML BTL INJ ONE (13:56)
[2020-09-05 14:37] LABS: Glucose,Whole Blood 135 mg/dL (75-99)
[2020-09-05] MEDS: SODIUM CHLORIDE 0.9% 1,000 ML IV SCH (14:37)
[2020-09-05] MEDS ORDERED: METOPROLOL TARTRATE 50 MG TAB PO STA (14:40)
[2020-09-05] MEDS: lisinopriL 5 MG TAB PO SCH (14:59)
[2020-09-05] MEDS: IPRATROPIUM-ALBUTEROL 3 ML NEB INHALATION SCH ×2 (15:14→19:55)
[2020-09-05] MEDS ORDERED: LACTOSE REDUCED FOOD 400 GM PO SCH (16:00)
[2020-09-05 16:25] LABS: Calcium 8.4 mg/dL (8.4-10.2); Potassium 3.5 mmol/L (3.5-5.1)
[2020-09-05] MEDS ORDERED: SODIUM CHLORIDE 0.9% 1,000 ML IV ONE (18:55)
[2020-09-05] MEDS: SYMBICORT 160-4.5 MCG INHALER INHALATION SCH (19:55)
[2020-09-05] MEDS: METOPROLOL TARTRATE 25 MG TAB PO SCH (20:33)
[2020-09-05 20:48] LABS: Anisocytosis Slight; Basophils % (A) 0 %; Eosinophils % (A) 0 %; HCT 30.5 % (34.0-46.0); Hypochromasia Moderate; Lymphocytes # (A) 0.3 k/uL (1.0-4.8); Lymphocytes % (A) 2 %; MCH 28.1 pg (25.0-35.0); MCHC 30.5 g/dL (31.0-37.0); Mean Platelet Volume 7.7; Monocytes # (A) 0.6 k/uL (0-1.0); Monocytes % (A) 3 %; Neutrophils # (A) 16.5 k/uL (1.3-7.7); Neutrophils % (A) 94 %; Platelet Count 228 k/uL (150-450); RBC 3.31 m/uL (3.80-5.40); WBC 17.6 k/uL (3.8-10.6)
[2020-09-05 20:58] LABS: HGB 9.3 gm/dL (11.4-16.0)
[2020-09-05] MEDS ORDERED: VERAPAMIL 40 MG TAB PO SCH (21:00)
--- NOTE | 2020-09-05 21:12 | CC ---
CARDIAC CATHETERIZATION REPORT DATE OF SERVICE: September 05, 2020 PERFORMING PHYSICIAN: Brian Nicolas MD. PROCEDURE PERFORMED: 1. Selective left and right coronary angiogram. 2. Successful stenting of the mid right coronary artery using 2.75 x 18 mm Xience drug- eluting stent with excellent angiographic results and reduction of stenosis from 100% to 0%. 3. Left heart catheterization. 4. Selective right common femoral artery angiogram. INDICATION: This is a 70-year-old female patient who presented to the hospital with chest discomfort and was found to be in acute inferior ST-elevation myocardial infarction. For that reason, an emergent heart catheterization was advised. APPROACH: Right common femoral artery. COMPLICATION: None. LEVEL OF SEDATION: Moderate with sedation length of 18 minutes. PROCEDURE DESCRIPTION: After obtaining informed consent, the patient was brought to cardiac tender labor. The right common femoral artery was cannulated using micropuncture technique and a micropuncture wire passed easily. Then I placed a 6-Grenadian sheath. Selective left and right coronary angiogram performed using JL 3.5 diagnostic and JR 3.5 guide. After that, I did intervene on the RCA. Please see a separate paragraph for that. Subsequently I did leave heart catheterization using 6-Grenadian pigtail catheter. The procedure was completed without any complication. SELECTIVE CORONARY ANGIOGRAM: 1. The left main is angiographically normal. It bifurcates into LCX and LAD. 2. The LCX is a moderate caliber vessel. It is a nondominant vessel. It does have mild to moderate disease and gives rise into an OM1 which appeared to be angiographically normal. 3. The LAD is a large caliber vessel. The proximal LAD is angiographically normal and gives rise into a large diagonal branch which has a tight lesion. The mid LAD appeared to be normal and the LAD distally appeared to have intermediate to severe lesion by the apical area. 4. 5. The RCA is 100% occluded in the midportion with a thrombotic lesion. PCI OF THE RCA: Anticoagulation was achieved using heparin. Subsequently I did engage the RCA using JR 3.5 guide. I did cross the lesion using a run-through wire. PTCA ballooning was performed using 2.5 x 12 mm balloon before I deployed 2.75 x 18 mm Xience CARISSA where the stent was positioned under fluoroscopy guidance and deployed under 18 atmospheres for 20 seconds with the following angiogram showing excellent angiographic results with AISHWARYA-3 flow and without any complication. HEMODYNAMICS: The LVEDP was 20 mmHg without significant gradient across aortic valve. CONCLUSION: 1. Acute inferior ST-elevation myocardial infarction. 2. Acute total occlusion of the mid RCA with a thrombotic lesion. 3. Successful stenting of the mid RCA as described above. 4. Severe disease involving a large first diagonal branch of the LAD. 5. Elevated filling pressure. POSTPROCEDURE MANAGEMENT: 1. Dual anti-platelet therapy. 2. Anti-ischemic medications. 3. High-intensity statin. 4. Probably diuretics as well. 5. An echocardiogram to establish LV function. 6. Follow up with the patient. MMODL / IJN: [id number] /
[2020-09-05] MEDS: ATORVASTATIN 80 MG TAB PO SCH (22:33)
[2020-09-05] MEDS: MIRTAZAPINE 45 MG TABLET PO SCH (22:33)
[2020-09-06 02:38] LABS: Appearance,Urine Cloudy (Clear); Bilirubin,Urine Negative (Negative); Blood,Urine Large (Negative); Color,Urine Yellow; Glucose,Urine (UA) Negative (Negative); Ketones,Urine Negative (Negative); Leukocyte Esterase,Urine Negative (Negative); Mucus,Urine Rare /hpf; Nitrite,Urine Negative (Negative); PH, Urine 5.5 (5.0-8.0); Protein,Urine 1+ (Negative); RBC,Urine 57 /hpf (0-5); Specific Gravity,Urine 1.028 (1.001-1.035); Squamous Epithelial Cell,Urine <1 /hpf (0-4); Urobilinogen,Urine <2.0 mg/dL (<2.0); WBC,Urine 11 /hpf (0-5)
[2020-09-06 02:41] LABS: Amphetamine Screen,Urine Not Detected (NotDetected); Barbiturate Screen,Urine Not Detected (NotDetected); Benzodiazepines Screen,Urine Not Detected (NotDetected); Cocaine Screen,Urine Not Detected (NotDetected); Methadone Screen, Urine Not Detected (NotDetected); Opiate Screen,Urine Not Detected (NotDetected); Oxycodone Screen, Urine Not Detected (NotDetected); Phencyclidine Screen,Urine Not Detected (NotDetected); Tricyclic Antidepressant,Urine Not Detected (NotDetected); Urn Cannabinoid Scrn Not Detected (NotDetected)
[2020-09-06] MEDS: SODIUM CHLORIDE 0.9% 1,000 ML IV SCH ×2 (03:26→16:30)
[2020-09-06] MEDS: LEVOTHYROXINE 25 MCG TAB PO SCH (06:26)
[2020-09-06] MEDS: SYMBICORT 160-4.5 MCG INHALER INHALATION SCH ×2 (07:34→19:27)
[2020-09-06] MEDS: IPRATROPIUM-ALBUTEROL 3 ML NEB INHALATION SCH ×4 (07:34→19:27)
[2020-09-06 08:22] LABS: Anisocytosis Slight; Basophils % (A) 0 %; Eosinophils % (A) 0 %; HCT 48.7 % (34.0-46.0); Hypochromasia Slight; Lymphocytes # (A) 0.2 k/uL (1.0-4.8); Lymphocytes % (A) 1 %; MCH 27.8 pg (25.0-35.0); MCHC 30.2 g/dL (31.0-37.0); MCV 92.2 fL (80.0-100.0); Mean Platelet Volume 7.9; Monocytes # (A) 0.7 k/uL (0-1.0); Monocytes % (A) 4 %; Neutrophils # (A) 18.7 k/uL (1.3-7.7); Neutrophils % (A) 94 %; Platelet Count 223 k/uL (150-450); Poikilocytosis Slight; RBC 5.29 m/uL (3.80-5.40); RDW 16.7 % (11.5-15.5); WBC 19.9 k/uL (3.8-10.6)
[2020-09-06 08:25] LABS: HGB 14.7 gm/dL (11.4-16.0)
[2020-09-06 08:31] LABS: Calcium 8.4 mg/dL (8.4-10.2); Potassium 3.8 mmol/L (3.5-5.1)
--- NOTE | 2020-09-06 08:52 | P.CNPUL ---
History of Present Illness Consult date: 09/06/20 Reason for consult: chest pain History of present illness: 1-year-old female patient, extremely debilitated, currently living in unsafe living environment with adult protective services have been involved in her situation. The patient comes in to the hospital because of chest pain and she was diagnosed to have an acute STEMI with positive troponins. She was taken to cardiac catheterization for inferior wall acute myocardial infarction. She underwent emergent stenting of the RCA. Following that she was placed on aspirin and Plavix and she was brought in to the ICU. While in the ICU, the patient became hypotensive. The patient had 2 large bloody bowel movements, the first was quite melanotic and the second one was a alliance party. During this time, the patient became hypotensive. She was given IV fluids and no pressors. She received a total of 2 L and following that she was given 2 units of packed RBC. Hemoglobin was around 12.9 at the time of admission, dropped down to 9.3. After the transfusion, hemoglobin is up to 14.7. No hematemesis. No further bouts of GI bleeding since yesterday. She is extremely debilitated cachectic she carries a body mass index of 14. She has undergone previous gastric bypass surgery. Very much malnourished. Has COPD. She is oxygen dependent. Note that her troponin peaked at 162. She has also developed an acute kidney injury with a creatinine of 1.6 from this morning. Note that her previous creatinine was essentially within normal limits. This morning, she is quite lethargic, sleepy, wakes up and communicate yet she doesn't limited amount of discussion. IV fluids are still running at the rate of 75 mL an hour. Note that the patient denies having any intake of nonsteroidal anti-inflammatory medications. She does take Excedrin on a when necessary basis at home. No anticoagulation. In terms of her COPD, advanced and the patient carries an FEV1 of 31% and the patient is maintained on a combination of Symbicort and Spiriva on outpatient basis.Currently, the patient is in normal sinus rhythm, she is normotensive, pulse ox is 91% on 4 by nasal cannula.EGD and colonoscopy that was done in December 2019 showed mild gastritis, post gastric bypass surgery, mild diverticulosis.That the patient was recently in the hospital for intermittent chest pain. At that time an echocardiogram was done and showed diastolic heart failure with an ejection fraction of 50-55% with mild MR and mild TR and moderate degree of pulmonary hypertension. As mentioned, she has severe COPD with an FEV1 of 0.67 L which is only 20% of predicted. She is smoking around one pack of cigarette sedation carries more than [id number] smoking history. She does have nodules that are being followed up on outpatient basis and based on her chronic debility, no further workup is done regarding these pulmonary nodules. Review of Systems Constitutional: Reports fatigue, Reports poor appetite, Reports weakness, Reports weight loss Eyes: denies as per HPI, denies blurred vision, denies bulging eye, denies decreased vision, denies diplopia, denies discharge, denies dry eye, denies irritation, denies itching, denies pain, denies photophobia, denies loss of peripheral vision, denies loss of vision, denies tunnel vision/blind spots Ears: deny: decreased hearing, ear discharge, earache, tinnitus Ears, nose, mouth and throat: Reports as per HPI Breasts: right: as per HPI, absent: change in shape, gynecomastia, masses, nipple discharge, pain, skin changes, swelling Cardiovascular: Reports chest pain Respiratory: Reports as per HPI Gastrointestinal: Reports as per HPI, Reports melena Genitourinary: Reports as per HPI Menstruation: Reports as per HPI Musculoskeletal: Reports gait dysfunction, Reports muscle weakness ( ) Musculoskeletal: absent: ankle pain, ankle stiffness, ankle swelling, as per HPI, elbow pain, elbow stiffness, elbow swelling, foot pain, foot stiffness, foot swelling, hand pain, hand stiffness, hand swelling, hip pain, hip stiffness, hip swelling, knee pain, knee stiffness, knee swelling, shoulder pain, shoulder stiffness, shoulder swelling, wrist pain, wrist stiffness, wrist swelling Integumentary: Reports as per HPI Neurological: Reports as per HPI, Reports balance difficulties, Reports gait dysfunction, Reports weakness Psychiatric: Reports as per HPI Endocrine: Reports as per HPI Hematologic/Lymphatic: Reports as per HPI Allergic/Immunologic: Reports as per HPI Past Medical History Past Medical History: COPD, Hyperlipidemia, Thyroid Disorder Additional Past Medical History / Comment(s): back pain, History of Any Multi-Drug Resistant Organisms: None Reported Past Surgical History: Tonsillectomy Additional Past Surgical History / Comment(s): Gastric bypass for an ulcer, cataract surgery both eyes. Past Anesthesia/Blood Transfusion Reactions: No Reported Reaction Past Psychological History: Depression Smoking Status: Current every day smoker Past Alcohol Use History: Rare Past Drug Use History: None Reported - Past Family History Mother Family Medical History: No Reported History Father Additional Family Medical History / Comment(s): Brain aneurysm Medications and Allergies Home Medications Medication Instructions Recorded Confirmed Type Albuterol Inhaler [Ventolin Hfa 1 puff INHALATION RT-QID PRN 12/27/19 09/05/20 History Inhaler] Metoprolol Tartrate [Lopressor] 25 mg PO BID 12/27/19 09/05/20 History Mirtazapine 45 mg PO HS 12/27/19 09/05/20 History Omeprazole 20 mg PO DAILY 12/27/19 09/05/20 History Verapamil [Isoptin] 40 mg PO BID 12/27/19 09/05/20 History Budesonide/Formoterol Fumarate 2 puff INHALATION RT-BID 07/03/20 09/05/20 History [Symbicort 160-4.5 Mcg Inhaler] Fluticasone Nasal Avinger [Flonase 1 spray EA NOSTRIL BID PRN 07/03/20 09/05/20 History Nasal Avinger] Tiotropium 2.5 Mcg/Puff [Spiriva 2 puff INHALATION RT-DAILY 07/03/20 09/05/20 History Respimat 2.5 Mcg] [id number] 1 tab PO Q4HR PRN 08/21/20 09/05/20 History [Excedrin] Calcium Carbonate/Vitamin D3 3 tab PO DAILY 08/21/20 09/05/20 History [Calcium 500 mg-Vit D3 5 mcg (200 Unit)] Cyclobenzaprine [Flexeril] 5 mg PO BID PRN 08/21/20 09/05/20 History Lactose-Reduced Food [Ensure 1 can PO TID 08/21/20 09/05/20 History Original] Levothyroxine Sodium 25 mcg PO DAILY 08/21/20 09/05/20 History Lidocaine 5% Patch [Lidoderm 5% 1 patch TOPICAL DAILY PRN 08/21/20 09/05/20 History Patch] Furosemide [Lasix] 20 mg PO DAILY #30 tab 08/24/20 09/05/20 Rx Atorvastatin [Lipitor] 80 mg PO HS 09/05/20 09/05/20 History Famotidine [Pepcid] 20 mg PO HS PRN 09/05/20 09/05/20 History Potassium Chloride ER [K-Dur 10] 10 meq PO DAILY PRN 09/05/20 09/05/20 History Varenicline [Chantix Starter Pack] 0.5 mg PO BID 09/05/20 09/05/20 History hydrOXYzine pamoate [hydrOXYzine 25 mg PO BID PRN 09/05/20 09/05/20 History PAMOATE] Allergies Allergy/AdvReac Type Severity Reaction Status Date / Time alendronate sodium Allergy Rash/Hives Verified 09/05/20 11:19 bupropion [From Wellbutrin] Allergy Unknown Verified 09/05/20 11:19 Physical Exam Vitals: Vital Signs Temp Pulse Resp BP Pulse Ox 09/06/20 08:00 98.0 F 84 14 133/83 96 09/06/20 07:45 81 09/06/20 07:35 81 09/06/20 07:30 98 12 135/74 93 L 09/06/20 07:00 84 20 139/75 94 L 09/06/20 06:30 25 H 127/65 09/06/20 06:00 78 13 132/66 94 L 09/06/20 05:30 76 16 103/57 09/06/20 05:05 97.1 F L 75 10 L 138/69 09/06/20 05:00 78 10 L 118/68 92 L 09/06/20 04:30 75 15 115/64 75 L 09/06/20 04:00 97.2 F L 68 14 120/56 97 09/06/20 03:42 97.2 F L 78 14 127/62 09/06/20 03:30 77 20 94/54 90 L 09/06/20 03:12 96.9 F L 85 14 106/56 09/06/20 03:02 97.4 F L 73 15 124/65 93 L 09/06/20 03:00 73 24 103/56 88 L 09/06/20 02:30 75 16 101/59 93 L 09/06/20 02:15 96.2 F L 71 15 110/61 93 L 09/06/20 02:00 75 12 97/56 09/06/20 01:30 141 H 19 110/69 88 L 09/06/20 01:00 69 18 114/76 93 L 09/06/20 00:30 64 124/65 09/06/20 00:00 96.7 F L 58 L 14 128/69 96 09/05/20 23:57 96.7 F L 68 12 127/66 94 L 09/05/20 23:40 67 112/66 09/05/20 23:30 60 15 79/59 09/05/20 23:27 96.3 F L 59 L 14 125/62 94 L 09/05/20 23:17 96.1 F L 60 12 107/58 94 L 09/05/20 23:00 56 L 23 93/34 09/05/20 22:30 54 L 10 L 09/05/20 22:00 59 L 15 69/58 09/05/20 21:30 62 29 H 85/54 09/05/20 21:00 53 L 24 103/40 09/05/20 20:30 56 L 18 87/53 09/05/20 20:00 97.4 F L 130 H 16 87/60 92 L 09/05/20 19:30 59 L 19 76/33 09/05/20 19:00 51 L 18 68/47 09/05/20 18:45 54 L 25 H 68/46 09/05/20 18:30 56 L 24 68/48 99 09/05/20 18:15 137 H 19 81/62 09/05/20 18:00 97 F L 140 H 28 H 82/63 98 09/05/20 17:45 151 H 13 78/55 09/05/20 17:30 57 L 20 100/50 90 L 09/05/20 17:00 140 H 29 H 111/76 90 L 09/05/20 16:30 64 19 94/62 91 L 09/05/20 16:00 60 15 90 L 09/05/20 15:30 67 18 91 L 09/05/20 15:25 75 09/05/20 15:17 67 09/05/20 15:15 86 19 91 L 09/05/20 15:00 101 H 23 09/05/20 14:45 103 H 17 09/05/20 14:30 74 17 128/106 09/05/20 13:00 84 17 132/78 98 09/05/20 11:06 101 H 09/05/20 10:55 104 H 09/05/20 09:59 98.0 F 58 L 18 116/79 100 Intake and Output 09/05/20 09/06/20 09/06/20 22:59 06:59 14:59 Intake Total 2375 1840 150 Output Total 115 210 195 Balance 2260 1630 -45 Intake: IV 2375 600 150 Sodium Chloride 0.9% 1, 2375 600 150 000 ml @ 75 mls/hr IV . [id number] [facility] Rx#:[id number] Blood Product 1240 Rc As-1 Unit 310 [id number] Rc As-1 Unit 310 [id number] Output: Urine 115 210 195 Other: Voiding Method Indwelling Catheter Indwelling Catheter # Bowel Movements 1 Weight 35.8 kg ABP, PAP, CO, CI - Last 8 Hours Arterial Blood Pressure 130/69 Arterial Blood Pressure 163/83 Arterial Blood Pressure 142/72 Arterial Blood Pressure 144/73 Arterial Blood Pressure 139/70 Arterial Blood Pressure 138/67 Arterial Blood Pressure 112/58 Arterial Blood Pressure 123/64 Arterial Blood Pressure 109/57 Arterial Blood Pressure 111/59 Arterial Blood Pressure 126/67 Arterial Blood Pressure 118/64 Arterial Blood Pressure 117/64 Arterial Blood Pressure 118/78 Arterial Blood Pressure 121/65 This patient's extremity debilitated, cachectic, With a body mass index of 14. She is slowing communicating. She is verbal. She is resting comfortably in bed. She looks extremely debilitated and muscle wasted. She'll looks severely malnourished. Head exam was generally normal. There was no scleral icterus or corneal arcus. Mucous membranes were moist. Neck was supple and without jugular venous distension, thyromegaly, or carotid bruits. Carotids were easily palpable bilaterally. There was no adenopathy. Lungs sounds are diminished bilaterally along with scattered expiratory wheezes throughout the lung his bilaterally. Heart sounds are distant, positive S1 and there is no significant murmurs appreciated. Abdomen is soft. There is a scar of a previous gastric bypass surgery over the mid abdomen. No direct tenderness. No rebound tenderness. No guarding. Extremities the patient is severely muscle atrophy. She has profound weakness in all 4 extremities and this is related to global weakness. Results - Laboratory Findings CBC and BMP: 09/06/20 08:00 09/06/20 08:00 Abnormal lab findings: Abnormal Labs 09/05/20 09/05/20 09/05/20 10:56 10:56 13:07 WBC 17.6 H RBC Hgb Hct MCHC RDW 17.9 H Neutrophils # 16.7 H Lymphocytes # 0.1 L Sodium Chloride 92 L Carbon Dioxide 32 H BUN 75 H Creatinine 1.71 H Glucose 199 H POC Glucose (mg/dL) AST 40 H Troponin I 0.613 H* Urine Appearance Urine Protein Urine Blood Urine RBC Urine WBC Urine Mucus Crossmatch 09/05/20 09/05/20 09/05/20 14:35 15:47 16:07 WBC RBC Hgb Hct MCHC RDW Neutrophils # Lymphocytes # Sodium 136 L Chloride Carbon Dioxide BUN 77 H Creatinine 1.41 H Glucose 113 H POC Glucose (mg/dL) 135 H AST Troponin I 43.100 H* Urine Appearance Urine Protein Urine Blood Urine RBC Urine WBC Urine Mucus Crossmatch 09/05/20 09/05/20 09/05/20 20:15 20:24 20:24 WBC 17.6 H RBC 3.31 L Hgb 9.3 L D Hct 30.5 L MCHC 30.5 L RDW 18.0 H Neutrophils # 16.5 H Lymphocytes # 0.3 L Sodium Chloride Carbon Dioxide BUN Creatinine Glucose POC Glucose (mg/dL) AST Troponin I 162.000 H* Urine Appearance Urine Protein Urine Blood Urine RBC Urine WBC Urine Mucus Crossmatch See Detail 09/06/20 09/06/20 09/06/20 02:10 08:00 08:00 WBC 19.9 H RBC Hgb Hct 48.7 H MCHC 30.2 L RDW 16.7 H Neutrophils # 18.7 H Lymphocytes # 0.2 L Sodium Chloride Carbon Dioxide BUN 68 H Creatinine 1.61 H Glucose POC Glucose (mg/dL) AST Troponin I Urine Appearance Cloudy H Urine Protein 1+ H Urine Blood Large H Urine RBC 57 H Urine WBC 11 H Urine Mucus Rare H Crossmatch - Diagnostic Findings Chest x-ray: image reviewed Assessment and Plan Plan: [address] segment elevation myocardial infarction post emergent cardiac catheterization post insertion of a drug-eluting stent with successful revascularized addition of the RCA. Patient is postop day #1. Hemodynamically stable at this point. Cardiac rhythm is sinus. See of any chest pain. Currently on a combination of aspirin and Plavix 2 GI bleed likely of a upper GI source. EGD and colonoscopy that was done back in December 2019 showed evidence of gastric bypass, mild gastritis and divertic ulosis. The patient received a total of 2 units of packed RBC and hemoglobin is up to 14. No further bouts of GI bleeding since yesterday. No abdominal pain or distention. No evidence of any hemodynamic instability 3 advanced COPD 4 chronic hypoxic respiratory failure secondary to above 5 acute kidney injury, creatinine is up to 1.7 6 previous history of gastric bypass surgery 7 hyperlipidemia 8 hypothyroidism 9 history of smoking 10 severe protein calorie malnutrition and the patient is carrying a BMI of 14 Plan This patient is extremely debilitated. She is post [place]. She is also in the ICU for about of an upper GI bleed. Colonoscopy and EGD indicating mild gastritis and diverticulosis from December 2019. We'll place the patient on IV Protonix 40 mg every 12 hours. Currently her hemoglobin is stable. She is hemodynamically stable and she is not showing any signs of bleeding. She does have a fresh drug-eluting stent and based on the risk-benefit of treatment, I think should continue the aspirin and Plavix at this point in time and consult with gastroenterology. May consider another EGD if her GI bleeding recurs. I'm in favor of restarting antiplatelet agent at this point in time nontender the patient is a fresh [place] and she also has a fresh drug-eluting stents. Continue IV fluids with normal state rate of 75 mL an hour. Monitor renal function. Resume bronchodilators. Consult with gastroenterology. Consult with cardiology. She'll be kept here in the ICU for another 24 hours.
[2020-09-06] MEDS ORDERED: ASPIRIN 325 MG TAB PO SCH (09:00)
[2020-09-06] MEDS ORDERED: Potassium Replacement Protocol 1 EACH MISC MISCELLANE PRN (09:19)
[2020-09-06] MEDS: NOREPINEPHRINE 4 MG in SODIUM CHLORIDE 0.9% 250 ML IV SCH (09:20)
[2020-09-06] MEDS: lisinopriL 5 MG TAB PO SCH (09:39)
[2020-09-06] MEDS: CLOPIDOGREL 75 MG TAB PO SCH (09:39)
[2020-09-06] MEDS: METOPROLOL TARTRATE 25 MG TAB PO SCH ×2 (09:39→20:23)
[2020-09-06] MEDS: PANTOPRAZOLE 40 MG/10 ML VIAL IVP SCH ×2 (09:39→20:23)
[2020-09-06] MEDS: ASPIRIN 81 MG PO SCH (09:39)
[2020-09-06] MEDS: CALCIUM CARB-VIT D 500 MG-5 MCG TAB PO SCH (09:39)
[2020-09-06] MEDS ORDERED: POTASSIUM BICARBONATE/CIT AC 20 MEQ TABLET.EFF NG-TUBE SCH (10:00)
--- NOTE | 2020-09-06 10:25 | ECHOF ---
Referral Reason:STEMI MEASUREMENTS -------- HEIGHT: 160.0 cm WEIGHT: 31.3 kg BP: IVSd: 1.3 cm (0.6 - 1.1) LVIDd: 3.6 cm (3.9 - 5.3) LVPWd: 1.2 cm (0.6 - 1.1) IVSs: 1.5 cm LVIDs: 3.0 cm LVPWs: 1.1 cm FINDINGS -------- Sinus rhythm. Limited Study The left ventricular size is normal. There is mild concentric left ventricular hypertrophy. Overa ll left ventricular systolic function is mild-moderately impaired with, an EF between 40 - 45 %. Ba titi lateral LV wall motion is hypokinetic. Basal inferior LV wall motion is hypokinetic. Mid in ferior LV wall motion is hypokinetic. CONCLUSIONS -------- 1. There is mild concentric left ventricular hypertrophy. 2. Overall left ventricular systolic function is mild-moderately impaired with, an EF between 40 - 45 %. 3. Basal lateral LV wall motion is hypokinetic. 4. Basal inferior LV wall motion is hypokinetic. 5. Mid inferior LV wall motion is hypokinetic. EVAPORATOR: Gloria Multani RDCS
--- NOTE | 2020-09-06 11:26 | P.PN ---
Subjective HISTORY OF PRESENTING ILLNESS This is a pleasant 70-year-old female past medical history significant for COPD, hypertension and chronic nicotine dependence. She follows in the office with Dr. Andrews. She was sent into the hospital by home health care nurse for concerns about on safe living environment. On arrival to the emergency depa rtment an EKG was obtained revealing ST elevation inferiorly with diffuse ST depression noted in the precordial leads heart rate of 112. She initially was not complaining of chest discomfort however once prompted after EKG if she is having chest pain and she said "oh yeah" she denies shortness of breath, dizziness or palpitations. Chest x-ray reveals underlying COPD. Laboratory data reviewed, WBC 17.6, hemoglobin 12.9, platelets 313, sodium 139, potassium 4.3, creatinine 1.71, magnesium 2.2 and TSH 4.57. Current daily cardiac medications include verapamil 40 mg twice a day, Lopressor 25 mg twice a day, Lasix 20 mg daily, atorvastatin 80 mg daily. She was here earlier this month and evaluated by us for symptoms of chest discomfort. At that time she was also having an acute exacerbation of COPD. Echocardiogram obtained revealed preserved LV systolic function with ejection fraction 50-55%, mild MR, mild TR and moderate pulmonary hypertension with an RVSP of 49 mmHg. 09/06/2020 Pt is seen and examined resting comfortably laying flat curled up in bed. She is somewhat somnolent today, but does answer questions appropriately. She denies chest pain or shortness of breath. She underwent cardiac catherization yesterday in the setting of an acute inferior wall KS and successful PCI to the mid RCA. She also had disease noted in the circumflex that is mild-moderate, LAD normal proximally and mid with disease in the distal portion that is intermediate- severe and a tight lesion in the large diagonal branch. Limited echo obtained this morning reveals a decrease in her LV function with EF 40-45%, basal lateral, basal inferior and mid inferior wall motion hypokinetic. Laboratory d crow reviewed, WBC 19.9, hemoglobin 14.7, platelets 223, sodium 142, potassium 3.8, creatinine 1.61 and troponin 117. Last night after her cath she had 2 large melanotic stools with a drop in her hgb from 12.9 to 9.3. She was transfused 2 units PRBC. Nursing staff says she has not had any further dark/bloody stools. Blood pressure 138/71 heart rate 73 afebrile maintaining oxygen saturation on nasal cannula. Currently maintained on aspirin 81 mg daily, atorvastatin 80 mg daily, Plavix 75 mg daily, lisinopril 5 mg daily and metoprolol 50 mg twice a day. Telemetry tracings indicate some short bursts of atrial tachycardia yesterday afternoon. No afib. PHYSICAL EXAMINATION CONSTITUTIONAL: No apparent distress. Frail. HEENT: Head is normocephalic. Pupils are equal, round. Sclerae anicteric. Mucous membranes of the mouth are moist. No JVD. No carotid bruit. CHEST EXAMINATION: Expiratory wheeze, no rales or rhonchi. No chest wall tenderness is noted on palpation or with deep breathing. HEART EXAMINATION: Regular rate and rhythm. S1, S2 heard. No murmurs, gallops or rub. EXTREMITIES: Faint bilateral pedal peripheral pulses, no lower extremity edema and no calf tenderness. ASSESSMENT STEMI, inferior wall status post PCI maintained on dual antiplatelet therapy Ischemic cardiomyopathy Acute systolic heart failure, clinically euvolemic. Secondary to acute KS. Leuckocytosis GI bleeding s/p PRBC transfusion Acute kidney injury COPD Hypertension Frail, BMI 12 PLAN Hemoglobin is stable currently with no further bleeding. Continue dual anti- platelet therapy with ASA and plavix. Follow CBC closely. GI has been consulted. Increase activity as tolerated. Ongoing telemetry monitoring. Further recommendations to follow based on clinical course. Nurse Practitioner note has been reviewed, I agree with a documented findings and plan of care. Patient was seen and examined. Objective - Vital Signs Vital signs: Vital Signs Temp 98.0 F 09/06/20 08:00 Pulse 71 09/06/20 11:00 Resp 14 09/06/20 11:00 BP 138/71 09/06/20 11:00 Pulse Ox 98 09/06/20 11:00 Intake & Output 09/05/20 09/06/20 09/06/20 18:59 06:59 18:59 Intake Total 600 3990 375 Output Total 325 355 Balance 600 3665 20 Weight 31.298 kg 35.8 kg Intake: IV 600 2750 375 Sodium Chloride 0.9% 1, 300 2750 375 000 ml @ 75 mls/hr IV . [id number] [facility] Rx#:[id number] Blood Product 1240 As-1 Unit 310 [id number] As-1 Unit 310 [id number] Output: Urine 325 355 Other: Voiding Method Indwelling Catheter Indwelling Catheter # Bowel Movements 1 ABP, PAP, CO, CI - Last Documented Arterial Blood Pressure 123/69 - Labs CBC & Chem 7: 09/06/20 08:00 09/06/20 08:00 Labs: Abnormal Lab Results - Last 24 Hours (Table) 09/05/20 09/05/20 09/05/20 Range/Units 10:56 10:56 13:07 WBC 17.6 H (3.8-10.6) k/uL RBC (3.80-5.40) m/uL Hgb (11.4-16.0) gm/dL Hct (34.0-46.0) % MCHC (31.0-37.0) g/dL RDW 17.9 H (11.5-15.5) % Neutrophils # 16.7 H (1.3-7.7) k/uL Lymphocytes # 0.1 L (1.0-4.8) k/uL Sodium (137-145) mmol/L Chloride 92 L (98-107) mmol/L Carbon Dioxide 32 H (22-30) mmol/L BUN 75 H (7-17) mg/dL Creatinine 1.71 H (0.52-1.04) mg/dL Glucose 199 H (74-99) mg/dL POC Glucose (mg/dL) (75-99) mg/dL AST 40 H (14-36) U/L Troponin I 0.613 H* (0.000-0.034) ng/mL Urine Appearance (Clear) Urine Protein (Negative) Urine Blood (Negative) Urine RBC (0-5) /hpf Urine WBC (0-5) /hpf Urine Mucus (None) /hpf Crossmatch 09/05/20 09/05/20 09/05/20 Range/Units 14:35 15:47 16:07 WBC (3.8-10.6) k/uL RBC (3.80-5.40) m/uL Hgb (11.4-16.0) gm/dL Hct (34.0-46.0) % MCHC (31.0-37.0) g/dL RDW (11.5-15.5) % Neutrophils # (1.3-7.7) k/uL Lymphocytes # (1.0-4.8) k/uL Sodium 136 L (137-145) mmol/L Chloride (98-107) mmol/L Carbon Dioxide (22-30) mmol/L BUN 77 H (7-17) mg/dL Creatinine 1.41 H (0.52-1.04) mg/dL Glucose 113 H (74-99) mg/dL POC Glucose (mg/dL) 135 H (75-99) mg/dL AST (14-36) U/L Troponin I 43.100 H* (0.000-0.034) ng/mL Urine Appearance (Clear) Urine Protein (Negative) Urine Blood (Negative) Urine RBC (0-5) /hpf Urine WBC (0-5) /hpf Urine Mucus (None) /hpf Crossmatch 09/05/20 09/05/20 09/05/20 Range/Units 20:15 20:24 20:24 WBC 17.6 H (3.8-10.6) k/uL RBC 3.31 L (3.80-5.40) m/uL Hgb 9.3 L D (11.4-16.0) gm/dL Hct 30.5 L (34.0-46.0) % MCHC 30.5 L (31.0-37.0) g/dL RDW 18.0 H (11.5-15.5) % Neutrophils # 16.5 H (1.3-7.7) k/uL Lymphocytes # 0.3 L (1.0-4.8) k/uL Sodium (137-145) mmol/L Chloride (98-107) mmol/L Carbon Dioxide (22-30) mmol/L BUN (7-17) mg/dL Creatinine (0.52-1.04) mg/dL Glucose (74-99) mg/dL POC Glucose (mg/dL) (75-99) mg/dL AST (14-36) U/L Troponin I 162.000 H* (0.000-0.034) ng/mL Urine Appearance (Clear) Urine Protein (Negative) Urine Blood (Negative) Urine RBC (0-5) /hpf Urine WBC (0-5) /hpf Urine Mucus (None) /hpf Crossmatch See Detail 0609/06/20 09/06/20 Range/Units 02:10 08:00 08:00 WBC (3.8-10.6) k/uL RBC (3.80-5.40) m/uL Hgb (11.4-16.0) gm/dL Hct (34.0-46.0) % MCHC (31.0-37.0) g/dL RDW (11.5-15.5) % Neutrophils # (1.3-7.7) k/uL Lymphocytes # (1.0-4.8) k/uL Sodium (137-145) mmol/L Chloride (98-107) mmol/L Carbon Dioxide (22-30) mmol/L BUN 68 H (7-17) mg/dL Creatinine 1.61 H (0.52-1.04) mg/dL Glucose (74-99) mg/dL POC Glucose (mg/dL) (75-99) mg/dL AST (14-36) U/L Troponin I 117.000 H* (0.000-0.034) ng/mL Urine Appearance Cloudy H (Clear) Urine Protein 1+ H (Negative) Urine Blood Large H (Negative) Urine RBC 57 H (0-5) /hpf Urine WBC 11 H (0-5) /hpf Urine Mucus Rare H (None) /hpf Crossmatch 09/06/20 Range/Units 08:00 WBC 19.9 H (3.8-10.6) k/uL RBC (3.80-5.40) m/uL Hgb (11.4-16.0) gm/dL Hct 48.7 H (34.0-46.0) % MCHC 30.2 L (31.0-37.0) g/dL RDW 16.7 H (11.5-15.5) % Neutrophils # 18.7 H (1.3-7.7) k/uL Lymphocytes # 0.2 L (1.0-4.8) k/uL Sodium (137-145) mmol/L Chloride (98-107) mmol/L Carbon Dioxide (22-30) mmol/L BUN (7-17) mg/dL Creatinine (0.52-1.04) mg/dL Glucose (74-99) mg/dL POC Glucose (mg/dL) (75-99) mg/dL AST (14-36) U/L Troponin I (0.000-0.034) ng/mL Urine Appearance (Clear) Urine Protein (Negative) Urine Blood (Negative) Urine RBC (0-5) /hpf Urine WBC (0-5) /hpf Urine Mucus (None) /hpf Crossmatch Microbiology - Last 24 Hours (Table) 09/06/20 02:10 Urine Culture - Preliminary Urine,Voided
[2020-09-06 12:28] VITALS: BMI 13.9
[2020-09-06 13:09] LABS: Chol/HDL Ratio 2.33
--- NOTE | 2020-09-06 14:30 | P.PN ---
Subjective 70-year-old female admitted the for a daily ST elevation myocardial infarction and patient underwent the stenting of RCA. Patient had inferior wall myocardial infarction. Patient troponins went up as high as 160. Patient was started on not dual antiplatelet therapy patient started having.stools today. Patient was started on Protonix IV since the patient had a cardiac catheterization and stenting yesterday Dual Antiplatelet therapy is being continued. Patient does have advanced COPD. Constitutional: Patient does have severe fatigue Cardio vascular: denied any chest pain, palpitations Gastrointestinal denied any nausea vomiting Pulmonary: Denied any shortness of breath cough Neurologic denied any new focal deficits All inpatient medications were reviewed and appropriate changes in these medications as dictated in the interval history and assessment and plan. Objective - Vital Signs Vital signs: Vital Signs Temp 98.0 F 09/06/20 12:00 Pulse 76 09/06/20 13:00 Resp 15 09/06/20 13:00 BP 128/74 09/06/20 13:00 Pulse Ox 92 L 09/06/20 13:00 Intake & Output 09/05/20 09/06/20 09/06/20 18:59 06:59 18:59 Intake Total 600 3990 525 Output Total 325 440 Balance 600 3665 85 Weight 31.298 kg 35.8 kg 35.8 kg Intake: IV 600 2750 525 Sodium Chloride 0.9% 1, 300 2750 525 000 ml @ 75 mls/hr IV . [id number] [facility] Rx#:[id number] Blood Product 1240 Rc As-1 Unit 310 [id number] Rc As-1 Unit 310 [id number] Output: Urine 325 440 Other: Voiding Method Indwelling Catheter Indwelling Catheter # Bowel Movements 1 ABP, PAP, CO, CI - Last Documented Arterial Blood Pressure 121/93 - Exam PHYSICAL EXAMINATION: GENERAL: The patient is alert and oriented x3, not in any acute distress. Thin built cachectic female HEENT: Pupils are round and equally reacting to light. EOMI. No scleral icterus. No conjunctival pallor. Normocephalic, atraumatic. No pharyngeal erythema. No thyromegaly. CARDIOVASCULAR: S1 and S2 present. No murmurs, rubs, or gallops. PULMONARY: Chest is clear to auscultation, no wheezing or crackles. ABDOMEN: Soft, nontender, nondistended, normoactive bowel sounds. No palpable organomegaly. MUSCULOSKELETAL: No joint swelling or deformity. EXTREMITIES: No cyanosis, clubbing, or pedal edema. NEUROLOGICAL: Gross neurological examination did not reveal any focal deficits. SKIN: No rashes. - Labs CBC & Chem 7: 09/06/20 08:00 09/06/20 08:00 Labs: Abnormal Lab Results - Last 24 Hours (Table) 09/05/20 09/05/20 09/05/20 Range/Units 13:07 14:35 15:47 WBC (3.8-10.6) k/uL RBC (3.80-5.40) m/uL Hgb (11.4-16.0) gm/dL Hct (34.0-46.0) % MCHC (31.0-37.0) g/dL RDW (11.5-15.5) % Neutrophils # (1.3-7.7) k/uL Lymphocytes # (1.0-4.8) k/uL Sodium (137-145) mmol/L BUN (7-17) mg/dL Creatinine (0.52-1.04) mg/dL Glucose (74-99) mg/dL POC Glucose (mg/dL) 135 H (75-99) mg/dL Troponin I 0.613 H* 43.100 H* (0.000-0.034) ng/mL HDL Cholesterol (40.0-60.0) mg/dL Urine Appearance (Clear) Urine Protein (Negative) Urine Blood (Negative) Urine RBC (0-5) /hpf Urine WBC (0-5) /hpf Urine Mucus (None) /hpf Crossmatch 09/05/20 09/05/20 09/05/20 Range/Units 16:07 20:15 20:24 WBC (3.8-10.6) k/uL RBC (3.80-5.40) m/uL Hgb (11.4-16.0) gm/dL Hct (34.0-46.0) % MCHC (31.0-37.0) g/dL RDW (11.5-15.5) % Neutrophils # (1.3-7.7) k/uL Lymphocytes # (1.0-4.8) k/uL Sodium 136 L (137-145) mmol/L BUN 77 H (7-17) mg/dL Creatinine 1.41 H (0.52-1.04) mg/dL Glucose 113 H (74-99) mg/dL POC Glucose (mg/dL) (75-99) mg/dL Troponin I 162.000 H* (0.000-0.034) ng/mL HDL Cholesterol (40.0-60.0) mg/dL Urine Appearance (Clear) Urine Protein (Negative) Urine Blood (Negative) Urine RBC (0-5) /hpf Urine WBC (0-5) /hpf Urine Mucus (None) /hpf Crossmatch See Detail 09/05/20 09/06/20 09/06/20 Range/Units 20:24 02:10 08:00 WBC 17.6 H (3.8-10.6) k/uL RBC 3.31 L (3.80-5.40) m/uL Hgb 9.3 L D (11.4-16.0) gm/dL Hct 30.5 L (34.0-46.0) % MCHC 30.5 L (31.0-37.0) g/dL RDW 18.0 H (11.5-15.5) % Neutrophils # 16.5 H (1.3-7.7) k/uL Lymphocytes # 0.3 L (1.0-4.8) k/uL Sodium (137-145) mmol/L BUN 68 H (7-17) mg/dL Creatinine 1.61 H (0.52-1.04) mg/dL Glucose (74-99) mg/dL POC Glucose (mg/dL) (75-99) mg/dL Troponin I (0.000-0.034) ng/mL HDL Cholesterol (40.0-60.0) mg/dL Urine Appearance Cloudy H (Clear) Urine Protein 1+ H (Negative) Urine Blood Large H (Negative) Urine RBC 57 H (0-5) /hpf Urine WBC 11 H (0-5) /hpf Urine Mucus Rare H (None) /hpf Crossmatch 09/06/20 09/06/20 09/06/20 Range/Units 08:00 08:00 08:00 WBC 19.9 H (3.8-10.6) k/uL RBC (3.80-5.40) m/uL Hgb (11.4-16.0) gm/dL Hct 48.7 H (34.0-46.0) % MCHC 30.2 L (31.0-37.0) g/dL RDW 16.7 H (11.5-15.5) % Neutrophils # 18.7 H (1.3-7.7) k/uL Lymphocytes # 0.2 L (1.0-4.8) k/uL Sodium (137-145) mmol/L BUN (7-17) mg/dL Creatinine (0.52-1.04) mg/dL Glucose (74-99) mg/dL POC Glucose (mg/dL) (75-99) mg/dL Troponin I 117.000 H* (0.000-0.034) ng/mL HDL Cholesterol 63.0 H (40.0-60.0) mg/dL Urine Appearance (Clear) Urine Protein (Negative) Urine Blood (Negative) Urine RBC (0-5) /hpf Urine WBC (0-5) /hpf Urine Mucus (None) /hpf Crossmatch Microbiology - Last 24 Hours (Table) 09/06/20 02:10 Urine Culture - Preliminary Urine,Voided Assessment and Plan Plan: -Acute inferior wall ST elevation myocardial infarction: Patient is status post cardiac catheterization and stenting to RCA. Continue aspirin Plavix, statin, beta sanjana. -Acute upper GI bleed: Continue Protonix, continue dual antiplatelet therapy -COPD with mild acute exacerbation patient will be started on inhalational t reatments and the inhalational steroids, improved -Acute renal failure renal azotemia patient will be started on IV fluids. Serum creatinine is bit worse probably secondary to contrast -Chronic kidney disease stage III from hypertensive nephrosclerosis -Hypertension -Mild protein calorie malnutrition thin built female. -Continued nicotine use: Counseling was provided 1 she comes back from [facility] -Gastroesophageal reflux disease continue Pepcid
--- NOTE | 2020-09-06 18:19 | CONS ---
CONSULTATION DATE OF SERVICE: 09/06/2020 REQUESTING PHYSICIAN: Dr. Mejia and [facility]. HISTORY OF PRESENT ILLNESS: The patient is a 70-year-old pleasant white female admitted to the hospital yesterday because of some issues with the living arrangements and was sent to the hospital by home healthcare services. Apparently, when she came to the emergency room, she was complaining of some chest pain and abnormal EKG and subsequently she was taken for cardiac catheterization and underwent a stent placement. She was started on aspirin and Plavix postprocedure and she was on IV heparin at that time and last night she had 2 episodes of large bloody bowel movements. She became somewhat hypotensive and was given 2 units of PRBC transfusion. Her initial hemoglobin was 12.9 g/dL and subsequently dropped to 9.3 g/dL last night and, hence, was given 2 units of PRBC transfusion and repeat hemoglobin this morning is 14.7. The patient is a very poor historian. She denies any abdominal pain. She denies any nausea, vomiting. She does have history of gastric bypass surgery in the late . She states that she was diagnosed with peptic ulcer disease in the past. Currently, was started on Protonix 40 mg twice daily and she had no further episodes of bleeding since this morning. She remains hemodynamically stable. PAST MEDICAL HISTORY: Significant for hypertension, hyperlipidemia, gastroesophageal reflux disease, history of anxiety, depression, chronic back pain, COPD. PAST SURGICAL HISTORY: Tonsillectomy, gastric bypass surgery, gastric surgery for an ulcer, cataract surgery. MEDICATIONS: Medications at home include albuterol, Lopressor, ( ), omeprazole, Isoptin, Symbicort, Flonase, Spiriva, Excedrin, calcium, Flexeril, Ensure, levothyroxine, Lasix, Lipitor Pepcid, potassium chloride, Chantix, hydroxyzine. ALLERGIES: ALENDRONATE AND WELLBUTRIN. SOCIAL HISTORY: Chronic smoker. No alcohol use. FAMILY HISTORY: Mother unremarkable. Father of brain aneurysm. REVIEW OF SYSTEMS: CARDIOPULMONARY: She did have some chest pain but no shortness of breath. : No dysuria or hematuria. MUSCULOSKELETAL: Unremarkable. SKIN: Unremarkable. ENDOCRINE: Unremarkable. PSYCHIATRIC: History of anxiety and depression. NEUROLOGY: Unremarkable. CONSTITUTIONAL: Weight loss of 10 pounds. No fever, chills, night sweats. PHYSICAL EXAMINATION: She appears comfortable. Vital signs show blood pressure 133/75, pulse 81, temperature 98. HEENT examination unremarkable. Conjunctivae pink, sclerae anicteric. Oral cavity no lesions. NECK: No JVD or lymph node enlargement. CHEST was clear to auscultation. HEART: Regular rate and rhythm. ABDOMEN: Soft, it was nontender. Bowel sounds are positive. No organomegaly. NEURO: She is alert and oriented x3. No focal deficits. LABS: WBC 17.6, hemoglobin 12.9, and platelets were 313 today. Last hemoglobin was down to 9.3 and today it is 14.7 after 2 units of PRBC transfusion. BUN went up to 75, creatinine 1.71. AST 40, ALT 32. T bilirubin and alkaline phosphatase are within normal limits. Troponin went up to 162 and today it is 117. IMPRESSION: 1. Acute upper gastrointestinal bleed. Patient had couple of episodes of black tarry stools last night post cardiac catheterization with angioplasty and stent placement. She dropped her hemoglobin from 12.9 to 9.6 g/dL. She received 2 units of PRBC transfusion as she was somewhat hypotensive and today hemoglobin is 14 g/dL. She did not have any further episodes of bleeding. The patient has prior history of gastric surgery related to peptic ulcer disease several years ago. 2. Acute myocardial infarction status post cardiac catheterization with angioplasty and stent placement yesterday. Presently on aspirin and Plavix. 3. History of gastric surgery related to peptic ulcer disease many years ago. 4. Advanced chronic obstructive pulmonary disease. 5. Congestive heart failure related to acute myocardial infarction. 6. Acute kidney injury. RECOMMENDATION: 1. Continue with Protonix 40 mg twice daily. 2. Continue with aspirin and Plavix for now. She had a stent placement yesterday for an acute SD. 3. Monitor CBC on a daily basis. 4. Will proceed with an upper endoscopy tomorrow. Discussed with the patient risks, benefits and complications and she is agreeable to it. Thank you for this consultation. MMODL / IJN: [id number] /
[2020-09-06] MEDS: MIRTAZAPINE 45 MG TABLET PO SCH (20:23)
[2020-09-06] MEDS: ATORVASTATIN 80 MG TAB PO SCH (20:23)
[2020-09-07] MEDS: NOREPINEPHRINE 4 MG in SODIUM CHLORIDE 0.9% 250 ML IV SCH ×2 (00:47→18:05)
[2020-09-07 04:24] LABS: Anisocytosis Slight; HCT 45.6 % (34.0-46.0); Hypochromasia Slight; MCH 30.4 pg (25.0-35.0); MCHC 32.9 g/dL (31.0-37.0); MCV 92.2 fL (80.0-100.0); Mean Platelet Volume 7.7; Platelet Count 237 k/uL (150-450); Poikilocytosis Slight; RBC 4.94 m/uL (3.80-5.40); RDW 16.8 % (11.5-15.5); WBC 25.4 k/uL (3.8-10.6)
[2020-09-07 04:34] LABS: Calcium 8.6 mg/dL (8.4-10.2); Potassium 4.4 mmol/L (3.5-5.1)
[2020-09-07] MEDS: SODIUM CHLORIDE 0.9% 1,000 ML IV SCH ×2 (07:00→20:00)
[2020-09-07] MEDS: SYMBICORT 160-4.5 MCG INHALER INHALATION SCH ×2 (07:53→20:58)
[2020-09-07] MEDS: IPRATROPIUM-ALBUTEROL 3 ML NEB INHALATION SCH ×4 (07:53→20:58)
[2020-09-07] MEDS: METOPROLOL TARTRATE 25 MG TAB PO SCH ×2 (08:16→18:12)
[2020-09-07] MEDS: lisinopriL 5 MG TAB PO SCH (08:16)
[2020-09-07] MEDS: CALCIUM CARB-VIT D 500 MG-5 MCG TAB PO SCH (08:16)
[2020-09-07] MEDS: CLOPIDOGREL 75 MG TAB PO SCH (08:16)
[2020-09-07] MEDS: PANTOPRAZOLE 40 MG/10 ML VIAL IVP SCH ×2 (08:16→21:25)
[2020-09-07] MEDS: ASPIRIN 81 MG PO SCH (08:16)
[2020-09-07] MEDS: LEVOTHYROXINE 25 MCG TAB PO SCH (08:16)
[2020-09-07] MEDS ORDERED: IV FLUID CONTINUATION 1,000 ML IV ONE (08:50)
[2020-09-07] MEDS ORDERED: FUROSEMIDE 10 MG/ML 2 ML VIAL IV ONE (09:20)
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
--- NOTE | 2020-09-07 09:33 | PN ---
PROGRESS NOTE DATE OF SERVICE: 09/07/2020 INTERVAL HISTORY: Patient is a 70-year-old white female admitted to the hospital with acute RI and she is status post angioplasty with stent placement. The patient remains in the intensive care unit. She had acute GI bleed following stent placement and IV heparin has been on hold since then. She has currently remained on aspirin and Plavix. She dropped hemoglobin from 12 to 9 and received 2 units of PRBC transfusion and now hemoglobin is stable at 15 g/dL. Since yesterday, she did not have any further episodes of bleeding. The patient is scheduled for an upper endoscopy today, but Anesthesia felt that she is extremely high risk for sedation and hence the procedure has been canceled. The patient denies any abdominal pain. No nausea, vomiting. PHYSICAL EXAMINATION: GENERAL: She is somewhat tachypneic. VITAL SIGNS: Blood pressure 115/58, pulse rate 89, temperature 97. HEENT: Examination unremarkable. Conjunctivae are pink. Sclerae anicteric. Oral cavity no lesions. CHEST: Decreased breath sounds bilaterally. HEART: Regular rate and rhythm. Tachycardia noted. ABDOMEN: Soft, mild tenderness in the epigastric area. Bowel sounds are positive. EXTREMITIES: No pedal edema noted. NEURO: She is alert and oriented x3. No focal deficits. LABS: From today WBC is a 25.4, hemoglobin 15, platelets 234, BUN is 58, creatinine 1.04. IMPRESSION: 1. Acute gastrointestinal bleed, possibly upper in etiology. The patient had 2 episodes of large bloody bowel movements following cardiac catheterization with stent placement. IV heparin has been discontinued and the patient remains on aspirin and Plavix. No further bleeding. Hemoglobin stable at 15 g/dL. Remains on Protonix 40 mg twice daily. She was scheduled for an upper endoscopy today, but the procedure was canceled by Anesthesia because of extremely high risk. 2. Acute myocardial infarction, status post angioplasty with stent placement. On aspirin and Plavix. 3. History of gastric surgery related to peptic ulcer disease several years ago. 4. History of chronic obstructive pulmonary disease. 5. History of hypothyroidism. RECOMMENDATIONS: 1. Continue with Protonix 40 mg twice daily. 2. Monitor CBC daily. 3. We will hold off on any endoscopic intervention until her cardiorespiratory status stabilizes. 4. Continue symptomatic and supportive care. 5. We will start her back on a full liquid diet and advance as tolerated. 6. We will follow with you closely. MMODL / IJN: [id number] /
--- NOTE | 2020-09-07 09:35 | XR ---
EXAMINATION TYPE: XR chest 1V portable DATE OF EXAM: 09/07/2020 CLINICAL HISTORY: Difficulty breathing and hypoxia progress study. TECHNIQUE: Single AP portable upright view of the chest is obtained. COMPARISON: Chest x-ray from 2 days earlier FINDINGS: Background chronic emphysematous change with new small to tiny left pleural effusion and m ore moderate size right pleural effusion with associated compressive atelectasis. No mediastinal shif t. Cardiac silhouette size stable and within normal limits. Underlying scoliosis redemonstrated. Surg ical clips epigastric region redemonstrated. IMPRESSION: Chronic emphysematous change with new moderate-size right pleural effusion and new small to tiny left pleural effusion with associated bibasilar compressive atelectasis.
[2020-09-07] MEDS: PIPERACILLIN-TAZOBACTAM 3.375 GM in SODIUM CHLORIDE 0.9% 100 ML IVPB SCH ×3 (10:24→23:59)
[2020-09-07 12:45] LABS: Anisocytosis Slight; HCT 47.5 % (34.0-46.0); Hypochromasia Marked; MCH 30.1 pg (25.0-35.0); MCHC 31.6 g/dL (31.0-37.0); MCV 95.3 fL (80.0-100.0); Mean Platelet Volume 8.3; Platelet Count 213 k/uL (150-450); Poikilocytosis Slight; RBC 4.99 m/uL (3.80-5.40); RDW 16.8 % (11.5-15.5); WBC 22.4 k/uL (3.8-10.6)
--- NOTE | 2020-09-07 16:00 | P.PN ---
Subjective Progress Note Date: 09/07/20 This 70-year-old female who is extremely debilitated was admitted to the hospital with evidence of inferior wall [place]. Patient had a cardiac catheterization and stent placement of the RCA which was totally occluded. She was on aspirin and Plavix. She started having bloody stools and diarrhea and GI bleeding with a drop in hemoglobin. Patient received 2 units of blood transfusion. Seen by gastroenterology. Patient was scheduled to have endoscopy studies. Because of her debilitated status, anesthesia cancer of the procedure. Patient is complaining of bloody diarrhea. She wants to go home. Chest x-ray shows bilateral pleural effusion, right more than left. Her white count went up to it is suspected that patient may have aspiration pneumonia. She is being treated with antibiotics. Overall her clinical status is unstable. We'll continue with aspirin and Plavix. She is on Protonix. Prognosis is guarded Objective - Vital Signs Vital signs: Vital Signs Temp 97.7 F 09/07/20 12:00 Pulse 84 09/07/20 15:26 Resp 33 H 09/07/20 13:00 BP 93/56 09/07/20 13:00 Pulse Ox 96 09/07/20 13:00 Intake & Output 09/06/20 09/07/20 09/07/20 18:59 06:59 18:59 Intake Total 1000 900 350 Output Total 780 510 340 Balance 220 390 10 Weight 35.8 kg 35 kg Intake: IV 900 900 350 Sodium Chloride 0.9% 1, 900 900 350 000 ml @ 40 mls/hr IV . Q24H [facility] Rx#:[id number] Oral 100 Output: Urine 780 510 340 Other: Voiding Method Indwelling Catheter Indwelling Catheter Indwelling Catheter # Bowel Movements 2 1 ABP, PAP, CO, CI - Last Documented Arterial Blood Pressure 115/58 - Exam GENERAL EXAM: Patient is thin and ill-looking. Distressed because she is having bloody diarrhea and also having some difficulty breathing HEENT: Normocephalic. Normal reaction of pupils, equal size, normal range of extraocular motion. No erythema or exudates in the throat. NECK: No masses, no nuchal rigidity. CHEST: No chest wall deformity. LUNGS: Diminished breath sounds at both bases HEART: S1 and S2 normal with no audible mumurs or gallops. Regular rhythm, femorals equal on both sides.. ABDOMEN: No hepatosplenomegaly, normal bowel sounds, no guarding or rigidity. SKIN: No rashes CENTRAL NERVOUS SYSTEM: No focal deficits. EXTREMITIES: No cyanosis, clubbing or edema. - Labs CBC & Chem 7: 09/07/20 12:36 09/07/20 04:00 Labs: Abnormal Lab Results - Last 24 Hours (Table) 09/07/20 09/07/20 09/07/20 Range/Units 04:00 04:00 12:36 WBC 25.4 H 22.4 H (3.8-10.6) k/uL Hct 47.5 H (34.0-46.0) % RDW 16.8 H 16.8 H (11.5-15.5) % Chloride 111 H (98-107) mmol/L Carbon Dioxide 31 H (22-30) mmol/L BUN 58 H (7-17) mg/dL Glucose 114 H (74-99) mg/dL Microbiology - Last 24 Hours (Table) 09/06/20 02:10 Urine Culture - Final Urine,Voided Assessment and Plan (1) Pleural effusion Current Visit: Yes Status: Acute Code(s): J90 - PLEURAL EFFUSION, NOT ELSEWHERE CLASSIFIED SNOMED Code(s): 99046682 (2) AMI inferior wall Current Visit: Yes Status: Acute Code(s): I21.19 - STEMI INVOLVING OTH CORONARY ARTERY OF INFERIOR WALL SNOMED Code(s): 79707260 (3) Acute kidney injury Current Visit: Yes Status: Acute Code(s): N17.9 - ACUTE KIDNEY FAILURE, UNSPECIFIED SNOMED Code(s): 49431804 (4) COPD exacerbation Current Visit: Yes Status: Acute Code(s): J44.1 - CHRONIC OBSTRUCTIVE PULMONARY DISEASE W (ACUTE) EXACERBATION SNOMED Code(s): 833989879 (5) GI bleeding Current Visit: Yes Status: Acute Code(s): K92.2 - GASTROINTESTINAL HEMORRHAGE, UNSPECIFIED SNOMED Code(s): 60753060 Plan: Continue currents treatment. Follow CBC closely. Continue antibiotics. Further recommendations depend upon clinical course. Echo Cardigan showed an ejection fraction of 40-45%
[2020-09-07 18:57] LABS: Anisocytosis Slight; HCT 45.6 % (34.0-46.0); HGB 14.3 gm/dL (11.4-16.0); Hypochromasia Marked; MCH 29.9 pg (25.0-35.0); MCHC 31.3 g/dL (31.0-37.0); MCV 95.4 fL (80.0-100.0); Mean Platelet Volume 8.4; Platelet Count 182 k/uL (150-450); Poikilocytosis Slight; RBC 4.78 m/uL (3.80-5.40); RDW 16.8 % (11.5-15.5); WBC 17.1 k/uL (3.8-10.6)
[2020-09-07] MEDS ORDERED: FUROSEMIDE 10 MG/ML 4 ML VIAL IV STA (19:43)
[2020-09-07] MEDS ORDERED: LORazepam 2 MG/ML INJ IV PRN (19:49)
[2020-09-07] MEDS: ATORVASTATIN 80 MG TAB PO SCH (20:26)
[2020-09-07] MEDS: MIRTAZAPINE 45 MG TABLET PO SCH (20:26)
[2020-09-07] MEDS ORDERED: SODIUM CHLORIDE 0.9% 1,000 ML IV ONE (21:40)
--- NOTE | 2020-09-07 23:29 | P.PN ---
Subjective This is a pleasant 70 years old female with multiple medical problems was admitted with inferior STEMI status post stent placement of the RCA. Patient was placed on the drug eluting stent and because of this she will need aspirin and Plavix for 1 year to keep stent open per [employer]. However patient developed upper GI bleed, placed on Protonix IV twice daily, consult GI team and they are holding on any endoscopic or EGD for patient is not medically stable. However hemoglobin is a stable at 14.7 after 2 units of blood transfusion due to low hemoglobin at 9.3. Today chest x-ray showing bilateral pleural effusion more of the right with atelectasis and possible pneumonia, patient was started on Zosyn for possible aspiration pneumonia Also creatinine is 1.6, patient with chronic kidney disease stage III Echocardiogram showing ejection fraction of 40-45% with hypokinesia secondary to ischemic cardiomyopathy. Today patient is awake and alert, distress. No abdominal pain or chest pain or dyspnea but she looks very tired and frail and lethargic. She needed help from staff. She had 2 large bloody bowel movement. 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 WBC is 19 k Several consultants on the case Review of systems CONSTITUTIONAL: No fever, no malaise, no fatigue. HEENT: No recent visual problems or hearing problems. Denied any sore throat. CARDIOVASCULAR: No orthopnea, PND, no palpitations, no syncope. PULMONARY: No shortness of breath, no cough, no hemoptysis. GASTROINTESTINAL: no nausea, no vomiting, no abdominal pain. Normoactive bowel sounds. NEUROLOGICAL: No headaches, no weakness, no numbness. Active Medications Generic Name Dose Route Start Last Admin Trade Name Freq PRN Reason Stop Dose Admin Al Hydroxide/Mg Hydroxide 30 ml 09/05/20 13:53 Mag Hydrox/Al Hydrox/Simeth 30 Ml Cup PO Q4HR PRN Heartburn Albuterol/Ipratropium 3 ml 09/05/20 13:50 Ipratropium-Albuterol 3 Ml Neb INHALATION RT-QID PRN Shortness Of Breath Or Wheezing Albuterol/Ipratropium 3 ml 09/05/20 16:00 09/07/20 20:58 Ipratropium-Albuterol 3 Ml Neb INHALATION 3 ml RT-QID [facility] Administration Aspirin 81 mg 09/06/20 09:00 09/07/20 08:16 Aspirin 81 Mg PO 81 mg DAILY [facility] Administration Atorvastatin Calcium 80 mg 09/05/20 21:00 09/07/20 20:26 Atorvastatin 80 Mg Tab PO Not Given HS [facility] Atropine Sulfate 0.5 mg 09/05/20 13:53 Atropine Sulfate 0.1 Mg/Ml 10ml Syringe IV ONCE PRN Symptomatic Bradycardia Budesonide/Formoterol Fumarate 2 puff 09/05/20 20:00 09/07/20 20:58 Symbicort 160-4.5 Mcg Inhaler INHALATION Not Given RT-BID [facility] Calcium Carbonate 3 each 09/06/20 09:00 09/07/20 08:16 Calcium Carb-Vit D 500 Mg-5 Mcg Tab PO Not Given DAILY [facility] Clopidogrel Bisulfate 75 mg 09/06/20 09:00 09/07/20 08:16 Clopidogrel 75 Mg Tab PO 75 mg DAILY [facility] Administration Cyclobenzaprine HCl 5 mg 09/05/20 13:46 Cyclobenzaprine 5 Mg Tab PO BID PRN Muscle Spasm Famotidine 20 mg 09/05/20 13:46 Famotidine 20 Mg Tab PO HS PRN Heartburn Hydroxyzine Pamoate 25 mg 09/05/20 13:46 09/07/20 12:56 Hydroxyzine Pamoate 25 Mg Cap PO 25 mg BID PRN Administration Anxiety Sodium Chloride 1,000 mls @ 40 mls/hr 09/05/20 14:00 09/07/20 20:00 Saline 0.9% IV 40 mls/hr .Q24H [facility] Administration Norepinephrine Bitartrate 4 mg 254 mls @ 5.962 mls/hr 09/05/20 21:15 09/07/20 23:03 / Sodium Chloride IV 0.36 mcg/kg/min .Q24H [facility] 42.928 mls/hr Titration Protocol 0.05 MCG/KG/MIN Piperacillin Sod/Tazobactam 100 mls @ 25 mls/hr 09/07/20 09:30 09/07/20 16:21 Sod 3.375 gm/ Sodium Chloride IVPB 25 mls/hr Q8HR [facility] Administration Levothyroxine Sodium 25 mcg 09/06/20 06:30 09/07/20 08:16 Levothyroxine 25 Mcg Tab PO 25 mcg DAILY@0630 [facility] Administration Lidocaine 1 patch 09/05/20 13:50 Lidocaine 5% Patch TOPICAL DAILY PRN Pain Lisinopril 5 mg 09/05/20 14:45 09/07/20 08:16 Lisinopril 5 Mg Tab PO 5 mg DAILY [facility] Administration Lorazepam 0.5 mg 09/07/20 19:49 Lorazepam 2 Mg/Ml Inj IV Q6HR PRN Anxiety Metoprolol Tartrate 75 mg 09/07/20 21:00 09/07/20 18:12 Metoprolol Tartrate 25 Mg Tab PO 75 mg BID [facility] Administration Mirtazapine 45 mg 09/05/20 21:00 09/07/20 20:26 Mirtazapine 45 Mg Tablet PO Not Given HS [facility] Miscellaneous Information 1 each 09/06/20 09:19 Potassium Replacement Protocol 1 Each Misc MISCELLANE DAILY PRN Per Protocol Protocol Nitroglycerin 0.4 mg 09/05/20 13:16 Nitroglycerin Sl Tabs 0.4 Mg Tab SUBLINGUAL Q5M PRN Chest Pain Pantoprazole Sodium 40 mg 09/06/20 09:00 09/07/20 21:25 Pantoprazole 40 Mg/10 Ml Vial IVP 40 mg BID [facility] Administration Objective - Vital Signs Vital signs: Vital Signs Temp 97.6 F 09/07/20 16:00 Pulse 105 H 09/07/20 18:00 Resp 39 H 09/07/20 18:00 BP 87/48 09/07/20 18:00 Pulse Ox 92 L 09/07/20 18:00 Intake & Output 09/06/20 09/07/20 09/07/20 18:59 06:59 18:59 Intake Total 1000 900 510 Output Total 780 510 875 Balance 220 390 -365 Weight 35.8 kg 35 kg Intake: IV 900 900 510 Sodium Chloride 0.9% 1, 900 900 510 000 ml @ 40 mls/hr IV . Q24H [facility] Rx#:[id number] Oral 100 Output: Urine 780 510 875 Other: Voiding Method Indwelling Catheter Indwelling Catheter Indwelling Catheter # Bowel Movements 2 1 5 ABP, PAP, CO, CI - Last Documented Arterial Blood Pressure 115/58 - Exam -GENERAL: The patient is alert and oriented x3, not in any acute distress. Frail and cachectic HEENT: Pupils are round and equally reacting to light. EOMI. No scleral icterus. No conjunctival pallor. Normocephalic, atraumatic. No pharyngeal erythema. No thyromegaly. CARDIOVASCULAR: S1 and S2 present. No murmurs, rubs, or gallops. PULMONARY: Chest is clear to auscultation, no wheezing or crackles. ABDOMEN: Soft, nontender, nondistended, normoactive bowel sounds. No palpable organomegaly. MUSCULOSKELETAL: No joint swelling or deformity. EXTREMITIES: No cyanosis, clubbing, or pedal edema. NEUROLOGICAL: Gross neurological examination did not reveal any focal deficits. SKIN: No rashes. no petechiae. - Labs CBC & Chem 7: 09/07/20 18:40 09/07/20 04:00 Labs: Abnormal Lab Results - Last 24 Hours (Table) 09/07/20 09/07/20 09/07/20 Range/Units 04:00 04:00 12:36 WBC 25.4 H 22.4 H (3.8-10.6) k/uL Hct 47.5 H (34.0-46.0) % RDW 16.8 H 16.8 H (11.5-15.5) % Chloride 111 H (98-107) mmol/L Carbon Dioxide 31 H (22-30) mmol/L BUN 58 H (7-17) mg/dL Glucose 114 H (74-99) mg/dL Microbiology - Last 24 Hours (Table) 09/06/20 02:10 Urine Culture - Final Urine,Voided Assessment and Plan Assessment: Acute inferior STEMI status post stent of the RCA with ischemic cardiomyopathy and ejection fraction of 40-45% Mostly upper GI bleed with acute blood loss anemia, status post 2 units of blood transfusion Possible aspiration pneumonia with bilateral pleural effusion Chronic kidney disease Severe coronary protein malnutrition Plan: This is a pleasant 70 years old female who presents with STEMI, status post stent to RCA, upper GI bleed, possible aspiration pneumonia. Continue with gentle hydration, continue with antiplatelet therapy, dual as per cardiology's recommendation. Benefits more than risks. Continue with Protonix with close monitoring of hemoglobin. GI team on the case Continue with pulmonary/critical care team Continue with Zosyn for aspiration pneumonia. Labs and medication were reviewed.. Continue same treatment. Continue with symptomatic treatment. Resume home medication. Monitor lytes and vitals. DVT and GI prophylaxis. Further recommendationsas per clinical course of the patient DVT prophylaxis: No anticoagulation for possible GI bleed GI Prophylaxis: Ppi Prognosis is guarded. Patient is at-risk of physical deterioration especially with multiple complicated medical problems with malnutrition, she deteriorates significantly then consider talking to the family to dress CODE STATUS
[2020-09-08 01:02] LABS: Anisocytosis Slight; HCT 43.8 % (34.0-46.0); HGB 13.7 gm/dL (11.4-16.0); Hypochromasia Marked; MCH 30.1 pg (25.0-35.0); MCHC 31.3 g/dL (31.0-37.0); MCV 96.2 fL (80.0-100.0); Mean Platelet Volume 8.3; Platelet Count 226 k/uL (150-450); Poikilocytosis Slight; RBC 4.55 m/uL (3.80-5.40); RDW 16.7 % (11.5-15.5); WBC 23.2 k/uL (3.8-10.6)
[2020-09-08] MEDS: NOREPINEPHRINE 4 MG in SODIUM CHLORIDE 0.9% 250 ML IV SCH ×2 (01:07→06:09)
[2020-09-08] MEDS: LEVOTHYROXINE 25 MCG TAB PO SCH (06:08)
[2020-09-08 06:18] LABS: Calcium 8.1 mg/dL (8.4-10.2); Magnesium 1.9 mg/dL (1.6-2.3); Potassium 4.3 mmol/L (3.5-5.1)
--- NOTE | 2020-09-08 06:19 | XR ---
EXAMINATION TYPE: XR chest 1V portable DATE OF EXAM: 09/08/2020 CLINICAL HISTORY: Difficulty breathing and hypoxia progress study. TECHNIQUE: Single AP portable semiupright view of the chest is obtained. COMPARISON: Chest x-ray from one day earlier and older studies. FINDINGS: Biapical pleural/parenchymal thickening. Background chronic emphysematous change with pers istent small to tiny left pleural effusion and more moderate size right pleural effusion with associa edgar compressive atelectasis are all redemonstrated. Cardiac silhouette size stable and within normal limits with silhouetting right heart border and hemidiaphragm redemonstrated. Underlying scoliosis ag ain seen. Surgical clips epigastric region redemonstrated. IMPRESSION: Chronic emphysematous change with moderate-size right pleural effusion and small to tiny left pleural effusion with associated bibasilar compressive atelectasis are all redemonstrated. No s ignificant change from one day earlier.
[2020-09-08] MEDS ORDERED: Magnesium Replacement Protocol 1 EACH MISC MISCELLANE PRN (06:28)
[2020-09-08 06:29] LABS: Anisocytosis Slight; HGB 14.8 gm/dL (11.4-16.0); Hypochromasia Marked; MCH 30.4 pg (25.0-35.0); MCHC 32.1 g/dL (31.0-37.0); MCV 94.6 fL (80.0-100.0); Mean Platelet Volume 8.5; Platelet Count 224 k/uL (150-450); Poikilocytosis Slight; RBC 4.87 m/uL (3.80-5.40); RDW 16.7 % (11.5-15.5); WBC 20.3 k/uL (3.8-10.6)
[2020-09-08] MEDS: MAGNESIUM SULFATE-D5W PMX 1 GM in DEXTROSE/WATER 1 100ML.BAG IVPB SCH ×2 (06:37→07:57)
[2020-09-08] MEDS: SYMBICORT 160-4.5 MCG INHALER INHALATION SCH (07:22)
[2020-09-08] MEDS: IPRATROPIUM-ALBUTEROL 3 ML NEB INHALATION SCH (07:23)
[2020-09-08] MEDS: PIPERACILLIN-TAZOBACTAM 3.375 GM in SODIUM CHLORIDE 0.9% 100 ML IVPB SCH (07:58)
[2020-09-08] MEDS: PANTOPRAZOLE 40 MG/10 ML VIAL IVP SCH (07:59)
[2020-09-08] MEDS: CALCIUM CARB-VIT D 500 MG-5 MCG TAB PO SCH (07:59)
[2020-09-08] MEDS: CLOPIDOGREL 75 MG TAB PO SCH (07:59)
[2020-09-08] MEDS: METOPROLOL TARTRATE 25 MG TAB PO SCH (07:59)
--- NOTE | 2020-09-08 08:17 | CONS ---
CONSULTATION DATE OF SERVICE: 09/07/2020 PURPOSE FOR CONSULTATION: Evaluate for issues relating to unsafe living situation. HISTORY OF PRESENTING ILLNESS: The patient is a 70-year-old female. She has a history of COPD, hypertension, and chronic nicotine dependence. She was sent to the hospital by home health care nurse due to concerns about unsafe living environment at home. She has subsequently been evaluated and is undergoing care related to cardiac issues. From a psychiatric standpoint, apparently she has a difficult home environment, as yet I do not have full details. Apparently she was assessed as being in a home environment that is unsafe for her to live. Current psychotropic medications that she is on presently include Remeron 45 mg a day as her only psychotropic medication prior to admission. She has been continued on the Remeron and also has available Ativan 0.5 mg p.r.n. and Restoril 25 mg p.r.n. I only talked briefly to the patient as she was receiving some breathing treatment. I talked to the patient's son. He lives out of state, though is home because of the current situation. He is her only child. 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 In addition, apparently, there is also a significant number of animals in the house as well. Son indicates that the patient has had lifelong problems with depression. He notes that his intention is to pursue guardianship. At the present he says that he is not too aware of the day-to-day issues for the patient as he lives in [place], however, one of his relatives lives in the area and is familiar with the patient as far as her functioning on a day-to-day basis. Her name is Eleni Hall and her number is [phone]. I have not been able to make contact with her as yet. ASSESSMENT: This 70-year-old female apparently has had significant long-term problems with depression. She also has an apparent unlivable home situation. There are not specific psychiatric recommendations in regard to the care of the patient during her hospitalization. More information needs to be gathered about her living circumstances and apparent possible alternatives. I will continue to follow. MMODL / IJN: [id number] /
[2020-09-08 08:23] VITALS: TEMP 98.1
--- NOTE | 2020-09-08 08:35 | PN ---
PROGRESS NOTE DATE OF SERVICE: 09/08/2020 INTERVAL HISTORY: Patient is a 70-year-old white female admitted to hospital with acute inferior wall [place], presently remains in the intensive care unit, tachypneic and tachycardic. She was started on BiPAP last night. As per the nursing staff she had 2 bloody bowel movements last night. Hemoglobin this morning is 14.8 g/dL. She has been on Protonix 40 mg twice daily and continues to remain on aspirin and Plavix because of recent cardiac catheterization with stent placement. She was also started on broad-spectrum antibiotics for possible aspiration pneumonia. PHYSICAL EXAMINATION: Remains on BiPAP, somewhat sleepy. Vital signs show blood pressure of 95/50, pulse rate 80, temperature 98. HEENT: Examination unremarkable. Conjunctivae are pink. Sclerae anicteric. Oral cavity no lesions. NECK: No JVD. CHEST: Decreased breath sounds bilaterally. She has labored breathing. HEART: Regular rate and rhythm. ABDOMEN: Soft, nontender, bowel sounds are positive. EXTREMITIES: No pedal edema. NEURO: She is quite sleepy. LABS: From today WBC 20.3, hemoglobin 14, platelets 225, BUN 73, creatinine 1.32. IMPRESSION: 1. Acute GI bleed. The patient with intermittent black tarry stools, possible upper GI source of bleeding. She was scheduled for an upper endoscopy yesterday, but the procedure was canceled because of underlying cardiorespiratory status and as patient was very tachypneic. Presently, she is on BiPAP. She had some bleeding last night. Hemoglobin stable at 14.8 g/dL. She received 2 units of PRBC transfusion 2 days ago. On Protonix 40 mg twice daily. 2. Acute inferior wall myocardial infarction, status post angioplasty with stent placement. On aspirin and Plavix. 3. Aspiration pneumonia on broad-spectrum antibiotics. 4. Elevated BUN and creatinine/acute kidney injury. 5. Acute respiratory failure on BiPAP. Presently, she is DNR. RECOMMENDATION: 1. Continue with Protonix 40 mg twice daily. 2. Not a candidate for any endoscopic intervention because of underlying cardiopulmonary status. 3. Continue broad-spectrum antibiotics. 4. Monitor CBC daily. 5. We will follow with you closely. MMODL / IJN: [id number] /
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
[2020-09-08] MEDS ORDERED: LORazepam 2 MG/ML INJ IV PRN (09:52)
[2020-09-08] MEDS: ASPIRIN 81 MG PO SCH (09:57)
[2020-09-08] MEDS: lisinopriL 5 MG TAB PO SCH (09:57)
[2020-09-08 10:07] VITALS: BP 78/31; PULSE 61; RESP 34
[2020-09-08] MEDS: MORPHINE SULFATE 2 MG/ML SYRINGE IV PRN ×2 (10:32→11:33)
--- NOTE | 2020-09-08 16:29 | P.PN ---
Subjective Progress Note Date: 09/08/20 This 70-year-old female who is extremely debilitated was admitted to the hospital with evidence of inferior wall MO. Patient had a cardiac catheterization and stent placement of the RCA which was totally occluded. She was on aspirin and Plavix. She started having bloody stools and diarrhea and GI bleeding with a drop in hemoglobin. Patient received 2 units of blood transfusion. Seen by gastroenterology. Patient was scheduled to have endoscopy studies. Because of her debilitated status, anesthesia cancer of the procedure. Patient is complaining of bloody diarrhea. She wants to go home. Chest x-ray shows bilateral pleural effusion, right more than left. Her white count went up to it is suspected that patient may have aspiration pneumonia. She is being treated with antibiotics. Overall her clinical status is unstable. We'll continue with aspirin and Plavix. She is on Protonix. Prognosis is guarded. 09/08/2020: This patient's condition has a deteriorated with significant respiratory compromise. Patient mental status also changed. Considering of general ill health and worsening overall condition, after discussed with family it was decided that patient will be considered for comfort care. Objective - Vital Signs Vital signs: Vital Signs Temp 98.1 F 09/08/20 08:00 Pulse 61 09/08/20 10:00 Resp 34 H 09/08/20 10:00 BP 78/31 09/08/20 10:00 Pulse Ox 95 09/08/20 09:00 Intake & Output 09/07/20 09/08/20 09/08/20 18:59 06:59 18:59 Intake Total 770.261 5419.214 663.954 Output Total 945 340 55 Balance -798.709 4160.214 608.954 Weight 35.5 kg Intake: IV 590 1540 410 Magnesium Sulfate-D5w Pmx 200 1 gm In Dextrose/Water 1 100ml.bag @ 100 mls/hr IVPB Q1H [facility] Rx#: [id number] Piperacillin-Tazobactam 3 100 50 .375 gm In Sodium Chloride 0.9% 100 ml @ 25 mls/hr IVPB Q8HR [facility] Rx# :[id number] Sodium Chloride 0.9% 1, 590 440 160 000 ml @ 40 mls/hr IV . Q24H [facility] Rx#:[id number] Sodium Chloride 0.9% 1, 1000 000 ml @ 999 mls/hr IV . Q1H1M [facility] Rx#:[id number] Intake, IV Titration 4.372 440.214 253.954 Amount Norepinephrine 4 mg In 4.372 440.214 253.954 Sodium Chloride 0.9% 250 ml @ 0.05 MCG/KG/MIN 5. 962 mls/hr IV .Q24H [facility] Rx#:[id number] Output: Urine 945 340 55 Other: Voiding Method Indwelling Catheter Indwelling Catheter Indwelling Catheter # Bowel Movements 3 2 ABP, PAP, CO, CI - Last Documented Arterial Blood Pressure 115/58 - Exam GENERAL EXAM: Patient is thin and ill-looking. In respect to distress and mainly responding HEENT: Normocephalic. Normal reaction of pupils, equal size, normal range of extraocular motion. No erythema or exudates in the throat. NECK: No masses, no nuchal rigidity. CHEST: No chest wall deformity. LUNGS: Diminished breath sounds at both bases HEART: S1 and S2 normal with no audible mumurs or gallops. Regular rhythm, femorals equal on both sides.. ABDOMEN: No hepatosplenomegaly, normal bowel sounds, no guarding or rigidity. SKIN: No rashes CENTRAL NERVOUS SYSTEM: No focal deficits. EXTREMITIES: No cyanosis, clubbing or edema. - Labs CBC & Chem 7: 09/08/20 05:54 09/08/20 05:39 Labs: Abnormal Lab Results - Last 24 Hours (Table) 09/07/20 09/07/20 09/08/20 Range/Units 04:00 18:40 00:54 WBC 17.1 H 23.2 H (3.8-10.6) k/uL RDW 16.8 H 16.7 H (11.5-15.5) % Sodium (137-145) mmol/L Chloride (98-107) mmol/L Carbon Dioxide (22-30) mmol/L BUN (7-17) mg/dL Creatinine (0.52-1.04) mg/dL Glucose (74-99) mg/dL Calcium (8.4-10.2) mg/dL Procalcitonin 0.27 H (0.02-0.09) ng/mL 09/08/20 09/08/20 Range/Units 05:39 05:54 WBC 20.3 H (3.8-10.6) k/uL RDW 16.7 H (11.5-15.5) % Sodium 149 H (137-145) mmol/L Chloride 118 H (98-107) mmol/L Carbon Dioxide 21 L (22-30) mmol/L BUN 73 H (7-17) mg/dL Creatinine 1.32 H (0.52-1.04) mg/dL Glucose 165 H (74-99) mg/dL Calcium 8.1 L (8.4-10.2) mg/dL Procalcitonin (0.02-0.09) ng/mL Microbiology - Last 24 Hours (Table) 09/06/20 02:10 Urine Culture - Final Urine,Voided Assessment and Plan (1) Pleural effusion Current Visit: Yes Status: Acute Code(s): J90 - PLEURAL EFFUSION, NOT ELSEWHERE CLASSIFIED SNOMED Code(s): 45645493 (2) AMI inferior wall Current Visit: Yes Status: Acute Code(s): I21.19 - STEMI INVOLVING OTH CORONARY ARTERY OF INFERIOR WALL SNOMED Code(s): 30217208 (3) Acute kidney injury Current Visit: Yes Status: Acute Code(s): N17.9 - ACUTE KIDNEY FAILURE, UNSPECIFIED SNOMED Code(s): 13016804 (4) COPD exacerbation Current Visit: Yes Status: Acute Code(s): J44.1 - CHRONIC OBSTRUCTIVE PULMONARY DISEASE W (ACUTE) EXACERBATION SNOMED Code(s): 792937871 (5) GI bleeding Current Visit: Yes Status: Acute Code(s): K92.2 - GASTROINTESTINAL HEMORRHAGE, UNSPECIFIED SNOMED Code(s): 28445620 Plan: Patient condition was discussed with family. Constricted for comfort care Agree with current management with comfort care
--- NOTE | 2020-09-08 21:28 | P.DS ---
Providers Date of admission: 09/05/20 13:16 Attending physician: Vicki Mejia Consults: 09/05/20 13:16 Consult Physician Urgent Consulting Provider: Susu Benjamin Consult Reason/Comments: STEMI Do you want consulting provider notified?: Already Contacted 09/05/20 13:53 Consult Physician Routine Consulting Provider: [facility] Consult Reason/Comments: Post Interventional patient Do you want consulting provider notified?: Already Contacted 09/05/20 19:41 Consult Physician Stat Consulting Provider: Hang Blanton Consult Reason/Comments: icu management Do you want consulting provider notified?: Yes 09/06/20 10:56 Consult Physician Urgent Consulting Provider: Delma Levin Consult Reason/Comments: GIB Do you want consulting provider notified?: Yes 09/06/20 14:30 Consult Physician Routine Consulting Provider: Camilo Romero Consult Reason/Comments: mental health petition by police Do you want consulting provider notified?: Yes Primary care physician: [facility] Hospital Course: Diagnoses: Acute inferior STEMI status post stent of the RCA with ischemic cardiomyopathy and ejection fraction of 40-45% Mostly upper GI bleed with acute blood loss anemia, status post 2 units of blood transfusion aspiration pneumonia with bilateral pleural effusion Chronic kidney disease Severe calorie protein malnutrition Hospital course: his is a pleasant 70 years old female with multiple medical problems was admitted with inferior STEMI status post stent placement of the RCA. Patient was placed on the drug eluting stent and because of this she will need aspirin and Plavix for 1 year to keep stent open per [employer]. However patient developed upper GI bleed, placed on Protonix IV twice daily, consult GI team and they are holding on any endoscopic or EGD for patient is not medically stable. However hemoglobin is a stable at 14.7 after 2 units of blood transfusion due to low hemoglobin at 9.3. Today chest x-ray showing bilateral pleural effusion more of the right with atelectasis and possible pneumonia, patient was started on Zosyn for possible aspiration pneumonia Also creatinine is 1.6, patient with chronic kidney disease stage III Echocardiogram showing ejection fraction of 40-45% with hypokinesia secondary to ischemic cardiomyopathy. However her condition started to deteriorate despite multiple therapies and multiple consultants monitoring her. She went into shock, despite several attempts to save her with fluids and IV pressors however her urine output stopped become obtunded and responsive, hypernatremic, creatinine of 1.3, carmela ntually critical care team discussed the case with family and son who made her DO NOT RESUSCITATE/DO NOT INTUBATE and comfort care Eventually patient today, please refer to nurses notes for more details Patient Condition at Discharge: Serious Plan - Discharge Summary Discharge Rx Participant: No New Discharge Prescriptions: No Action Albuterol Inhaler [Ventolin Hfa Inhaler] 1 puff INHALATION RT-QID PRN PRN Reason: Shortness Of Breath Or Wheezing Metoprolol Tartrate [Lopressor] 25 mg PO BID Mirtazapine 45 mg PO HS Omeprazole 20 mg PO DAILY Verapamil [Isoptin] 40 mg PO BID Tiotropium 2.5 Mcg/Puff [Spiriva Respimat 2.5 Mcg] 2 puff INHALATION RT-DAILY Fluticasone Nasal [place] [Flonase Nasal [place]] 1 spray EA NOSTRIL BID PRN PRN Reason: Allergy Symptoms Calcium Carbonate/Vitamin D3 [Calcium 500 mg-Vit D3 5 mcg (200 Unit)] 3 tab PO DAILY Lactose-Reduced Food [Ensure Original] 1 can PO TID Furosemide [Lasix] 20 mg PO DAILY #30 tab Varenicline [Chantix Starter Pack] 0.5 mg PO BID Budesonide/Formoterol Fumarate [Symbicort 160-4.5 Mcg Inhaler] 2 puff INHALATION RT-BID Cyclobenzaprine [Flexeril] 5 mg PO BID PRN PRN Reason: Muscle Spasm Lidocaine 5% Patch [Lidoderm 5% Patch] 1 patch TOPICAL DAILY PRN PRN Reason: Pain Levothyroxine Sodium 25 mcg PO DAILY Vdvnhjm-Pixe-Drev [id number] [Excedrin] 1 tab PO Q4HR PRN PRN Reason: Pain Famotidine [Pepcid] 20 mg PO HS PRN PRN Reason: Heartburn hydrOXYzine pamoate [hydrOXYzine PAMOATE] 25 mg PO BID PRN PRN Reason: Anxiety Potassium Chloride ER [K-Dur 10] 10 meq PO DAILY PRN PRN Reason: WHEN TAKING LASIX Atorvastatin [Lipitor] 80 mg PO HS Discharge Medication List Albuterol Inhaler [Ventolin Hfa Inhaler] 1 puff INHALATION RT-QID PRN 12/27/19 [History] Metoprolol Tartrate [Lopressor] 25 mg PO BID 12/27/19 [History] Mirtazapine 45 mg PO HS 12/27/19 [History] Omeprazole 20 mg PO DAILY 12/27/19 [History] Verapamil [Isoptin] 40 mg PO BID 12/27/19 [History] Budesonide/Formoterol Fumarate [Symbicort 160-4.5 Mcg Inhaler] 2 puff INHALATION RT-BID 07/03/20 [History] Fluticasone Nasal [place] [Flonase Nasal [place]] 1 spray EA NOSTRIL BID PRN 07/03/20 [History] Tiotropium 2.5 Mcg/Puff [Spiriva Respimat 2.5 Mcg] 2 puff INHALATION RT-DAILY 07/03/20 [History] Ypcchie-Mdvf-Feqi [phone] [Excedrin] 1 tab PO Q4HR PRN 08/21/20 [History] Calcium Carbonate/Vitamin D3 [Calcium 500 mg-Vit D3 5 mcg (200 Unit)] 3 tab PO DAILY 08/21/20 [History] Cyclobenzaprine [Flexeril] 5 mg PO BID PRN 08/21/20 [History] Lactose-Reduced Food [Ensure Original] 1 can PO TID 08/21/20 [History] Levothyroxine Sodium 25 mcg PO DAILY 08/21/20 [History] Lidocaine 5% Patch [Lidoderm 5% Patch] 1 patch TOPICAL DAILY PRN 08/21/20 [History] Furosemide [Lasix] 20 mg PO DAILY #30 tab 08/24/20 [Rx] Atorvastatin [Lipitor] 80 mg PO HS 09/05/20 [History] Famotidine [Pepcid] 20 mg PO HS PRN 09/05/20 [History] Potassium Chloride ER [K-Dur 10] 10 meq PO DAILY PRN 09/05/20 [History] Varenicline [Chantix Starter Pack] 0.5 mg PO BID 09/05/20 [History] hydrOXYzine pamoate [hydrOXYzine PAMOATE] 25 mg PO BID PRN 09/05/20 [History] Follow up Appointment(s)/Referral(s): Josef Andrews MD [STAFF PHYSICIAN] - 1 Week [facility] [Primary Care Provider] - 1-2 days Discharge Disposition: - Preliminary Cause of Preliminary Cause of : STEMI, GI Bleed, sepsis
== END 2020-09-08 16:31 | disposition expired | DRG 246 ==
LOC: EC 09:56 → 2SICU 13:10
PROVIDERS: ADMIT Internal Medicine; ATTEND Internal Medicine
PROC: 027034Z Dilation of Coronary Artery, One Artery with Drug-eluting Intraluminal Device, Percutaneous Approach (ICD-10-PCS; principal; 2020-09-05 12:30)
PROC: B41F1ZZ Fluoroscopy of Right Lower Extremity Arteries using Low Osmolar Contrast (ICD-10-PCS; principal; 2020-09-05 12:30)
PROC: B2111ZZ Fluoroscopy of Multiple Coronary Arteries using Low Osmolar Contrast (ICD-10-PCS; principal; 2020-09-05 12:30)
PROC: 4A023N7 Measurement of Cardiac Sampling and Pressure, Left Heart, Percutaneous Approach (ICD-10-PCS; principal; 2020-09-05 12:30)
PROC: 3E033XZ Introduction of Vasopressor into Peripheral Vein, Percutaneous Approach (ICD-10-PCS; 2020-09-05 12:30)
PROC: 30233N1 Transfusion of Nonautologous Red Blood Cells into Peripheral Vein, Percutaneous Approach (ICD-10-PCS; 2020-09-05 12:30)
PROC: 5A09457 Assistance with Respiratory Ventilation, 24-96 Consecutive Hours, Continuous Positive Airway Pressure (ICD-10-PCS; 2020-09-07)
DX: I21.19 ST elevation (STEMI) myocardial infarction involving other coronary artery of inferior wall (principal); E43 Unspecified severe protein-calorie malnutrition; J96.21 Acute and chronic respiratory failure with hypoxia; J69.0 Pneumonitis due to inhalation of food and vomit; A41.9 Sepsis, unspecified organism; I50.23 Acute on chronic systolic (congestive) heart failure; R57.9 Shock, unspecified; R64 Cachexia; N17.9 Acute kidney failure, unspecified; I13.0 Hypertensive heart and chronic kidney disease with heart failure and stage 1 through stage 4 chronic kidney disease, or unspecified chronic kidney disease; J44.1 Chronic obstructive pulmonary disease with (acute) exacerbation; Z68.1 Body mass index [BMI] 19.9 or less, adult; K92.1 Melena; D62 Acute posthemorrhagic anemia; E87.0 Hyperosmolality and hypernatremia; J98.11 Atelectasis; I47.1 Supraventricular tachycardia; R65.21 Severe sepsis with septic shock; R57.0 Cardiogenic shock; I27.20 Pulmonary hypertension, unspecified; R62.7 Adult failure to thrive; N18.30 Chronic kidney disease, stage 3 unspecified; I25.5 Ischemic cardiomyopathy; Z66 Do not resuscitate; Z51.5 Encounter for palliative care; I25.10 Atherosclerotic heart disease of native coronary artery without angina pectoris; E86.0 Dehydration; I08.1 Rheumatic disorders of both mitral and tricuspid valves; E78.5 Hyperlipidemia, unspecified; E78.00 Pure hypercholesterolemia, unspecified; F32.9 Major depressive disorder, single episode, unspecified; F42.3 Hoarding disorder; E03.9 Hypothyroidism, unspecified; K57.90 Diverticulosis of intestine, part unspecified, without perforation or abscess without bleeding; K21.9 Gastro-esophageal reflux disease without esophagitis; I25.2 Old myocardial infarction; G89.29 Other chronic pain; M54.9 Dorsalgia, unspecified; F41.9 Anxiety disorder, unspecified; R91.8 Other nonspecific abnormal finding of lung field; F17.210 Nicotine dependence, cigarettes, uncomplicated; Z71.6 Tobacco abuse counseling; Z53.8 Procedure and treatment not carried out for other reasons; Z60.2 Problems related to living alone; Z99.81 Dependence on supplemental oxygen; Z79.82 Long term (current) use of aspirin; Z79.51 Long term (current) use of inhaled steroids; Z79.890 Hormone replacement therapy; Z79.899 Other long term (current) drug therapy; Z59.8 Other problems related to housing and economic circumstances; Z90.89 Acquired absence of other organs; Z90.3 Acquired absence of stomach [part of]; Z87.11 Personal history of peptic ulcer disease; Z98.42 Cataract extraction status, left eye; Z98.41 Cataract extraction status, right eye; Z98.890 Other specified postprocedural states; Z88.8 Allergy status to other drugs, medicaments and biological substances; Z82.49 Family history of ischemic heart disease and other diseases of the circulatory system
CPT/HCPCS: 36415; 36600; 71045; 71046; 80048; 80053; 80061; 80306; 81001; 82550; 83690; 83735; 84145; 84443; 84484; 85025; 85027; 86850; 86900; 86901; 86920; 87086; 93005; 93308; 93458; 94640; 94660; 96374; 99291